=== PATIENT | male | born 1940 | race Caucasian/White ===

== ENCOUNTER → 2017-11-23 10:59 | Outpatient (CLI) | payer MEDICARE, OTHER, SELFPAY ==
--- NOTE | 2017-11-23 | DI.CT.S_ITS ---
PROCEDURE: CT LUMBAR SPINE WO CON INDICATIONS: LOW BACK PAIN TECHNIQUE: Noncontrast 3 mm thick sections acquired from the T12 level to the sacrum. Sagittal and coronal reformats were constructed. For radiation dose reduction, the following was used: automated exposure control. COMPARISON: None. FINDINGS: Image quality: Excellent. Bones: Partially visualized lateral curvature of the spine. Grade 1 anterolisthesis of L4 on L5. No acute vertebral body compression fractures. Diffuse endplate spurring and degenerative sclerosis. No suspicious lytic or blastic bony lesions. T12-L1: Mild broad-based posterior disc bulge, without definite high-grade canal stenosis. Moderate bilateral bony foraminal narrowing. L1-L2: There is dorsal epidural lipomatosis. Mild canal narrowing is present. Mild bilateral foraminal narrowing L2-L3: Dorsal epidural lipomatosis is present. There is mild broad-based posterior disc bulge. There is moderate-severe canal stenosis. Mild bilateral foraminal narrowing. L3-L4: Broad-based posterior disc bulge and dorsal epidural lipomatosis. Bilateral facet arthropathy. There is severe canal stenosis. Severe bilateral foraminal narrowing. L4-L5: Broad-based posterior disc bulge and ligamentum flavum hypertrophy. Bilateral facet disease from. Severe canal stenosis. Moderate bilateral foraminal narrowing L5-S1: Mild broad-based posterior disc bulge. Mild canal narrowing. Mild bilateral foraminal stenoses. Soft tissues: No retroperitoneal masses or hematomas. Visualized aorta is normal in caliber. Fluid-filled reservoir seen within the left pelvis partially visualized. IMPRESSION: Severe canal stenosis at L2-L3, L3-L4 and L4-L5 although due in part to dorsal epidural lipomatosis. Diffuse bilateral foraminal stenoses, most pronounced at L3-L4 (bilateral). Facet arthropathy. Partially visualized lateral curvature of the spine. Grade 1 anterolisthesis of L4 on L5. Dictated by: Jayden Edouard M.D. on 11/23/2017 at 13:10 Approved by: Jayden Edouard M.D. on 11/23/2017 at 13:49
== END ==
PROVIDERS: Family Provider Family Medicine; PCP Family Medicine; Visit Provider Physical Medicine & Rehabilitation
DX: M48.061 Spinal stenosis, lumbar region without neurogenic claudication (principal); M99.73 Connective tissue and disc stenosis of intervertebral foramina of lumbar region; M47.816 Spondylosis without myelopathy or radiculopathy, lumbar region; M43.16 Spondylolisthesis, lumbar region
CPT/HCPCS: 72131

== ENCOUNTER → 2018-04-28 11:54 | Outpatient (CLI) | payer MEDICARE, OTHER, SELFPAY ==
--- NOTE | 2018-04-28 13:21 | DIET.PN ---
DIABETES Nutrition Initial Assessment:? ASSESS:??78? yom?? referred for type 2 diabetes, HTN, and hyperlipidemia. Pt states he has had an elevated a1c in the past, but was just recently diagnosed. Has lost around 25# in the last few months through diet. He does not have a glucometer yet, but will contact insurance to find out which meter to get to begin checking. ? LABS: Per pt report:? a1c: 8.0 Chol: 161 T HDL: 51 LDL: 91 ? MEDS:?? metformin 500mg BID ? DIET: Per 24-hour recall:? B: pro bar w/ OJ L: turkey sandwich w/ yogurt butter D: lean cuisine with salad and 2-3 Tsp [place] ? Weight: 217 Ht:? 71.5 ? Exercise:? walks on treadmill at home 20-60 min low intensity (depending what is on TV) NUTRITION DX ? (1) Altered Nutrition related labs related to impaired glucose metabolism, lack of previous exposure to accurate nutrition information as evidenced by pt report, dx of diabetes, previous diet high in refined carbohydrates.? INTERVENTION(s): ??? (1) Discussed pathophysiology of diabetes and impact of nutrition/diet on blood sugar control.? Discussed fed versus non-fed state.? (2) Discussed the effect of carbohydrates/protein/fat on blood sugar control.? Stressed importance of consistent carbohydrate intake at each meal and provided instructions for recommended servings/portions of carbohydrates/protein per meal. Provided pt with educational material. ? (3) Reviewed carbohydrate counting and measuring carbohydrate content via servings sizes and reading nutrition labels.? Provided handouts.? (4) Discussed the difference between simple versus complex carbohydrates and the effect of fiber on blood sugar control.? Discussed various methods to increase fiber content in diet. ? (5) Stressed importance of meal timing and not going >4-5 hours between meals. Encouraged adding protein to evening snack to support glucose control overnight. Patient agreeable. ? (6) Discussed healthy weight loss goals of 1-2lbs per week through diet and exercise.? Pt agreeable to walking at least 30 minutes daily. (7) Reviewed a1c and its correlation to blood glucose numbers. Discussed recommended blood glucose ranges. (8) Discussed importance of self-monitoring, how often, and when to check. (9) Reviewed hyper/hypoglycemia and treatment. (10) Created SMART goals for pt self-care and success. SMART goals: (1) A1c goal of 7.5 in the next 3 mo (overall goal of 7.0) (2) Goal weight of 200# in the next 3 mo through dietary changes and increased physical activity. MONITOR/EVALUATE: Anticipate good compliance.? Nutrition follow-up scheduled for 1 month to review glucose log, food record, weight and discuss fat/protein intake.
== END ==
PROVIDERS: PCP Family Medicine; Visit Provider Family Medicine
DX: E11.9 Type 2 diabetes mellitus without complications (principal)
CPT/HCPCS: 97802

== ENCOUNTER → 2018-05-26 10:52 | Outpatient (CLI) | payer MEDICARE, OTHER, SELFPAY ==
--- NOTE | 2018-05-26 12:29 | DIET.PN ---
Nutrition Follow Up? ? ASSESS:? Pt has been keeping track of daily intake and steps since last appt x1 mo. Reports less snacking, but is having some difficulty incorporating the appropriate amount of carbohydrates per meal. States he averages around 150 grams per day. Reported other changes to dietary habits including comparing labels, choosing new sources of condiments and beverages, and choosing more natural food sources. Pt presented with several questions regarding increased fatigue following meal times, evening snack options, blood glucose monitoring, and carbohydrate vs sugar label reading. ? PMHX:??hyperlipidemia, HTN ? LABS: A1c: 7.3 (down from 8.0) per pt report Wt: 218 ? MEDS: Reviewed.? DM MEDS:??Metformin 500mg bid ??? Diet: Consuming ~45grams/meal + snacks ? EXERCISE:??walking on treadmill 15-45 min/day. Working to increase. ? NUTRITION Dx? (1) Altered nutrition related labs r/t type 2 DM, inconsistent carbohydrate intake as evidenced by pt report, dietary recall.?? ? INTERVENTION? (1) Discussed importance of monitoring BG in order to maintain good glucose control and adjust needed changes to eating habits. ?Recommended pt check with insurance or purchase glucometer to keep record of BG. ? (2) Reviewed carbohydrate counting and importance of consistent carbohydrate intake. Discussed different food items and how to locate accurate carbohydrate information. ? (3) Reviewed meal intake and importance of balanced meals to support glucose control and overeating.? (4) Assisted patient create a list of evening snack ideas to avoid hypoglycemia throughout the night. ?? ? MONITOR/EVALUATE: Pt receptive to information provided.? Follow-up scheduled for 1 month to discuss protein/fat and review food log.
== END ==
PROVIDERS: PCP Family Medicine; Visit Provider Family Medicine
DX: E11.9 Type 2 diabetes mellitus without complications (principal); Z79.84 Long term (current) use of oral hypoglycemic drugs
CPT/HCPCS: 97803

== ENCOUNTER → 2018-06-30 10:53 | Outpatient (CLI) | payer MEDICARE, OTHER, SELFPAY ==
--- NOTE | 2018-06-30 12:32 | DIET.PN ---
Diabetes: Advanced Nutrition F/U Assess: Met for patients 3rd appointment. Pt concerned he is eating too much as he is trying to maintain 30-45g carb count per meal with snacks in between. Reports weight gain since last appointment. Explained these are just guidelines and he is not required to eat as much if he is not hungry. Goal is consistency in carb amounts and blood glucose. Discussed removing daytime snacks between meals. Pt was able to get a monitor and has been checking BG 2x/day as recommended. I am concerned with a several elevated readings. Hoping these will resolve with modifications to eating patterns and recommendation for mild strength/resistance training. FBG is of biggest concern. FB-[id number] 2hrPP: 113-188 ( >200 x 2) Weight: 222 (up 4 lb from initial visit) Exercise: 20-35 min on treadmill most days Intervention: Discussed ? Fats ? effects on glucose, weight, heart disease, cholesterol ? Sat Vs Unsat ? Protein- animal and plant based options ? Low, med, high fat meats ? Sugar substitutes ? Sodium ? Health claims ? Grocery shopping guidelines ? Eating away from home ? Alcohol ? Sick day guidelines Monitor: F/U scheduled for 1 mo to review food log and bg record.
== END ==
PROVIDERS: PCP Family Medicine; Visit Provider Family Medicine
DX: E11.9 Type 2 diabetes mellitus without complications (principal)
CPT/HCPCS: 97803

== ENCOUNTER → 2018-07-28 12:58 | Outpatient (CLI) | payer MEDICARE, OTHER, SELFPAY ==
--- NOTE | 2018-07-28 15:52 | DIET.PN ---
Diabetes: F/U Assess: Pt presents today with concerns of weight gain. 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 Pt has been eating between 30-60 carbs per meal, but has not been keeping track of caloric, cholesterol or sodium intake. New A1c to be tested tomorrow (07/29/18). FB-190 2hrPP: 111-200 90 day av Weight: 223 (up 5 lb from initial visit) Intervention: 1. Discussed reducing carbs to 3 servings (45 grams) per meal. 2. Reviewed low saturated fat protein options. Provided list of lean proteins. 3. Provided individualized meal plan to include carb, protein, fat, sodium gram goals. Calories: 1800 kcal Carbs: 200 grams Protein: 70 grams Fat: 30 grams Sodium: 1500-2000mg Monitor: No f/u scheduled. Pt will f/u via phone call in 1 week with new weight and a1c.
== END ==
PROVIDERS: PCP Family Medicine; Visit Provider Family Medicine
DX: E11.9 Type 2 diabetes mellitus without complications (principal)
CPT/HCPCS: 97803

== ENCOUNTER → 2019-02-03 08:01 | Outpatient (CLI) | payer MEDICARE, OTHER, SELFPAY ==
--- NOTE | 2019-02-03 | DI.ECHO.S_ITS ---
[facility] +---------+ [facility] +---------+ : : [address] : : : : [id number] : : : : Phone: [phone] +---------+ Echocardiogram Report + + :Name: MARCO SCHMITT Study Date: 02/03/2019 Height: 71 in : :[facility] Weight: 220 lb : : Gender: Male BSA: 2.2 m2 : :: 1940 Age: 79 yrs BP: 108/68 mmHg: :Reason For Study: THORACIC AORTA ECTASIA : :Ordering Physician: Ney : :Shukri Pope Performed By: Elana Schwarz : + + Interpretation Summary The left ventricle is normal in size. The ejection fraction is estimated to be 55-60%. The right ventricle is normal in size and function. There is a pacemaker lead in the right ventricle. There is moderate to severe tricuspid regurgitation. Compared to the prior echo exam, there has been an increase in TR severity. The right ventricular systolic pressure is estimated to be at least 23 mmHg based on an estimated right atrial pressure of 3 mm Hg. The aortic root is mildly dilated. 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 In February 2016 it was 4.1 cm). Procedure: A two-dimensional transthoracic echocardiogram with color flow and Doppler was performed. The study quality was technically adequate. Comparison is made with the echocardiogram of 02/20/16 (complete). The patient has a paced rhythm. Left Ventricle: The left ventricle is normal in size. Left ventricular wall thickness is at the upper limits of normal. Proximal septal thickening is noted. There is no echo evidence for significant left ventricular outflow tract obstruction. There is no ventricular septal defect visualized. The ejection fraction is estimated to be 55-60%. Apical wall motion abnormality may reflect pacemaker activation. Septal motion is consistent with conduction abnormality. Diastolic function could not be accurately assessed due to paced rhythm. Right Ventricle: The right ventricle is normal in size and function. There is a pacemaker lead in the right ventricle. Atria: The left atrium is severely dilated. The left atrium has significantly increased in size since the prior echo exam. The right atrium is moderate to severely dilated. The right atrium has significantly increased in size since the prior echo exam. There is no Doppler evidence for an interatrial shunt. Mitral Valve: There is mild mitral annular calcification. The mitral valve leaflets are slightly calcified. There is mild mitral regurgitation. There has been no significant change since the previous study. Aortic Valve: The aortic valve is trileaflet. There is mild aortic valve sclerosis. There is no aortic valve stenosis. There is trace aortic regurgitation. Tricuspid Valve: The tricuspid annulus is dilated. There is moderate to severe tricuspid regurgitation. The right ventricular systolic pressure is estimated to be at least 23 mmHg based on an estimated right atrial pressure of 3 mm Hg. Compared to the prior echo exam, there has been an increase in TR severity. Pulmonic Valve: The pulmonic valve is not well seen, but is grossly normal. There is trace pulmonic regurgitation. Great Vessels: The aortic root is mildly dilated. The ascending aorta is mild-moderately enlarged. The aortic arch is normal in size. The IVC is of normal diameter and collapses greater than 50% with a sniff. This suggests a low right atrial pressure of 3 mm Hg. Pericardium/ Pleura There is no pericardial effusion. MMode/2D Measurements & Calculations LVIDd: 4.5 cm LVOT diam: 2.3 cm LVIDs: 2.9 cm Ao root diam: 4.4 cm FS: 35.5 % Aortic Jxn: 3.1 cm EPSS: 0.70 cm asc Aorta Diam: 4.0 cm IVSd: 1.0 cm Ao Arch Diam (Prox Trans): 2.0 cm LVPWd: 1.2 cm LV waller. diameter/BSA (cm/m^2): 2.0 LV sys. diameter/BSA (cm/m^2): 1.3 LA A2 area: 28.8 cm2 RA long axis: 5.7 cm LA A4 area: 27.3 cm2 RA area: 23.8 cm2 LA length (vol): 5.7 cm RA vol: 85.1 ml LA vol: 117.9 ml RA : 38.8 ml/m2 LA vol index: 53.7 ml/m2 IVC diam: 1.7 cm RVD1 (basal): 4.1 cm RVD2 (mid): 3.0 cm TAPSE: 2.7 cm Doppler Measurements & Calculations Ao V2 max: 93.6 cm/sec LVOT Max Eduardo: 75.1 cm/sec Ao V2 mean: 66.0 cm/sec LV V1 max P.3 mmHg Ao max P.5 mmHg LV V1 VTI: 15.4 cm Ao mean P.9 mmHg VIKI(I,D): 3.4 cm2 Ao V2 VTI: 18.7 cm VIKI(V,D): 3.3 cm2 sev ratio: 0.82 VIKI indexed to BSA (cm^2/m^2): 1.6 Med Peak E' Eduardo: 7.6 cm/sec TR max eduardo: 225.8 cm/sec Lat Peak E' Eduardo: 8.7 cm/sec TR max P.4 mmHg MVA(VTI): 4.2 cm2 PA V2 max: 64.4 cm/sec PA V2 mean: 40.5 cm/sec PA mean P.76 mmHg PA Accel Time: 0.07 sec MV V2 mean: 51.3 cm/sec SV(LVOT): 63.8 ml MV mean P.4 mmHg MV V2 VTI: 15.1 cm Reading Physician:04:59 PM
[2019-02-03 10:43] LABS: Cholesterol 135 mg/dL (140-199); HDL Cholesterol 43 mg/dL (40-60); LDL Cholesterol Calculated 75 mg/dL (<100); Triglycerides 83 mg/dL (35-150)
== END ==
PROVIDERS: PCP Family Medicine; Visit Provider Internal Medicine Cardiovascular Disease
DX: I08.1 Rheumatic disorders of both mitral and tricuspid valves (principal); I77.810 Thoracic aortic ectasia; E78.5 Hyperlipidemia, unspecified; Z95.0 Presence of cardiac pacemaker
CPT/HCPCS: 36415; 80061; 93306

== ENCOUNTER → 2020-03-01 13:34 | Outpatient (CLI) | payer MEDICARE, OTHER, SELFPAY ==
--- NOTE | 2020-03-01 | DI.ECHO.S_ITS ---
[facility]---------+ [facility] +---------+ : : [address] : : : : [id number] : : : : Phone: [phone]---------+ Echocardiogram Report + + :Name: MARCO SCHMITT Study Date: 03/01/2020 Height: 71 in : :[facility] Weight: 223 lb : : Gender: Male BSA: 2.2 m2 : :: 1940 Age: 80 yrs BP: 120/66 mmHg: :Reason For Study: TR : : Performed By: Hardeep Mason : :Referring: CHRISTINE ARENAS : + + Interpretation Summary The left ventricle is normal in size. The ejection fraction is estimated to be 55-60%. There has been no significant change in LV EF since the previous exam. The right ventricle is normal in size and function. There is a pacemaker lead in the right ventricle. There is moderate to severe tricuspid regurgitation. Compared to the prior echo exam, there has been no change in TR severity. The right ventricular systolic pressure is estimated to be at least 26 mmHg based on an estimated right atrial pressure of 3 mm Hg. Compared to the prior echo exam, there has been no change in the severity of pulmonary hypertension. The ascending aorta is mild-moderately enlarged. This is unchanged compared to the previous study. Procedure: A two-dimensional transthoracic echocardiogram with color flow and Doppler was performed. The study quality was technically good. Comparison is made with the echocardiogram of 02/03/19. The patient has a paced rhythm. Left Ventricle: The left ventricle is normal in size. There is normal left ventricular wall thickness. There is no thrombus. The ejection fraction is estimated to be 55-60%. There has been no significant change since the previous exam. There is a mild dyssynchronous contraction pattern due to the paced rhythm. Apical wall motion abnormality may reflect pacemaker activation. E/E' med: 11.6. Right Ventricle: The right ventricle is normal in size and function. There is a pacemaker lead in the right ventricle. Atria: The left atrium is severely dilated. The left atrium has remained unchanged in size since the prior echo exam. The right atrium is moderately dilated. There is no Doppler evidence for an atrial septal defect. Mitral Valve: There is mild mitral annular calcification. The mitral valve leaflets are slightly calcified. There is mild mitral regurgitation. Aortic Valve: The aortic valve is trileaflet. The aortic valve is mildly calcified. The aortic valve opens well. There is no aortic valve stenosis. There is trace aortic regurgitation. Tricuspid Valve: The tricuspid valve leaflets are thin and pliable. The tricuspid annulus is dilated. There is moderate to severe tricuspid regurgitation. The right ventricular systolic pressure is estimated to be at least 26 mmHg based on an estimated right atrial pressure of 3 mm Hg. Compared to the prior echo exam, there has been no change in TR severity. Compared to the prior echo exam, there has been no change in the severity of pulmonary hypertension. Pulmonic Valve: The pulmonic valve is normal in structure and function. There is trace pulmonic regurgitation. Great Vessels: The aortic root is normal size. The ascending aorta is mild- moderately enlarged. This is unchanged compared to the previous study. The pulmonary artery is normal size. The IVC is of normal diameter and collapses greater than 50% with a sniff. This suggests a low right atrial pressure of 3 mm Hg. Pericardium/ Pleura There is no pericardial effusion. There is no pleural effusion. MMode/2D Measurements & Calculations LVIDd: 4.6 cm LVOT diam: 2.5 cm LVIDs: 3.1 cm Ao root diam: 4.1 cm FS: 32.8 % asc Aorta Diam: 4.0 cm EPSS: 0.50 cm IVSd: 0.94 cm LVPWd: 0.93 cm LV waller. diameter/BSA (cm/m^2): 2.1 LV sys. diameter/BSA (cm/m^2): 1.4 LA dimension: 4.3 cm RA long axis: 6.2 cm LA A2 area: 27.9 cm2 RA area: 19.9 cm2 LA A4 area: 24.2 cm2 RA vol: 54.4 ml LA length (vol): 6.1 cm RA : 24.7 ml/m2 LA vol: 94.4 ml IVC diam: 2.1 cm LA vol index: 42.8 ml/m2 RVD1 (basal): 4.1 cm RVD2 (mid): 3.3 cm TAPSE: 1.9 cm Doppler Measurements & Calculations Ao V2 max: 106.7 cm/sec LVOT Max Eduardo: 87.5 cm/sec Ao V2 mean: 88.0 cm/sec LV V1 max P.1 mmHg Ao max P.6 mmHg LV V1 VTI: 18.0 cm Ao mean P.2 mmHg VIKI(I,D): 3.5 cm2 Ao V2 VTI: 24.8 cm VIKI(V,D): 3.9 cm2 sev ratio: 0.73 VIKI indexed to BSA (cm^2/m^2): 1.6 MV E max eduardo: 90.6 cm/sec TR max eduardo: 241.6 cm/sec MV A max eduardo: 1.6 cm/sec TR max P.4 mmHg MV E/A: 57.6 PA V2 max: 61.2 cm/sec Med Peak E' Eduardo: 7.8 cm/sec PA V2 mean: 41.4 cm/sec E/E' med: 11.6 PA mean P.79 mmHg Lat Peak E' Eduardo: 10.0 cm/sec PA pr(Accel): 61.9 mmHg E/E' lat: 9.1 E/e' average: 10.3 MV dec time: 0.16 sec SV(LVOT): 85.6 ml Reading Physician:09:19 AM
== END ==
PROVIDERS: PCP Family Medicine; Referring Provider Internal Medicine Cardiovascular Disease; Visit Provider Internal Medicine Cardiovascular Disease
DX: I08.1 Rheumatic disorders of both mitral and tricuspid valves (principal); I77.89 Other specified disorders of arteries and arterioles; Z95.0 Presence of cardiac pacemaker
CPT/HCPCS: 93306

== ENCOUNTER → 2020-07-04 09:43 | Outpatient (CLI) | payer MEDICARE, OTHER, SELFPAY ==
--- NOTE | 2020-07-04 09:45 | DI.RAD.S_ITS ---
PROCEDURE: XR LUMBAR SPINE MIN 4V INDICATIONS: lumbar radiculopathy TECHNIQUE: 5 views of the lumbar spine were acquired, including bilateral oblique views. COMPARISON: [facility], , L-SPINE 2-3 VIEWS, 03/20/2016, 12:41. FINDINGS: Bones: 5 nonrib-bearing vertebrae are present. Grade 1 anterolisthesis L4 on five. Trace retrolisthesis L1 on two. Severe facet hypertrophy and sclerosis from L4 through S1.. No vertebral body compression fractures. No suspicious bony lesions. Multilevel endplate osteophytes, particularly prominent at the T12-L1 level. Soft tissues: Overlying bowel gas pattern is normal. No suspicious soft tissue calcifications. Heavy vascular calcification present. Oblique images: No pars defects. IMPRESSION: 1. There is stable anterolisthesis at the L4-5 level compared to the prior study. 2. No visible pars defects on oblique images. 3. Severe facet sclerosis at L4-5 and L5-S1. Dictated by: Tricia Peoples M.D. on 07/04/2020 at 9:01 Approved by: Tricia Peoples M.D. on 07/04/2020 at 9:04
== END ==
PROVIDERS: PCP Family Medicine; Referring Provider Physical Medicine & Rehabilitation; Visit Provider Physical Medicine & Rehabilitation
DX: M54.16 Radiculopathy, lumbar region (principal); M43.16 Spondylolisthesis, lumbar region
CPT/HCPCS: 72110

== ENCOUNTER → 2020-08-13 13:39 | Outpatient (CLI) | payer MEDICARE, OTHER, SELFPAY ==
--- NOTE | 2020-08-13 13:54 | DI.CT.S_ITS ---
PROCEDURE: CT LUMBAR SPINE WO CON INDICATIONS: L4-5 spondylolisthesis TECHNIQUE: Noncontrast 3 mm thick sections acquired from the T12 level to the sacrum. Sagittal and coronal reformats were constructed. For radiation dose reduction, the following was used: automated exposure control. COMPARISON: [facility], CT, CT LUMBAR SPINE WO CON, 11/23/2017, 10:58. [facility], CR, XR LUMBAR SPINE MIN 4V, 07/04/2020, 9:45. FINDINGS: Image quality: Excellent. Bones: No acute vertebral body compression fractures. No suspicious lytic or blastic bony lesions. No pars defects. Mild grade 1 anterolisthesis is seen at the L4-L5 level without associated pars defects. 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 T12-L1: The disc height is well preserved. Bridging endplate osteophytes are seen. Moderate generalized disc bulge is seen. Moderate bilateral neural foraminal narrowing is seen. Mild central canal narrowing is seen. When comparison is made with the prior examination, these findings are similar. L1-L2: The disc height is well preserved. Mild to moderate disc bulge is seen. Bridging endplate osteophytes are seen. Moderate bilateral neural foraminal narrowing is seen. Moderate central canal narrowing is seen. When comparison is made with the prior examination, these findings are similar. L2-L3: The disc height is well preserved. At least moderate disc bulge is seen, which is eccentric to the left. There is a central disc protrusion. Moderate facet joint hypertrophy is seen. There is moderate to severe bilateral neural foraminal narrowing seen, left worse than right. Moderate to severe central canal narrowing is seen at this level. These imaging findings have progressed compared to the prior study. L3-L4: The disc height is well preserved. At least moderate disc bulge is seen, with a central disc protrusion. Moderate facet joint hypertrophy is seen. There is moderate to severe bilateral neural foraminal narrowing seen. Moderate to severe central canal narrowing is seen at this level. When comparison is made with the prior examination, these findings are similar. L4-L5: The disc height is well preserved. At least moderate disc bulge is seen. Prominent facet hypertrophy can be seen at this level. Associated hypertrophy of the ligamentum flavum can be seen. There is moderate to severe bilateral neural foraminal narrowing seen, right worse than left. There is moderate to severe central canal narrowing. When compared to 2018, these degenerative changes are mildly progressed. L5-S1: The disc height is well preserved. Mild to moderate disc bulge is seen. No significant neural foraminal or central canal narrowing can be seen. Soft tissues: No retroperitoneal masses or hematomas. Visualized aorta is normal in caliber. Atherosclerotic calcification is noted. Pacer leads are seen on the promotions intern image. IMPRESSION: Multiple levels of degenerative change are seen, which are overall worst at L3-L4 and L4-L5. The degenerative changes have progressed at L2-L3 and L4-L5 compared to 2018. Grade 1 L4-5 anterolisthesis is again seen. Incidental note is made of: Pacer leads Transitional lumbar anatomy, with sacralization of the L5 level Dictated by: Dylan Joy M.D. on 08/13/2020 at 14:12 Approved by: Dylan Joy M.D. on 08/13/2020 at 14:19
== END ==
PROVIDERS: PCP Family Medicine; Referring Provider Physical Medicine & Rehabilitation; Visit Provider Physical Medicine & Rehabilitation
DX: M43.16 Spondylolisthesis, lumbar region (principal); M47.26 Other spondylosis with radiculopathy, lumbar region; Z95.0 Presence of cardiac pacemaker
CPT/HCPCS: 72131

== ENCOUNTER → 2020-09-18 08:02 | Outpatient (CLI) | payer MEDICARE, OTHER, SELFPAY ==
[2020-09-18 15:09] LABS: COVID19 -Nasal RAPID Negative (Negative)
== END ==
PROVIDERS: PCP Family Medicine; Visit Provider Physical Medicine & Rehabilitation
DX: Z20.822 Contact with and (suspected) exposure to COVID-19 (principal)
CPT/HCPCS: 87635; C9803

== ENCOUNTER 2020-09-20 15:23 | Outpatient (CLI) | payer MEDICARE, OTHER, SELFPAY ==
[2020-09-20] VITALS (8 sets, daily range): BP systolic 100–142; BP diastolic 61–94; PULSE 69–78; RESP 12–20; TEMP 36.5; O2SAT 96–99
--- NOTE | 2020-09-20 15:25 | DI.RAD.S_ITS ---
PROCEDURE: PAIN L/S TRANSFORAMINAL INJECT INDICATIONS: SPONDYLOSIS COMPARISON: None. FINDINGS: Fluoroscopic spot filming was performed to verify placement of spinal needles at the right L4-L5 neural foraminal level(s), as labeled on the films. Appropriate location(s) of the needle tip(s) was confirmed by injection of iodinated contrast. IMPRESSION: Access needle localizes to the right L4-L5 neural foraminal level. Dictated by: Melody Jeffrey MD, PhD on 09/20/2020 at 16:42 Approved by: Melody Jeffrey MD, PhD on 09/20/2020 at 16:42
[2020-09-20] MEDS: MIDAZOLAM 5 MG/5 ML VIAL IV (16:05)
[2020-09-20] MEDS: IOPAMIDOL 15 ML VIAL 3 ML INJ (16:09)
[2020-09-20] MEDS: BETAMETHASONE 30 MG/5 ML MDV 6 MG INJ (16:10)
[2020-09-20] MEDS: BUPIVACAINE 0.25% (PF) VIAL 2 ML INJ (16:10)
[2020-09-20] MEDS: DEXAMETHASONE 10 MG/ML VIAL 20 MG INJ (16:10)
--- NOTE | 2020-09-20 16:20 | P.PCN_ITS ---
Date/Time/Diagnoses Date of procedure: 09/20/20 Time of procedure: 16:20 Pre-procedure diagnosis: 1. FORAMINAL STENOSIS WITH LE SYMPTOMS Post-procedure diagnosis: same Procedure Notes Procedure: 1. FLUOROSCOPICALLY GUIDED CONTRAST CONTROLLED TRANSFORAMINAL EPIDURAL STEROID INJECTION - RIGHT L4/5 TFESI Indications: David is referred by Dr. Palma for treatment of Foraminal Stenosis with Right LE Symptoms Physician: Logan Mcintosh Total Fluoroscopy time (seconds): 6 Total sedation minutes: 8 Complications: none Procedure in detail & Post-procedure care: FINDINGS Foraminal Nerve Root Compression secondary to disc disease and facet hypertrophy DESCRIPTION OF PROCEDURE Following review of allergy and review of potential side effects and complications, including, but not necessarily limited to, infection, allergic reaction, local tissue breakdown, stroke, temporary or permanent nerve injury, paralysis, and possible , the patient indicated that the patient understood and agreed to proceed. An informed consent document was signed by the patient, witnessed by a nurse, and placed in the patient's chart. Additionally, other treatment options including medications, modalities, and physical therapy were reviewed with the patient. After review of previous anaesthesic history and IV conscious sedation the patient was deemed safe to proceed with today?s procedure with IV conscious sedation as ASA class II designation. Safety time-out was performed to confirm patient ID, procedure to be performed and site of procedure. IV sedation was accomplished with a combination of 2mg of Versed was administered by the RN after DO order, titrated to patient comfort during the course of the procedure while the patient remained responsive to all verbal commands In the prone position following sterile prep and drape of the lumbar region, the right L4/5 posterior neuroforamen was identified fluoroscopically. The skin was anesthetized via a 25-gauge 1.5-inch needle with 1% lidocaine solution. At this point, a 25-gauge 3.5-inch spinal needle was atraumatically introduced and advanced under fluoroscopic guidance through the posterior right L4/5 neuroforamen to approximately the anterior aspect of the canal. Depth was confirmed on lateral view. Following negative aspiration, injection of approximately 1.5cc of Isovue 200 under live fluoroscopy in the AP view confi rmed excellent flow along the nerve root, into the epidural space without vascular or intrathecal uptake observed Radiological data, including multiple fluoroscopic views of the lumbosacral spine, reveal a spinal needle at the right L4/5 posterior neuroforamen. Subsequent views show flow of contrast material flowing superiorly and inferiorly along the nerve root confirming epidural flow. Subsequently, a test dose of 1.5 cc of 1% lidocaine solution was administered and patient was observed for two minutes for signs or symptoms of complications, including abdominal pain, shortness of breath, bilateral upper or lower extremity weakness, nausea and vomiting, prior to steroid injection. At this point, a total of 3cc or 20mg of dexamethasone and 6mg of betamethasone was injected without incident. The procedure tolerated the procedure well without signs or symptoms of complications prior to transfer to the recovery area continued monitoring without incident. The patient was then transferred to the recovery area where they were observed for an appropriate time after the injection. The patient reported a VAS score of 7 prior to the procedure and a post- procedure VAS of 0. POST OP INSTRUCTIONS The patient was provided a Pain Log to continue to record their response to the target-specific procedure prior to follow-up visit with their referring phy sician. Additionally, specific post-injection care instructions and a contact number to our office were provided if concerns arise regarding possible complications associated with the procedure are suspected.
== END 2020-09-20 16:38 | disposition home or self-care (01) ==
PROVIDERS: PCP Family Medicine; Referring Provider Physical Medicine & Rehabilitation; Visit Provider Physical Medicine & Rehabilitation
DX: M48.061 Spinal stenosis, lumbar region without neurogenic claudication (principal); M51.16 Intervertebral disc disorders with radiculopathy, lumbar region
CPT/HCPCS: 64483; J0702; J1100; J2250; J3010

== ENCOUNTER → 2020-11-07 09:53 | Outpatient (CLI) | payer MEDICARE, OTHER, SELFPAY ==
[2020-11-07 11:15] LABS: BUN Creatinine Ratio 25.2 (6-22); Blood Urea Nitrogen 26 mg/dL (9-20); Calcium 10.1 mg/dL (8.4-10.2); Carbon Dioxide 27 mmol/L (22-32); Chloride 104 mmol/L (98-107); Estimated Glomerular Filt Rate > 60.0 mL/min (>60); Glucose 141 mg/dL (80-110); HEMOLYSIS < 15 (0-50); Potassium 4.7 mmol/L (3.4-5.1); Sodium 140 mmol/L (137-145)
== END ==
PROVIDERS: PCP Family Medicine; Referring Provider Specialist; Visit Provider Specialist
DX: Z01.812 Encounter for preprocedural laboratory examination (principal)
CPT/HCPCS: 36415; 80048

== ENCOUNTER → 2020-11-08 12:19 | Outpatient (CLI) | payer MEDICARE, OTHER, SELFPAY ==
--- NOTE | 2020-11-08 12:42 | DI.CT.S_ITS ---
PROCEDURE: CT ABDOMEN PELVIS W CON INDICATIONS: Urinary tract issues TECHNIQUE: After the administration of oral and intravenous contrast, axial sections were acquired from the lung bases to the pubic symphysis. Coronal and sagittal reformats were performed. For radiation dose reduction, the following was used: automated exposure control, adjustment of mA and/or kV according to patient size. COMPARISON:[facility], CT, ABDOMEN/PELVIS WITH CONTRAST, 10/31/2013, 11:04. FINDINGS: Image quality: Excellent. Lung bases: Unremarkable. Heart: No significant findings. ABDOMEN: Liver: Unremarkable. Gallbladder: The gallbladder has been resected. Biliary ducts: Unremarkable. Pancreas: Unremarkable. Spleen: Unremarkable. Adrenal Glands: Unremarkable. Kidneys and Ureters: Unremarkable. No hydronephrosis or nephrolithiasis. Stomach and Bowel: Stomach, small bowel loops, and colon are unremarkable. Peritoneum: No abnormal intraperitoneal fluid. No free air. Ventral Wall: No hernia. Abdominal Nodes: No retroperitoneal or mesenteric adenopathy by size criteria. Vessels: Aorta and inferior vena cava are normal in size. PELVIS: Pelvic Organs: Unremarkable. Bladder: Unremarkable. At the left margin of the bladder there is a penile implant reservoir or, tracking through the left groin area inferiorly. No associated inflammation along the course of the device and catheter is seen. Pelvic Nodes: No enlarged lymph nodes. Miscellaneous: No inguinal hernias are seen. Bones: Unremarkable. No acute disease. IMPRESSION: No hydronephrosis or nephrolithiasis is found. Penile implants bilaterally with control catheter and device at the left hemipelvis and groin, respectively. No inflammation along these implanted structures is seen. Dictated by: Guanakito Cavazos M.D. on 11/08/2020 at 15:12 Approved by: Guanakito Cavazos M.D. on 11/08/2020 at 15:14
== END ==
PROVIDERS: PCP Family Medicine; Referring Provider Specialist; Visit Provider Specialist
DX: R39.9 Unspecified symptoms and signs involving the genitourinary system (principal)
CPT/HCPCS: 74177

== ENCOUNTER → 2020-11-19 11:01 | Outpatient (CLI) | payer MEDICARE, OTHER, SELFPAY ==
[2020-11-19 12:53] LABS: COVID19 -Nasal RAPID Negative (Negative)
== END ==
PROVIDERS: PCP Family Medicine; Visit Provider Physician Assistant
DX: Z01.812 Encounter for preprocedural laboratory examination (principal); Z20.822 Contact with and (suspected) exposure to COVID-19
CPT/HCPCS: 87635; C9803

== ENCOUNTER 2020-11-20 13:47 | Outpatient (CLI) | payer MEDICARE, OTHER, SELFPAY ==
[2020-11-20] VITALS (8 sets, daily range): BP systolic 104–129; BP diastolic 57–79; PULSE 69–87; RESP 12–22; TEMP 36.4; O2SAT 94–99
--- NOTE | 2020-11-20 13:50 | DI.RAD.S_ITS ---
PROCEDURE: PAIN L/SI FACET INJ/BLK 1STL INDICATIONS: SPONDYLOSIS COMPARISON: [facility], XA, PAIN L/S TRANSFORAMINAL INJECT, 09/20/2020, 16:10. FINDINGS: Fluoroscopic spot filming was performed to verify placement of spinal needles at the L4-5 and L5-S1 levels, as labeled on the films. Appropriate locations of the needle tips were confirmed by injection of iodinated contrast. IMPRESSION: Access needles localize to the right L4-5 and L5-S1 facet joints. Dictated by: Josh Dupont M.D. on 11/20/2020 at 16:36 Approved by: Josh Dupont M.D. on 11/20/2020 at 16:38
[2020-11-20] MEDS: MIDAZOLAM 5 MG/5 ML VIAL IV (14:24)
[2020-11-20] MEDS: BETAMETHASONE 30 MG/5 ML MDV 12 MG INJ (14:26)
[2020-11-20] MEDS: BUPIVACAINE 0.5% (PF) VIAL 2 ML INJ (14:26)
[2020-11-20] MEDS: IOPAMIDOL 15 ML VIAL 3 ML INJ (14:26)
--- NOTE | 2020-11-20 14:37 | P.PCN_ITS ---
Date/Time/Diagnoses Date of procedure: 11/20/20 Time of procedure: 14:37 Pre-procedure diagnosis: 1. FACET ARTHROPATHY, 2. AXIAL LBP, 3. MULTILEVEL DDD Post-procedure diagnosis: same Procedure Notes Procedure: 1. FLUOROSCOPICALLY GUIDED CONTRAST CONTROLLED FACET JOINT INJECTIONS RIGHT L4/5, L5/S1 Indications: David Gonzalez is referred by Dr. Palma for treatment of Axial LBP Physician: Logan Mcintosh Total Fluoroscopy time (seconds): 7 Total sedation minutes: 9 Complications: none Procedure in detail & Post-procedure care: FINDINGS Multilevel Facet Arthropathy with Clinically significant axial LBP DESCRIPTION OF PROCEDURE Fluoroscopically guided, contrast-controlled right L4/5, L5/S1 facet joint injections. Following review of allergy and review of potential side effects and complications, including, but not necessarily limited to, infection, allergic reaction, local tissue breakdown, stroke, temporary or permanent nerve injury, paralysis, and possible , the patient indicated that the patient understood and agreed to proceed. An informed consent document was signed by the patient, witnessed by a nurse, and placed in the patient's chart. Additionally, other treatment options including medications, modalities, and physical therapy were reviewed with the patient. After review of previous anaesthesic history and IV conscious sedation the patient was deemed safe to proceed with today?s procedure with IV conscious sedation as ASA class II designation. Safety time-out was performed to confirm patient ID, procedure to be performed and site of procedure. IV sedation was accomplished with a combination of 2mg of Versed was administered by the RN after DO order, titrated to patient comfort during the course of the procedure while the patient remained responsive to all verbal commands. In the prone position, following sterile prep and drape of the lumbar region, the posterior aspect of the right L4/5, L5/S1 facet joints were identified fluoroscopically. The skin was anesthetized via a 25-gauge 1.5-inch needle with 1% lidocaine solution into the corresponding facet joints. At this point, a 22- gauge 3.5-inch spinal needle was atraumatically introduced and advanced under fluoroscopic guidance into the corresponding facet joints. Following negative aspiration, injections of approximately 0.2-cc of Isovue 200 confirmed interarticular placement without vascular uptake. Radiological data, including multiple fluoroscopic views of the lumbosacral spine, reveal a spinal needle at the right L4/5, L5/S1 facet joints. Subsequent views show flow of contrast material both superiorly and inferiorly within the joint space without vascular or intrathecal uptake. At this point, a total of 0.5cc including a mixture of 0.25cc Marcaine and 0 .25cc betamethasone was injected without complication into each of the corresponding facet joints. The procedure tolerated the procedure well without signs or symptoms of complications prior to transfer to the recovery area continued monitoring without incident. The patient was then transferred to the recovery area where they were observed for an appropriate period of time after the injection. The patient reported a VAS score of 7 prior to the procedure and a post-procedure VAS of 0. POST OP INSTRUCTIONS The patient was provided a Pain Log to continue to record their response to the target-specific procedure prior to follow-up visit with their referring physician. Additionally, specific post-injection care instructions and a contact number to our office were provided if concerns arise regarding possible complications associated with the procedure are suspected.
== END 2020-11-20 15:05 | disposition home or self-care (01) ==
LOC: RAD 13:50
PROVIDERS: PCP Family Medicine; Referring Provider Physical Medicine & Rehabilitation; Visit Provider Physical Medicine & Rehabilitation
DX: M47.816 Spondylosis without myelopathy or radiculopathy, lumbar region (principal); M47.817 Spondylosis without myelopathy or radiculopathy, lumbosacral region; M51.36 Other intervertebral disc degeneration, lumbar region; M51.37 Other intervertebral disc degeneration, lumbosacral region; M54.5 Low back pain
CPT/HCPCS: 64493; 64494; J0702; J2250; J3010

== ENCOUNTER → 2020-12-25 07:31 | Outpatient (CLI) | payer MEDICARE, OTHER, SELFPAY ==
[2020-12-25 13:19] LABS: COVID19 -Nasal RAPID Negative (Negative)
== END ==
PROVIDERS: PCP Family Medicine; Visit Provider Physical Medicine & Rehabilitation
DX: Z20.822 Contact with and (suspected) exposure to COVID-19 (principal)
CPT/HCPCS: 87635; C9803

== ENCOUNTER 2020-12-27 14:56 | Outpatient (CLI) | payer MEDICARE, OTHER, SELFPAY ==
[2020-12-27] VITALS (8 sets, daily range): BP systolic 78–119; BP diastolic 42–64; PULSE 69–80; RESP 10–20; TEMP 36.7; O2SAT 93–97
--- NOTE | 2020-12-27 15:00 | DI.RAD.S_ITS ---
PROCEDURE: PAIN L INTERLAMINAR/CAUDAL INJ INDICATIONS: L4-5 translaminar KELLEY COMPARISON: None. FINDINGS: Fluoroscopic spot filming was performed to verify placement of spinal needles at the L4-L5 level(s), as labeled on the films. Appropriate location(s) of the needle tip(s) was confirmed by injection of iodinated contrast. Dictated by: Jayden Edouard M.D. on 12/27/2020 at 15:55 Approved by: Jayden Edouard M.D. on 12/27/2020 at 15:56
[2020-12-27] MEDS: BETAMETHASONE 30 MG/5 ML MDV 6 MG INJ (15:33)
[2020-12-27] MEDS: BUPIVACAINE 0.25% (PF) VIAL 2 ML INJ (15:33)
[2020-12-27] MEDS: DEXAMETHASONE 10 MG/ML VIAL 20 MG INJ (15:33)
[2020-12-27] MEDS: IOPAMIDOL 15 ML VIAL 3 ML INJ (15:33)
[2020-12-27] MEDS: MIDAZOLAM 5 MG/5 ML VIAL IV (15:34)
--- NOTE | 2020-12-27 15:44 | P.PCN_ITS ---
Date/Time/Diagnoses Date of procedure: 12/27/20 Time of procedure: 15:44 Pre-procedure diagnosis: 1. HNP WITH RADICULAR FEATURES, 2. MULTILEVEL CENTRAL STENOSIS, Post-procedure diagnosis: same Procedure Notes Procedure: 1. FLUOROSCOPICALLY GUIDED CONTRAST CONTROLLED INTERLAMINAR EPIDURAL STEROID INJECTION -L4/5 Indications: David Gonzalez is referred by Dr. Palma for treatment of Bilateral Foraminal Stenosis R>L LE symptoms. Physician: Logan Mcintosh Total Fluoroscopy time (seconds): 7 Total sedation minutes: 11 Complications: none Procedure in detail & Post-procedure care: FINDINGS Multilevel Central Spinal Stenosis with Nerve Root Compression DESCRIPTION OF PROCEDURE Fluoroscopically guided, contrast-controlled L4/5 translaminar epidural steroid injection. Following review of allergy and review of potential side effects and complications, including, but not necessarily limited to, infection, allergic reaction, local tissue breakdown, temporary as well as permanent nerve injury, paralysis, stroke and possible , the patient indicated that the patient understood and agreed to proceed. An informed consent document was signed by the patient, witnessed by a nurse, and placed in the patient's chart. Additionally, other treatment options including modalities, medications, and physical therapy were reviewed with the patient. After review of previous anaesthesic history and IV conscious sedation the patient was deemed safe to proceed with today?s procedure with IV conscious sedation as ASA class II designation. Safety time-out was performed to confirm patient ID, procedure to be performed and site of procedure. IV sedation was accomplished with a combination of 2mg of Versed was administered by the RN after DO order, titrated to patient comfort during the course of the procedure while the patient remained responsive to all verbal commands In the prone position, following sterile prep and drape of the lumbar region, the L4/5 translaminar space was identified fluoroscopically. The skin was anesthetized via a 25-gauge, 1.5inch needle with 1% lidocaine solution. At this point, a 22-gauge short bevel spinal needle was atraumatically introduced and advanced under fluoroscopic guidance into the region of the L4/5 translaminar space. Depth was confirmed on lateral view. Radiological data, including multiple fluoroscopic views of the lumbar spine, reveal a spinal needle at the L4/5 translaminar space. Lateral views then show placement of the needle in the epidural space. Subsequent views show contrast material flowing superiorly and inferiorly in the epidural space. No vascular or intrathecal uptake is observed. At this point, using loss of resistance technique with saline and air, the epidural space was entered. This was confirmed following negative aspiration with injection of approximately 1.5cc of Isovue 200, showing excellent epidural flow without vascular or intrathecal uptake. At this point, 1cc of 1% lidocaine solution combined with 3cc or 20mg of dexamethasone and 6mg betamethasone was injected without incident. The patient tolerated the procedure well without signs or symptoms of complications prior to transfer to the recovery area continued monitoring without incident. The patient was then transferred to the recovery area where they were observed for an appropriate period of time after the injection. The patient reported a VAS score of 6 prior to the procedure and a post- procedure VAS of 0. POST OP INSTRUCTIONS The patient was provided a Pain Log to continue to record their response to the target-specific procedure prior to follow-up visit with their referring physician. Additionally, specific post-injection care instructions and a contact number to our office were provided if concerns arise regarding possible complications associated with the procedure are suspected.
== END 2020-12-27 16:06 | disposition home or self-care (01) ==
LOC: RAD 14:59
PROVIDERS: PCP Family Medicine; Referring Provider Physical Medicine & Rehabilitation; Visit Provider Physical Medicine & Rehabilitation
DX: M51.16 Intervertebral disc disorders with radiculopathy, lumbar region (principal); M48.061 Spinal stenosis, lumbar region without neurogenic claudication; R39.9 Unspecified symptoms and signs involving the genitourinary system
CPT/HCPCS: 62323; 99152; 99214; J0702; J1100; J2250; J3010

== ENCOUNTER → 2021-02-25 09:59 | Outpatient (CLI) | payer MEDICARE, OTHER, SELFPAY ==
[2021-02-25 13:15] LABS: COVID19 -Nasal RAPID Negative (Negative)
== END ==
PROVIDERS: PCP Family Medicine; Visit Provider Physical Medicine & Rehabilitation
DX: Z20.822 Contact with and (suspected) exposure to COVID-19 (principal)
CPT/HCPCS: 87635; C9803

== ENCOUNTER 2021-02-26 12:49 | Outpatient (CLI) | payer MEDICARE, OTHER, SELFPAY ==
--- NOTE | 2021-02-26 12:51 | DI.RAD.S_ITS ---
PROCEDURE: PAIN L/S TRANSFORAM INJECT GENNA COMPARISON: None. INDICATIONS: SPONDYLOSIS FINDINGS: Fluoroscopic spot filming was performed to verify placement of spinal needles on both sides at the L4-L5 level, as labeled on the films. Appropriate location of the needle tips was confirmed by injection of iodinated contrast. IMPRESSION: Intraprocedural examination within normal limits. Dictated by: Dylan Joy M.D. on 02/26/2021 at 13:59 Approved by: Dylan Joy M.D. on 02/26/2021 at 13:59
[2021-02-26 13:10] VITALS: BP 138/74; PULSE 70; RESP 16; TEMP 36.4; O2SAT 98
[2021-02-26 13:55] VITALS: BP 128/68; PULSE 69; RESP 14; O2SAT 98
[2021-02-26] MEDS: MIDAZOLAM 5 MG/5 ML VIAL IV (13:55)
[2021-02-26 14:00] VITALS: BP 127/68; PULSE 69; RESP 15; O2SAT 97
[2021-02-26] MEDS: BUPIVACAINE 0.25% (PF) VIAL 2 ML INJ (14:00)
[2021-02-26] MEDS: IOPAMIDOL 15 ML VIAL 3 ML INJ (14:00)
[2021-02-26] MEDS: BETAMETHASONE 30 MG/5 ML MDV 12 MG INJ (14:01)
[2021-02-26] MEDS: DEXAMETHASONE 10 MG/ML VIAL 20 MG INJ (14:01)
--- NOTE | 2021-02-26 14:11 | PM.PROC.IR.1 ---
Date/Time/Diagnoses Date of procedure: 02/26/21 Time of procedure: 14:12 Pre-procedure diagnosis: 1. FORAMINAL STENOSIS WITH LE SYMPTOMS Procedure Notes Procedure: 1. FLUOROSCOPICALLY GUIDED CONTRAST CONTROLLED TRANSFORAMINAL EPIDURAL STEROID INJECTION - BILATERAL L4/5 TFESI Indications: David Gonzalez is referred by Dr. Palma for treatment of Foraminal Stenosis with bilateral LE Symptoms Physician: Logan Mcintosh Total Fluoroscopy time (seconds): 14 Total sedation minutes: 9 Complications: none Procedure in detail & Post-procedure care: FINDINGS Foraminal Nerve Root Compression secondary to disc disease and facet hypertrophy DESCRIPTION OF PROCEDURE Following review of allergy and review of potential side effects and complications, including, but not necessarily limited to, infection, allergic reaction, local tissue breakdown, stroke, temporary or permanent nerve injury, paralysis, and possible , the patient indicated that the patient understood and agreed to proceed. An informed consent document was signed by the patient, witnessed by a nurse, and placed in the patient's chart. Additionally, other treatment options including medications, modalities, and physical therapy were reviewed with the patient. After review of previous anaesthesic history and IV conscious sedation the patient was deemed safe to proceed with today?s procedure with IV conscious sedation as ASA class II designation. Safety time-out was performed to confirm patient ID, procedure to be performed and site of procedure. IV sedation was accomplished with a combination of 2mg of Versed was administered by the RN after DO order, titrated to patient comfort during the course of the procedure while the patient remained responsive to all verbal commands In the prone position following sterile prep and drape of the lumbar region, the right L4/5 posterior neuroforamen was identified fluoroscopically. The skin was anesthetized via a 25-gauge 1.5-inch needle with 1% lidocaine solution. At this point, a 25-gauge 3.5-inch spinal needle was atraumatically introduced and advanced under fluoroscopic guidance through the posterior right L4/5 neuroforamen to approximately the anterior aspect of the canal. Depth was confirmed on lateral view. Following negative aspiration, injection of approximately 1.5cc of Isovue 200 under live fluoroscopy in the AP view confirmed excellent flow along the nerve root, into the epidural space without vascular or intrathecal uptake observed Radiological data, including multiple fluoroscopic views of the lumbosacral spine, reveal a spinal needle at the right L4/5 posterior neuroforamen. Subsequent views show flow of contrast material flowing superiorly and inferiorly along the nerve root confirming epidural flow. Subsequently, a test dose of 1.5cc of 1% lidocaine solution was administered and patient was observed for two minutes for signs or symptoms of complications, including abdominal pain, shortness of breath, bilateral upper or lower extremity weakness, nausea and vomiting, prior to steroid injection. At this point, a total of 3cc or 20mg of dexamethasone and 6mg betamethasone was injected without incident. Attention was then refocused to the left L4/5 level where the identical procedure was replicated. The procedure tolerated the procedure well without signs or symptoms of complications prior to transfer to the recovery area continued monitoring without incident. The patient was then transferred to the recovery area where they were observed for an appropriate time after the injection. The patient reported a VAS score of 7 prior to the procedure and a post-procedure VAS of 0. POST OP INSTRUCTIONS The patient was provided a Pain Log to continue to record their response to the target-specific procedure prior to follow-up visit with their referring physician. Additionally, specific post-injection care instructions and a contact number to our office were provided if concerns arise regarding possible complications associated with the procedure are suspected.
[2021-02-26 14:15] VITALS: BP 122/69; PULSE 69; RESP 14; O2SAT 98
[2021-02-26 14:20] VITALS: BP 113/71; PULSE 69; RESP 11; O2SAT 98
[2021-02-26 14:25] VITALS: BP 108/64; PULSE 69; RESP 10; O2SAT 97
== END 2021-02-26 14:38 | disposition home or self-care (01) ==
LOC: RAD 12:50
PROVIDERS: PCP Family Medicine; Referring Provider Physical Medicine & Rehabilitation; Visit Provider Physical Medicine & Rehabilitation
DX: M48.061 Spinal stenosis, lumbar region without neurogenic claudication (principal); M51.16 Intervertebral disc disorders with radiculopathy, lumbar region
CPT/HCPCS: 64483; J0702; J1100; J2250; J3010

== ENCOUNTER → 2021-02-27 08:12 | Outpatient (CLI) | payer MEDICARE, OTHER, SELFPAY ==
[2021-02-27 11:59] LABS: COVID19 -Nasal RAPID Negative (Negative)
== END ==
PROVIDERS: PCP Family Medicine; Visit Provider Nurse Practitioner
DX: Z20.822 Contact with and (suspected) exposure to COVID-19 (principal)
CPT/HCPCS: 87635; C9803

== ENCOUNTER → 2021-03-01 10:09 | Day surgery (SDC) | payer MEDICARE, OTHER, SELFPAY ==
[2021-02-28 12:44] VITALS: BMI 33.0
[2021-03-01] VITALS (9 sets, daily range): BP systolic 108–147; BP diastolic 66–89; PULSE 68–75; RESP 9–18; TEMP 36.3–36.8; O2SAT 93–98; BMI 33.0
--- NOTE | 2021-03-01 10:43 | PM.PREOP ---
Pre-operative Note Interval Note History & Physical reviewed/Exam performed by Physician: Yes Changes to H&P: No
[2021-03-01] MEDS: CEFAZOLIN 1 GM VIAL 2 GM IV (11:13)
--- NOTE | 2021-03-01 11:30 | SUR.OPER ---
Lithotomy on padded OR bed, head on pillow, arms secured on padded arm boards at <90 degrees abduction. Legs secured in padded yellow fins stirrups.
--- NOTE | 2021-03-01 11:44 | PM.OP.1 ---
Operative Date/Time/Diagnoses Date of procedure: 03/01/21 Time of procedure: 11:44 Pre-op diagnosis: 1. Bladder neck contracture. 2. Lower urinary tract symptoms. 3. Incomplete bladder emptying. Post-op diagnosis: same Procedure & Clinicians Procedure: 1. Transurethral laser resection bladder neck contracture. Same procedure as scheduled: Yes Indications: 1. Bladder neck contracture 2. Lower urinary tract symptoms. 3. Incomplete bladder emptying. Surgeon: Charlotte Sheridan Click Yes if Unassisted: Yes Anesthesia Type: General Operative Notes Findings: 1. Urethra-normal caliber without annular stricture or lesion. 2. External sphincter-coapted with normal overlying urothelium. 3. Prostate-3.5-4 cm length status post TUR and nonobstructing. 4. [id number] Croatian bladder neck contracture-fixed. Lower and lateral lips were laser resected. Closure Type: not applicable Specimen(s): none sent Estimated Blood Loss (mL): 0 Blood products transfused: none Tourniquet time (min): 0 Procedure in detail: Patient was positioned supine was administered general anesthesia. He was then repositioned semi lithotomy and the lower abdomen, genitalia, and groin were then prepped and draped in sterile fashion. The 20 Croatian laser endoscope was then passed of lower urinary tract with the findings as described above. Next all operating room personnel and patient were fitted with laser safety eyewear. A 550 micron laser fiber was then selected and passed through the working port of the laser endoscope. Laser resection of the bladder neck contracture was then undertaken from 3:00 to 9:00. Hemostasis was excellent. Bladder was then drained completely and all instrumentation removed. The patient was then repositioned in supine, awakened, and transferred to a rmills for transport to PACU. Complications: none Post-operative Condition: stable Plan for aftercare: Discharge home.
== END | disposition home or self-care (01) ==
PROVIDERS: PCP Family Medicine; Referring Provider Specialist; Visit Provider Specialist
PROC: 0TBC8ZZ Excision of Bladder Neck, Via Natural or Artificial Opening Endoscopic (ICD-10-PCS; CPT 52500; principal; 2021-03-01 11:45)
DX: N32.0 Bladder-neck obstruction (principal); R33.9 Retention of urine, unspecified; J45.909 Unspecified asthma, uncomplicated; I48.91 Unspecified atrial fibrillation; I10 Essential (primary) hypertension; G47.33 Obstructive sleep apnea (adult) (pediatric); E66.9 Obesity, unspecified; Z95.0 Presence of cardiac pacemaker; E11.9 Type 2 diabetes mellitus without complications; Z79.84 Long term (current) use of oral hypoglycemic drugs
CPT/HCPCS: 52500; J0690; J2250; J2405; J2704; J3010

== ENCOUNTER → 2021-03-04 10:52 | Outpatient (CLI) | payer MEDICARE, OTHER, SELFPAY ==
[2021-03-04 13:27] LABS: Appearance Urine UA CLEAR; Bilirubin Urine UA NEGATIVE (NEGATIVE); Color Urine UA YELLOW; Glucose Urine UA NEGATIVE (Negative); Ketones Urine UA NEGATIVE (NEGATIVE); Leukocyte Esterase Urine UA NEGATIVE (NEGATIVE); Nitrite Urine UA NEGATIVE (Negative); Occult Blood Urine UA 2+ (Negative); Protein Urine UA NEGATIVE (Negative); Urobilinogen Urine UA 0.2 E.U./dL (0.2); pH Urine UA 6.5 (4.5-8.0)
[2021-03-04 13:42] LABS: Bacteria Urine None Seen; Culture Indicated Urine Cult Not Indicated; RBC Urine 5-10/HPF (0-5/HPF); WBC Urine None Seen (0-5/HPF)
== END ==
PROVIDERS: PCP Family Medicine; Referring Provider Specialist; Visit Provider Specialist
DX: R30.0 Dysuria (principal); R39.9 Unspecified symptoms and signs involving the genitourinary system
CPT/HCPCS: 51798; 81001

== ENCOUNTER → 2021-03-18 12:34 | Outpatient (CLI) | payer MEDICARE, OTHER, SELFPAY ==
[2021-03-18 13:38] LABS: Appearance Urine UA CLEAR; Bilirubin Urine UA NEGATIVE (NEGATIVE); Color Urine UA YELLOW; Glucose Urine UA NEGATIVE (Negative); Ketones Urine UA NEGATIVE (NEGATIVE); Leukocyte Esterase Urine UA TRACE (NEGATIVE); Nitrite Urine UA NEGATIVE (Negative); Occult Blood Urine UA TRACE-INTACT (Negative); Protein Urine UA NEGATIVE (Negative); Specific Gravity Urine UA <=1.005 (1.000-1.035); Urobilinogen Urine UA 0.2 E.U./dL (0.2); pH Urine UA 6.5 (4.5-8.0)
[2021-03-18 13:48] LABS: Bacteria Urine None Seen; Culture Indicated Urine Cult Not Indicated; RBC Urine None Seen (0-5/HPF); Urine Comments Microscopic Normal; WBC Urine None Seen (0-5/HPF)
== END ==
PROVIDERS: Urology; PCP Family Medicine; Referring Provider Nurse Practitioner Acute Care; Visit Provider Nurse Practitioner Acute Care
DX: R30.0 Dysuria (principal)
CPT/HCPCS: 81001

== ENCOUNTER → 2021-04-25 06:59 | Outpatient (CLI) | payer MEDICARE, OTHER, SELFPAY ==
[2021-04-25 08:43] LABS: Albumin Globulin Ratio 1.6 (1.0-2.8); Alkaline Phosphatase 104 U/L (38-126); Aspartate Aminotransferase 26 IU/L (17-59); BUN Creatinine Ratio 21.7 (6-22); Blood Urea Nitrogen 23 mg/dL (9-20); Calcium 10.4 mg/dL (8.4-10.2); Carbon Dioxide 27 mmol/L (22-32); Chloride 103 mmol/L (98-107); Cholesterol 124 mg/dL (140-199); Estimated Glomerular Filt Rate > 60.0 mL/min (>60); Globulin 2.5 g/dL (1.7-4.1); Glucose 166 mg/dL (80-110); HEMOLYSIS < 15 (0-50); Sodium 139 mmol/L (137-145); Total Protein 6.5 g/dL (6.3-8.2); Triglycerides 152 mg/dL (35-150)
[2021-04-25 08:44] LABS: Alanine Aminotransferase 28 IU/L (<50); HDL Cholesterol 33 mg/dL (40-60); LDL Cholesterol Calculated 61 mg/dL (<100)
== END ==
PROVIDERS: PCP Family Medicine; Referring Provider Nurse Practitioner; Visit Provider Nurse Practitioner
DX: I10 Essential (primary) hypertension (principal); I25.10 Atherosclerotic heart disease of native coronary artery without angina pectoris; I48.20 Chronic atrial fibrillation, unspecified; E78.5 Hyperlipidemia, unspecified
CPT/HCPCS: 36415; 80053; 80061

== ENCOUNTER → 2021-05-22 10:49 | Outpatient (CLI) | payer MEDICARE, OTHER, SELFPAY ==
[2021-05-22 11:39] LABS: Appearance Urine UA CLOUDY; Bilirubin Urine UA NEGATIVE (NEGATIVE); Color Urine UA YELLOW; Glucose Urine UA NEGATIVE (Negative); Ketones Urine UA NEGATIVE (NEGATIVE); Leukocyte Esterase Urine UA 3+ (NEGATIVE); Nitrite Urine UA NEGATIVE (Negative); Occult Blood Urine UA 2+ (Negative); Protein Urine UA 1+ (Negative); Urobilinogen Urine UA 0.2 E.U./dL (0.2)
[2021-05-22 11:53] LABS: Bacteria Urine Moderate (10-30); Culture Indicated Urine Specimen Cultured; RBC Urine 5-10/HPF (0-5/HPF); WBC Urine 30-100/HPF (0-5/HPF)
== END ==
PROVIDERS: PCP Family Medicine; Referring Provider Specialist; Visit Provider Specialist
DX: R30.0 Dysuria (principal)
CPT/HCPCS: 81001; 87077; 87086; 87186

== ENCOUNTER → 2021-06-26 15:40 | Outpatient (CLI) | payer MEDICARE, OTHER, SELFPAY ==
--- NOTE | 2021-06-26 | DI.ECHO.S_ITS ---
[facility] +---------+ : : [address] : [address] : : : : [id number] : : : : Phone: [phone]---------+ Echocardiogram Report + + :Name: MARCO SCHMITT Study Date: 06/26/2021 Height: 71.5 in: :[facility] ReadingLocation: Weight: 210 lb : : Gender: Male BSA: 2.2 m2 : :: 1940 Age: 81 yrs BP: 134/79 mmHg: :Reason For Study: TRICUSPID INSUFFICIENCY : :Ordering Physician: KETURAH, : :RONNI Performed By: Chirsten Castillo : :Referring: RONNI REBOLLAR : + + Interpretation Summary The left ventricle is normal in size. The ejection fraction is estimated to be 55-60%. There has been no significant change in LVEF since the previous exam. The right ventricle is borderline dilated. There is a pacemaker lead in the right ventricle. Right ventricular systolic function is at the lower limits of normal. There is moderate to severe tricuspid regurgitation. Compared to the prior echo exam, there has been no change in TR severity. The right ventricular systolic pressure is estimated to be at least 31 mmHg based on an estimated right atrial pressure of 3 mm Hg. The ascending aorta is mild-moderately enlarged. 4.2 cm in diameter. Previously 4.0 cm. Procedure: A two-dimensional transthoracic echocardiogram with color flow and Doppler was performed. The study quality was technically adequate. Comparison is made with the echocardiogram of 03/01/2020. The patient has a paced rhythm. The heart rate ranged between 58-75 bpm during the study. Left Ventricle: The left ventricle is normal in size. Left ventricular wall thickness is borderline increased. There is no thrombus. The ejection fraction is estimated to be 55-60%. There has been no significant change since the previous exam. Apical wall motion abnormality may reflect pacemaker activation. There is a mild dyssynchronous contraction pattern due to the paced rhythm. Diastolic function could not be accurately assessed due to paced rhythm. E/E' med: 8.7. Right Ventricle: The right ventricle is borderline dilated. There is a pacemaker lead in the right ventricle. Right ventricular systolic function is at the lower limits of normal. Atria: The left atrium is severely dilated. There has been no significant change since the previous study. The right atrium is moderately dilated. There has been no significant change since the previous study. There is no Doppler evidence for an interatrial shunt. Mitral Valve: There is mild mitral annular calcification. The mitral valve leaflets appear mildly thickened, but open well. There is mild mitral regurgitation. Aortic Valve: The aortic valve is trileaflet. The aortic valve is mildly calcified. The aortic valve opens well. There is no aortic valve stenosis. No aortic regurgitation is present. Tricuspid Valve: The tricuspid annulus is dilated. There is moderate to severe tricuspid regurgitation. The right ventricular systolic pressure is estimated to be at least 31 mmHg based on an estimated right atrial pressure of 3 mm Hg. Compared to the prior echo exam, there has been no change in TR severity. Pulmonic Valve: The pulmonic valve is not well seen, but is grossly normal. There is mild pulmonic regurgitation. Great Vessels: The aortic root is mildly dilated. The ascending aorta is mild-moderately enlarged. The IVC is of normal diameter and collapses greater than 50% with a sniff. This suggests a low right atrial pressure of 3 mm Hg. Pericardium/ Pleura There is no pericardial effusion. There is no pleural effusion. MMode/2D Measurements & Calculations LVIDd: 4.6 cm LVOT diam: 2.2 cm LVIDs: 3.2 cm Ao root diam: 4.1 cm FS: 31.6 % asc Aorta Diam: 4.2 cm IVSd: 0.77 cm LVPWd: 1.2 cm LV waller. diameter/BSA (cm/m^2): 2.1 LV sys. diameter/BSA (cm/m^2): 1.5 LA A2 area: 27.0 cm2 RA long axis: 6.4 cm LA A4 area: 25.6 cm2 RA area: 23.3 cm2 LA length (vol): 6.7 cm RA vol: 72.3 ml LA vol: 87.1 ml RA : 33.4 ml/m2 LA vol index: 40.3 ml/m2 IVC diam: 2.0 cm RVD1 (basal): 4.1 cm TAPSE: 1.7 cm Doppler Measurements & Calculations Ao V2 max: 102.9 cm/sec LVOT Max Eduardo: 73.5 cm/sec Ao V2 mean: 79.0 cm/sec LV V1 max P.2 mmHg Ao max P.2 mmHg LV V1 VTI: 14.6 cm Ao mean P.7 mmHg VIKI(I,D): 2.6 cm2 Ao V2 VTI: 22.0 cm VIKI(V,D): 2.8 cm2 sev ratio: 0.66 VIKI indexed to BSA (cm^2/m^2): 1.2 MV E max eduardo: 86.4 cm/sec TR max eduardo: 265.0 cm/sec MV A max eduardo: 1.4 cm/sec TR max P.1 mmHg MV E/A: 59.9 PA V2 max: 84.8 cm/sec Med Peak E' Eduardo: 9.9 cm/sec PA V2 mean: 51.0 cm/sec E/E' med: 8.7 PA mean P.2 mmHg Lat Peak E' Eduardo: 11.2 cm/sec PA pr(Accel): 39.6 mmHg E/E' lat: 7.7 E/e' average: 8.2 MV dec time: 0.20 sec SV(LVOT): 57.2 ml Reading Physician:10:43 AM
== END ==
PROVIDERS: PCP Family Medicine; Referring Provider Nurse Practitioner Acute Care; Visit Provider Nurse Practitioner Acute Care
DX: I08.1 Rheumatic disorders of both mitral and tricuspid valves (principal); I77.810 Thoracic aortic ectasia; I77.89 Other specified disorders of arteries and arterioles; Z95.0 Presence of cardiac pacemaker
CPT/HCPCS: 93306

== ENCOUNTER → 2021-08-27 10:10 | Outpatient (CLI) | payer MEDICARE, OTHER, SELFPAY ==
--- NOTE | 2021-08-27 | DI.RAD.S_ITS ---
PROCEDURE: XR CHEST 2V INDICATIONS: Dyspnea TECHNIQUE: 2 views of the chest were acquired. COMPARISON: [facility], CR, XR CHEST 2VW, 05/28/2016, 6:45. FINDINGS: Surgical changes and devices: There is a cardiac pacemaker with leads in appropriate position. Lungs and pleura: Mild chronic interstitial prominence. Lungs are otherwise clear. No pleural effusions or pneumothorax. Mediastinum: Mediastinal contours are normal. Heart size is normal. Bones and chest wall: No suspicious bony abnormalities. Soft tissues appear unremarkable. IMPRESSION: Mild chronic interstitial prominence. No acute abnormalities. Dictated by: Brian Grey M.D. on 08/27/2021 at 13:39 Approved by: Brian Grey M.D. on 08/27/2021 at 13:41
== END ==
PROVIDERS: PCP Family Medicine; Referring Provider Family Medicine; Visit Provider Family Medicine
DX: R06.09 Other forms of dyspnea (principal); Z95.0 Presence of cardiac pacemaker
CPT/HCPCS: 71046

== ENCOUNTER → 2021-09-02 12:18 | Outpatient (CLI) | payer MEDICARE, OTHER, SELFPAY ==
[2021-09-02 13:11] LABS: Appearance Urine UA CLOUDY; Bilirubin Urine UA NEGATIVE (NEGATIVE); Color Urine UA YELLOW; Glucose Urine UA 2+ g/dL (Negative); Ketones Urine UA NEGATIVE (NEGATIVE); Leukocyte Esterase Urine UA 2+ (NEGATIVE); Nitrite Urine UA NEGATIVE (Negative); Occult Blood Urine UA 1+ (Negative); Protein Urine UA TRACE (Negative); Urobilinogen Urine UA 0.2 E.U./dL (0.2)
[2021-09-02 13:17] LABS: RBC Urine 10-30/HPF (0-5/HPF); WBC Urine >100/HPF (0-5/HPF)
[2021-09-02 13:18] LABS: Bacteria Urine None Seen
[2021-09-05 14:30] LABS: Culture Indicated Urine Specimen Cultured
== END ==
PROVIDERS: PCP Family Medicine; Referring Provider Specialist; Visit Provider Specialist
DX: R30.0 Dysuria (principal)
CPT/HCPCS: 81001

== ENCOUNTER → 2021-09-05 15:10 | Outpatient (CLI) | payer MEDICARE, OTHER, SELFPAY ==
[2021-09-05 19:14] LABS: Appearance Urine UA CLOUDY; Bilirubin Urine UA NEGATIVE (NEGATIVE); Color Urine UA YELLOW; Glucose Urine UA 2+ g/dL (Negative); Ketones Urine UA NEGATIVE (NEGATIVE); Leukocyte Esterase Urine UA 2+ (NEGATIVE); Nitrite Urine UA POSITIVE (Negative); Occult Blood Urine UA 1+ (Negative); Protein Urine UA 1+ (Negative); Urobilinogen Urine UA 0.2 E.U./dL (0.2); pH Urine UA 8.5 (4.5-8.0)
[2021-09-05 19:32] LABS: Bacteria Urine Many (>30); Culture Indicated Urine Specimen Cultured; RBC Urine 1-5/HPF (0-5/HPF); Squamous Epithelial Cell Urine None Seen (0-5/HPF); WBC Urine >100/HPF (0-5/HPF)
== END ==
PROVIDERS: PCP Family Medicine; Referring Provider Specialist; Visit Provider Specialist
DX: R30.0 Dysuria (principal)
CPT/HCPCS: 81001; 87077; 87086; 87186

== ENCOUNTER → 2022-01-09 11:45 | Outpatient (CLI) | payer MEDICARE, OTHER, SELFPAY ==
[2022-01-09 13:18] LABS: Appearance Urine UA SL CLOUDY; Bilirubin Urine UA NEGATIVE (NEGATIVE); Color Urine UA YELLOW; Glucose Urine UA 3+ g/dL (Negative); Ketones Urine UA NEGATIVE (NEGATIVE); Leukocyte Esterase Urine UA 2+ (NEGATIVE); Nitrite Urine UA NEGATIVE (Negative); Occult Blood Urine UA 1+ (Negative); Protein Urine UA NEGATIVE (Negative); Specific Gravity Urine UA <=1.005 (1.000-1.035); Urobilinogen Urine UA 0.2 E.U./dL (0.2); pH Urine UA 5.5 (4.5-8.0)
[2022-01-09 13:32] LABS: Bacteria Urine Many (>30); Culture Indicated Urine Specimen Cultured; RBC Urine 1-5/HPF (0-5/HPF); WBC Urine >100/HPF (0-5/HPF)
== END ==
PROVIDERS: PCP Family Medicine; Referring Provider Specialist; Visit Provider Specialist
DX: N32.0 Bladder-neck obstruction (principal); R33.9 Retention of urine, unspecified; R39.9 Unspecified symptoms and signs involving the genitourinary system
CPT/HCPCS: 81001; 87077; 87086; 87186

== ENCOUNTER → 2022-01-14 09:58 | Outpatient (CLI) | payer MEDICARE, OTHER, SELFPAY ==
[2022-01-14 12:20] LABS: COVID19 -Nasal RAPID Negative (Negative)
== END ==
PROVIDERS: PCP Family Medicine; Visit Provider Physical Medicine & Rehabilitation
DX: Z20.822 Contact with and (suspected) exposure to COVID-19 (principal)
CPT/HCPCS: 87635; C9803

== ENCOUNTER 2022-01-16 08:11 | Outpatient (CLI) | payer MEDICARE, OTHER, SELFPAY ==
--- NOTE | 2022-01-16 08:15 | DI.RAD.S_ITS ---
PROCEDURE: PAIN L/S TRANSFORAM INJECT GENNA COMPARISON: [facility], , PAIN L/S TRANSFORAM INJECT GENNA, 02/26/2021, 13:56. INDICATIONS: SPONDYLOSIS FINDINGS: Fluoroscopic spot filming was performed to verify placement of spinal needles on both sides at the L4-L5 level, as labeled on the films. Appropriate location of the needle tips was confirmed by injection of iodinated contrast. IMPRESSION: Intraprocedural examination demonstrating appropriate positions of the needles. Dictated by: Dylan Joy M.D. on 01/16/2022 at 8:56 Approved by: Dylan Joy M.D. on 01/16/2022 at 8:56
[2022-01-16 08:25] VITALS: BP 113/74; PULSE 70; RESP 16; TEMP 36.4; O2SAT 99
[2022-01-16] MEDS: MIDAZOLAM 2 MG/2 ML VIAL IV (09:05)
[2022-01-16] MEDS: IOPAMIDOL 15 ML VIAL 3 ML INJ (09:07)
[2022-01-16] MEDS: DEXAMETHASONE 10 MG/ML VIAL 20 MG INJ (09:08)
[2022-01-16] MEDS: BETAMETHASONE 30 MG/5 ML MDV 12 MG INJ (09:08)
[2022-01-16] MEDS: BUPIVACAINE 0.25% (PF) VIAL 2 ML INJ (09:08)
[2022-01-16 09:10] VITALS: BP 118/71; PULSE 69; RESP 12; O2SAT 97
[2022-01-16 09:15] VITALS: BP 108/66; PULSE 69; RESP 12; O2SAT 97
--- NOTE | 2022-01-16 09:21 | PM.PROC.IR.1 ---
Date/Time/Diagnoses Date of procedure: 01/16/22 Time of procedure: : Pre-procedure diagnosis: 1. FORAMINAL STENOSIS WITH LE SYMPTOMS Procedure Notes Procedure: 1. FLUOROSCOPICALLY GUIDED CONTRAST CONTROLLED TRANSFORAMINAL EPIDURAL STEROID INJECTION - BILATERAL L4/5 TFESI Indications: David Gonzalez is referred by Dr. Palma for treatment of Foraminal Stenosis with bilateral LE Symptoms Physician: Logan Mcintosh Total Fluoroscopy time (seconds): 18 Total sedation minutes: 12 Complications: none Procedure in detail & Post-procedure care: FINDINGS Foraminal Nerve Root Compression secondary to disc disease and facet hypertrophy DESCRIPTION OF PROCEDURE Following review of allergy and review of potential side effects and complications, including, but not necessarily limited to, infection, allergic reaction, local tissue breakdown, stroke, temporary or permanent nerve injury, paralysis, and possible , the patient indicated that the patient understood and agreed to proceed. An informed consent document was signed by the patient, witnessed by a nurse, and placed in the patient's chart. Additionally, other treatment options including medications, modalities, and physical therapy were reviewed with the patient. After review of previous anaesthesic history and IV conscious sedation the patient was deemed safe to proceed with today?s procedure with IV conscious sedation as ASA class II designation. Safety time-out was performed to confirm patient ID, procedure to be performed and site of procedure. IV sedation was accomplished with a combination of 2mg of Versed was administered by the RN after DO order, titrated to patient comfort during the course of the procedure while the patient remained responsive to all verbal commands In the prone position following sterile prep and drape of the lumbar region, the right L4/5 posterior neuroforamen was identified fluoroscopically. The skin was anesthetized via a 25-gauge 1.5-inch needle with 1% lidocaine solution. At this point, a 25-gauge 3.5-inch spinal needle was atraumatically introduced and advanced under fluoroscopic guidance through the posterior right L4/5 neuroforamen to approximately the anterior aspect of the canal. Depth was confirmed on lateral view. Following negative aspiration, injection of approximately 1.5cc of Isovue 200 under live fluoroscopy in the AP view confirmed excellent flow along the nerve root, into the epidural space without vascular or intrathecal uptake observed Radiological data, including multiple fluoroscopic views of the lumbosacral spine, reveal a spinal needle at the right L4/5 posterior neuroforamen. Subsequent views show flow of contrast material flowing superiorly and inferiorly along the nerve root confirming epidural flow. Subsequently, a test dose of 1.5cc of 1% lidocaine solution was administered and patient was observed for two minutes for signs or symptoms of complications, including abdominal pain, shortness of breath, bilateral upper or lower extremity weakness, nausea and vomiting, prior to steroid injection. At this point, a total of 3cc or 20mg of dexamethasone and 6mg betamethasone was injected without incident. Attention was then refocused to the left L4/5 level where the identical procedure was replicated. The procedure tolerated the procedure well without signs or symptoms of complications prior to transfer to the recovery area continued monitoring without incident. The patient was then transferred to the recovery area where they were observed for an appropriate time after the injection. The patient reported a VAS score of 7 prior to the procedure and a post-procedure VAS of 0. POST OP INSTRUCTIONS The patient was provided a Pain Log to continue to record their response to the target-specific procedure prior to follow-up visit with their referring physician. Additionally, specific post-injection care instructions and a contact number to our office were provided if concerns arise regarding possible complications associated with the procedure are suspected.
[2022-01-16 09:25] VITALS: BP 96/56; PULSE 70; RESP 18; O2SAT 98
[2022-01-16 09:30] VITALS: BP 95/54; PULSE 69; RESP 16; O2SAT 98
[2022-01-16 09:35] VITALS: BP 95/54; PULSE 69; RESP 15; O2SAT 98
== END 2022-01-16 09:39 | disposition hospice, home (50) ==
LOC: RAD 08:13
PROVIDERS: PCP Family Medicine; Referring Provider Physical Medicine & Rehabilitation; Visit Provider Physical Medicine & Rehabilitation
DX: M48.061 Spinal stenosis, lumbar region without neurogenic claudication (principal); M51.16 Intervertebral disc disorders with radiculopathy, lumbar region
CPT/HCPCS: 64483; 99152; J0702; J1100; J2250; J3490

== ENCOUNTER 2022-04-22 13:55 | Outpatient (CLI) | payer MEDICARE, OTHER, SELFPAY ==
[2022-04-22] VITALS (7 sets, daily range): BP systolic 100–122; BP diastolic 57–78; PULSE 69–70; RESP 12–20; TEMP 36.1; O2SAT 93–99
--- NOTE | 2022-04-22 13:56 | DI.RAD.S_ITS ---
PROCEDURE: PAIN L INTERLAMINAR/CAUDAL INJ INDICATIONS: SPONDYLOSIS COMPARISON: [facility], XA, PAIN L INTERLAMINAR/CAUDAL INJ, 12/27/2020, 15:33. FINDINGS: Fluoroscopic spot filming was performed to verify placement of spinal needles at the left L4-L5 interlaminar space level(s), as labeled on the films. Appropriate location(s) of the needle tip(s) was confirmed by injection of iodinated contrast. IMPRESSION: Access needle in the left L4-L5 interlaminar space for translaminar epidural steroid injection. Dictated by: Melody Jeffrey MD, PhD on 04/22/2022 at 15:38 Approved by: Melody Jeffrey MD, PhD on 04/22/2022 at 15:39
[2022-04-22] MEDS: MIDAZOLAM 2 MG/2 ML VIAL IV (15:00)
[2022-04-22] MEDS: DEXAMETHASONE 10 MG/ML VIAL 20 MG INJ (15:00)
[2022-04-22] MEDS: BETAMETHASONE 30 MG/5 ML MDV 6 MG INJ (15:03)
[2022-04-22] MEDS: BUPIVACAINE 0.25% (PF) VIAL 2 ML INJ (15:04)
[2022-04-22] MEDS: IOPAMIDOL 15 ML VIAL 3 ML INJ (15:04)
--- NOTE | 2022-04-22 15:20 | P.PCN_ITS ---
Date/Time/Diagnoses Date of procedure: 04/22/22 Time of procedure: 15:22 Pre-procedure diagnosis: 1. HNP WITH RADICULAR FEATURES, 2. MULTILEVEL CENTRAL STENOSIS, Post-procedure diagnosis: same Procedure Notes Procedure: 1. FLUOROSCOPICALLY GUIDED CONTRAST CONTROLLED INTERLAMINAR EPIDURAL STEROID INJECTION -L4/5 Indications: David Gonzalez is referred by Dr. Palma for treatment of Bilateral Foraminal Stenosis R>L LE symptoms. Physician: Logan Mcintosh Total Fluoroscopy time (seconds): 12 Total sedation minutes: 13 Complications: none Procedure in detail & Post-procedure care: FINDINGS Multilevel Central Spinal Stenosis with Nerve Root Compression DESCRIPTION OF PROCEDURE Fluoroscopically guided, contrast-controlled L4/5 translaminar epidural steroid injection. Following review of allergy and review of potential side effects and complications, including, but not necessarily limited to, infection, allergic reaction, local tissue breakdown, temporary as well as permanent nerve injury, paralysis, stroke and possible , the patient indicated that the patient understood and agreed to proceed. An informed consent document was signed by the patient, witnessed by a nurse, and placed in the patient's chart. Additionally, other treatment options including modalities, medications, and physical therapy were reviewed with the patient. After review of previous anaesthesic history and IV conscious sedation the patient was deemed safe to proceed with today?s procedure with IV conscious sedation as ASA class II designation. Safety time-out was performed to confirm patient ID, procedure to be performed and site of procedure. IV sedation was accomplished with a combination of 2mg of Versed was administered by the RN after DO order, titrated to patient comfort during the course of the procedure while the patient remained responsive to all verbal commands In the prone position, following sterile prep and drape of the lumbar region, the L4/5 translaminar space was identified fluoroscopically. The skin was anesthetized via a 25-gauge, 1.5inch needle with 1% lidocaine solution. At this point, a 22-gauge short bevel spinal needle was atraumatically introduced and advanced under fluoroscopic guidance into the region of the L4/5 translaminar space. Depth was confirmed on lateral view. Radiological data, including multiple fluoroscopic views of the lumbar spine, reveal a spinal needle at the L4/5 translaminar space. Lateral views then show placement of the needle in the epidural space. Subsequent views show contrast material flowing superiorly and inferiorly in the epidural space. No vascular or intrathecal uptake is observed. At this point, using loss of resistance technique with saline and air, the epidural space was entered. This was confirmed following negative aspiration with injection of approximately 1.5cc of Isovue 200, showing excellent epidural flow without vascular or intrathecal uptake. At this point, 1cc of 1% lidocaine solution combined with 3cc or 20mg of dexamethasone and 6mg betamethasone was injected without incident. The patient tolerated the procedure well without signs or symptoms of complications prior to transfer to the recovery area continued monitoring without incident. The patient was then transferred to the recovery area where they were observed for an appropriate period of time after the injection. The patient reported a VAS score of 6 prior to the procedure and a post- procedure VAS of 0. POST OP INSTRUCTIONS The patient was provided a Pain Log to continue to record their response to the target-specific procedure prior to follow-up visit with their referring physician. Additionally, specific post-injection care instructions and a contact number to our office were provided if concerns arise regarding possible complications associated with the procedure are suspected.
== END 2022-04-22 15:39 | disposition home or self-care (01) ==
PROVIDERS: PCP Family Medicine; Referring Provider Physical Medicine & Rehabilitation; Visit Provider Physical Medicine & Rehabilitation
DX: M51.16 Intervertebral disc disorders with radiculopathy, lumbar region (principal); M48.061 Spinal stenosis, lumbar region without neurogenic claudication
CPT/HCPCS: 62323; 99152; J0702; J1100; J2250; J3490

== ENCOUNTER → 2022-05-13 10:48 | Outpatient (CLI) | payer MEDICARE, OTHER, SELFPAY ==
--- NOTE | 2022-05-13 10:49 | DI.RAD.S_ITS ---
PROCEDURE: XR HIP W PEL IF DONE GENNA MIN 4V INDICATIONS: Left Hip pain TECHNIQUE: AP pelvis with lateral view(s) of the bilateral hip(s). COMPARISON: [facility], , [id number] W PEL IF PERFORMED, 07/30/2017, 12:04. FINDINGS: Bones: No acute fracture or dislocation. Mild degenerative changes are present at the bilateral hip joints including osteophytosis and mild joint space narrowing. Findings have slightly increased when compared with the prior study dated July 30, 2017. Soft tissues: The visualized bowel gas pattern is normal. No suspicious soft tissue calcifications. 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 Dictated by: Stephanie Collado M.D. on 05/13/2022 at 11:45 Approved by: Stephanie Collado M.D. on 05/13/2022 at 11:46
== END ==
PROVIDERS: PCP Family Medicine; Referring Provider Physical Medicine & Rehabilitation; Visit Provider Physical Medicine & Rehabilitation
DX: M16.0 Bilateral primary osteoarthritis of hip (principal)
CPT/HCPCS: 73522

== ENCOUNTER → 2022-05-26 10:05 | Outpatient (CLI) | payer MEDICARE, OTHER, SELFPAY ==
[2022-05-26 12:09] LABS: C-Reactive Protein Quant < 0.5 mg/dL (<1.0)
[2022-05-26 12:17] LABS: Iron 100 ug/dL (49-181)
[2022-05-26 12:26] LABS: Total Iron Binding Capacity 440 ug/dL (261-462)
[2022-05-26 12:39] LABS: Ferritin 13 ng/mL (18-464)
== END ==
PROVIDERS: PCP Family Medicine; Referring Provider Internal Medicine Sleep Medicine; Visit Provider Internal Medicine Sleep Medicine
DX: E83.10 Disorder of iron metabolism, unspecified (principal); G47.61 Periodic limb movement disorder; G47.10 Hypersomnia, unspecified
CPT/HCPCS: 36415; 82728; 83540; 83550; 86140

== ENCOUNTER → 2022-06-09 07:28 | Outpatient (CLI) | payer MEDICARE, OTHER, SELFPAY ==
[2022-06-09 08:22] LABS: Add Manual Diff / Slide Review NO; Basophils Absolute Auto 0 /uL (0-100); Basophils Percent Auto 0.5 % (0-2); Eosinophils Absolute Auto 200 /uL (0-450); Eosinophils Percent Auto 3.3 % (2-4); Hematocrit 40.2 % (41-53); Hemoglobin 13.4 g/dL (13.5-17.5); Lymphocytes Absolute Auto 1300 /uL (1100-4500); Lymphocytes Percent Auto 26.1 % (25-40); Mean Corpuscular HGB Conc 33.3 % (30-36); Mean Corpuscular Hemoglobin 32.5 PG (26-34); Mean Corpuscular Volume 97.7 fL (80-100); Monocytes Absolute Auto 500 /uL (0-900); Monocytes Percent Auto 9.9 % (3-14); Neutrophils Absolute Auto 3100 /uL (1500-7000); Neutrophils Percent Auto 60.2 % (50-75); Platelet Count 158 X10^3/uL (150-400); Red Blood Cell Count 4.11 X10^6/uL (4.5-5.9); Red Cell Distribution Width 15.8 % (11.6-14.8); White Blood Cell Count 5.1 X10^3/uL (4.5-11.0)
[2022-06-09 08:50] LABS: Alanine Aminotransferase 32 IU/L (<50); Albumin Globulin Ratio 1.4 (1.0-2.8); Alkaline Phosphatase 114 U/L (38-126); Aspartate Aminotransferase 27 IU/L (17-59); BUN Creatinine Ratio 29.7 (6-22); Bilirubin Total 1.1 mg/dL (0.2-1.3); Blood Urea Nitrogen 27 mg/dL (9-20); Calcium 9.8 mg/dL (8.4-10.2); Carbon Dioxide 29 mmol/L (22-32); Chloride 102 mmol/L (98-107); Estimated Glomerular Filt Rate > 60 mL/min (>60); Globulin 2.8 g/dL (1.7-4.1); Glucose 170 mg/dL (80-110); HEMOLYSIS 18 (0-50); Potassium 4.9 mmol/L (3.4-5.1); Sodium 138 mmol/L (137-145); Total Protein 6.8 g/dL (6.3-8.2)
[2022-06-09 09:12] LABS: Free T4, Direct Thyroxine 0.96 ng/dL (0.78-2.19)
[2022-06-09 09:26] LABS: Thyroid Stimulating Hormone 1.66 uIU/mL (0.47-4.68)
== END ==
PROVIDERS: PCP Family Medicine; Referring Provider Nurse Practitioner; Visit Provider Nurse Practitioner
DX: I48.20 Chronic atrial fibrillation, unspecified (principal)
CPT/HCPCS: 36415; 80053; 84439; 84443; 85025

== ENCOUNTER 2022-06-10 13:48 | Outpatient (CLI) | payer MEDICARE, OTHER, SELFPAY ==
[2022-06-10] VITALS (9 sets, daily range): BP systolic 94–133; BP diastolic 45–83; PULSE 69–70; RESP 12–69; TEMP 35.9; O2SAT 96–99
--- NOTE | 2022-06-10 13:50 | DI.RAD.S_ITS ---
PROCEDURE: PAIN L/S TRANSFORAMINAL INJECT INDICATIONS: SPONDYLOSIS COMPARISON: [facility], XA, PAIN L/S TRANSFORAMINAL INJECT, 09/20/2020, 16:10. [facility], XA, PAIN L/S TRANSFORAM INJECT GENNA, 01/16/2022, 9:07. [facility], XA, PAIN L INTERLAMINAR/CAUDAL INJ, 04/22/2022, 16:04. FINDINGS: Fluoroscopic spot filming was performed to verify placement of a spinal needle at the L4-L5 level, as labeled on the films. Appropriate location of the needle tip was confirmed by injection of iodinated contrast. IMPRESSION: Intraprocedural examination within normal limits. Dictated by: Dylan Joy M.D. on 06/10/2022 at 14:30 Approved by: Dylan Joy M.D. on 06/10/2022 at 14:31
[2022-06-10] MEDS: MIDAZOLAM 2 MG/2 ML VIAL IV (14:28)
[2022-06-10] MEDS: BETAMETHASONE 30 MG/5 ML MDV 6 MG INJ (14:34)
[2022-06-10] MEDS: DEXAMETHASONE 10 MG/ML VIAL 20 MG INJ (14:34)
[2022-06-10] MEDS: IOPAMIDOL 15 ML VIAL 3 ML INJ (14:34)
--- NOTE | 2022-06-10 14:52 | P.PCN_ITS ---
Date/Time/Diagnoses Date of procedure: 06/10/22 Time of procedure: 14:52 Pre-procedure diagnosis: 1. FORAMINAL STENOSIS WITH LE SYMPTOMS Post-procedure diagnosis: same Procedure Notes Procedure: 1. FLUOROSCOPICALLY GUIDED CONTRAST CONTROLLED TRANSFORAMINAL EPIDURAL STEROID INJECTION - LEFT L4/5 Indications: David Gonzalez is referred by Dr. Palma for treatment of Foraminal Stenosis with Left LE Symptoms Physician: Logan Mcintosh Total Fluoroscopy time (seconds): 15 Total sedation minutes: 14 Complications: none Procedure in detail & Post-procedure care: FINDINGS Foraminal Nerve Root Compression secondary to disc disease and facet hypertrophy DESCRIPTION OF PROCEDURE Following review of allergy and review of potential side effects and complications, including, but not necessarily limited to, infection, allergic reaction, local tissue breakdown, stroke, temporary or permanent nerve injury, paralysis, and possible , the patient indicated that the patient understood and agreed to proceed. An informed consent document was signed by the patient, witnessed by a nurse, and placed in the patient's chart. Additionally, other treatment options including medications, modalities, and physical therapy were reviewed with the patient. After review of previous anaesthesic history and IV conscious sedation the patient was deemed safe to proceed with today?s procedure with IV conscious sedation as ASA class II designation. Safety time-out was performed to confirm patient ID, procedure to be performed and site of procedure. IV sedation was accomplished with a combination of 2mg of Versed administered by the RN after DO order, titrated to patient comfort during the course of the procedure while the patient remained responsive to all verbal commands In the prone position following sterile prep and drape of the lumbar region, the left L4/5 posterior neuroforamen was identified fluoroscopically. The skin was anesthetized via a 25-gauge 1.5-inch needle with 1% lidocaine solution. At this point, a 25-gauge 3.5-inch spinal needle was atraumatically introduced and advanced under fluoroscopic guidance through the posterior left L4/5 neuroforamen to approximately the anterior aspect of the canal. Depth was confirmed on lateral view. Following negative aspiration, injection of approximately 1.5 cc of Isovue 200 under live fluoroscopy in the AP view confirmed excellent flow along the nerve root, into the epidural space without vascular or intrathecal uptake observed Radiological data, including multiple fluoroscopic views of the lumbosacral spine, reveal a spinal needle at the left L4/5 posterior neuroforamen. Subsequent views show flow of contrast material flowing superiorly and inferiorly along the nerve root confirming epidural flow. Subsequently, a test dose of 1.5 cc of 1% lidocaine solution was administered and patient was observed for two minutes for signs or symptoms of complications, including abdominal pain, shortness of breath, bilateral upper or lower extremity weakness, nausea and vomiting, prior to steroid injection. At this point, a total of 3cc or 20mg of dexamethasone and 6mg of betamethasone was injected without incident. The procedure tolerated the procedure well without signs or symptoms of complications prior to transfer to the recovery area continued monitoring without incident. The patient was then transferred to the recovery area where they were observed for an appropriate time after the injection. The patient reported a VAS score of 7 prior to the procedure and a post- procedure VAS of 0. POST OP INSTRUCTIONS The patient was provided a Pain Log to continue to record their response to the target-specific procedure prior to follow-up visit with their referring physician. Additionally, specific post-injection care instructions and a contact number to our office were provided if concerns arise regarding possible complications associated with the procedure are suspected.
== END 2022-06-10 15:10 | disposition home or self-care (01) ==
LOC: RAD 13:49
PROVIDERS: PCP Family Medicine; Referring Provider Physical Medicine & Rehabilitation; Visit Provider Physical Medicine & Rehabilitation
DX: M48.061 Spinal stenosis, lumbar region without neurogenic claudication (principal); M51.16 Intervertebral disc disorders with radiculopathy, lumbar region
CPT/HCPCS: 64483; 99152; J0702; J1100; J2250; J3490

== ENCOUNTER → 2022-08-08 10:48 | Outpatient (CLI) | payer MEDICARE, OTHER, SELFPAY ==
--- NOTE | 2022-08-08 10:49 | DI.CT.S_ITS ---
PROCEDURE: CT LUMBAR SPINE WO CON INDICATIONS: Progressive spinal stenosis TECHNIQUE: Noncontrast 3 mm thick sections acquired from the T12 level to the sacrum. Sagittal and coronal reformats were constructed. For radiation dose reduction, the following was used: automated exposure control. COMPARISON: [facility], CT, CT LUMBAR SPINE WO CON, 08/13/2020, 13:42. [facility], CT, CT LUMBAR SPINE WO CON, 11/23/2017, 10:58. FINDINGS: Image quality: Excellent. Bones: Partial sacralization of L5 again noted. There is 1-2 mm grade 1 retrolisthesis at T12-L1, L1-2, and L2-3. Mild 4 mm grade 1 anterolisthesis at L4-5. No acute vertebral body compression fractures. No suspicious lytic or blastic bony lesions. No pars defects. T12-L1: Mild grade 1 retrolisthesis and mild circumferential disc bulging resulting in mild spinal canal narrowing and moderate narrowing of the bilateral neural foramina that does not appear significantly changed when compared to the CT from 08/13/2020. L1-L2: Mild circumferential disc bulging resulting and mild narrowing of the spinal canal and moderate bilateral neural foraminal narrowing that does not appear significantly changed. L2-L3: Circumferential disc bulging as well as mild bilateral facet hypertrophy and buckling of the ligamentum flavum, resulting in moderate to severe narrowing of the central spinal canal as well as severe left and moderate to severe right neural foraminal narrowing, mildly progressed when compared to the prior CT. L3-L4: Vacuum disc phenomenon and mild circumferential disc bulging as well as moderate bilateral facet hypertrophy and buckling of the ligamentum flavum, which result in moderate to severe narrowing of the spinal canal as well as moderate to severe bilateral neural foraminal narrowing that appears similar when compared to the prior CT. L4-L5: Grade 1 anterolisthesis of L4 on L5 with uncovering of the disc space and mild circumferential disc bulging and moderate to severe bilateral facet hypertrophy. There is severe narrowing of the spinal canal as well as moderate to severe bilateral neural foraminal narrowing. Findings have mildly progressed when compared to the exam from 2020. L5-S1: Mild circumferential disc bulging and mild bilateral facet hypertrophy, which do not result in significant spinal canal stenosis or neural foraminal narrowing. Soft tissues: No retroperitoneal masses or hematomas. Atherosclerotic calcifications are seen in the aorta. IMPRESSION: 1. 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 Findings have mildly progressed when compared to the prior CT from 08/13/2020. 2. At L4-5, grade 1 anterolisthesis and superimposed degenerative changes result in severe narrowing of the spinal canal and moderate to severe bilateral neural foraminal narrowing. 3. Moderate to severe spinal canal stenosis as well as moderate to severe bilateral neural foraminal narrowing are seen at the L2-3 and L3-4 levels. Approved by: Josh Dupont M.D. on 08/08/2022 at 14:00
== END ==
PROVIDERS: PCP Family Medicine; Referring Provider Physical Medicine & Rehabilitation; Visit Provider Physical Medicine & Rehabilitation
DX: N31.9 Neuromuscular dysfunction of bladder, unspecified (principal); N31.2 Flaccid neuropathic bladder, not elsewhere classified; M43.16 Spondylolisthesis, lumbar region; I48.20 Chronic atrial fibrillation, unspecified; M51.36 Other intervertebral disc degeneration, lumbar region; M48.061 Spinal stenosis, lumbar region without neurogenic claudication
CPT/HCPCS: 72131

== ENCOUNTER → 2022-08-28 13:36 | Outpatient (CLI) | payer MEDICARE, OTHER, SELFPAY ==
[2022-08-28 14:30] LABS: Appearance Urine UA CLOUDY; Bilirubin Urine UA NEGATIVE (NEGATIVE); Color Urine UA YELLOW; Glucose Urine UA 3+ g/dL (Negative); Ketones Urine UA NEGATIVE (NEGATIVE); Leukocyte Esterase Urine UA 2+ (NEGATIVE); Nitrite Urine UA NEGATIVE (Negative); Occult Blood Urine UA 3+ (Negative); Protein Urine UA 1+ (Negative); Urobilinogen Urine UA 0.2 E.U./dL (0.2)
[2022-08-28 14:33] LABS: Bacteria Urine None Seen; Culture Indicated Urine Specimen Cultured; RBC Urine >100/HPF (0-5/HPF); Squamous Epithelial Cell Urine 1-5 /HPF (0-5/HPF); WBC Urine >100/HPF (0-5/HPF)
== END ==
PROVIDERS: PCP Family Medicine; Referring Provider Specialist; Visit Provider Specialist
DX: N31.9 Neuromuscular dysfunction of bladder, unspecified (principal); R39.9 Unspecified symptoms and signs involving the genitourinary system; R33.9 Retention of urine, unspecified
CPT/HCPCS: 81001; 87077; 87086; 87186

== ENCOUNTER 2022-09-13 16:42 | Emergency (ER) | payer MEDICARE, OTHER, SELFPAY ==
[2022-09-13 16:48] VITALS: BP 134/70; PULSE 70; RESP 18; TEMP 36.6; O2SAT 98; BMI 29.7
--- NOTE | 2022-09-13 16:51 | DI.CT.S_ITS ---
PROCEDURE: CT HEAD/BRAIN WO CON INDICATIONS: fall on thinners TECHNIQUE: Noncontrast 4.5 mm thick angled axial sections acquired from the foramen magnum to the vertex, with coronal and sagittal reformats. For radiation dose reduction, the following was used: automated exposure control, adjustment of mA and/or kV according to patient size. COMPARISON: [facility], CT, HEAD WITHOUT CONTRAST, 09/13/2017, 13:08. FINDINGS: Image quality: Excellent. CSF spaces: Basal cisterns are patent. No extra-axial fluid collections. The ventricles are symmetric in size and shape. Brain: No intracranial bleeds or masses. There is cerebral volume loss for age, with resultant ventricular and sulcal prominence. There are periventricular and deep white matter chronic small vessel ischemic changes. There is intracranial internal carotid artery atherosclerosis. Skull and face: Soft tissue swelling is seen across the bridge of the nose and within the central forehead, with scalp hematoma. Calvarium and visualized facial bones appear intact, without suspicious lesions. Sinuses: Visualized sinuses and mastoids are clear. IMPRESSION: Soft tissue hematoma involving the bridge of the nose and the central forehead, yet without a displaced fracture identified. No acute intracranial hemorrhage is seen. No acute intracranial process is seen. Dictated by: Dylan Joy M.D. on 09/13/2022 at 16:19 Approved by: Dylan Joy M.D. on 09/13/2022 at 16:21
--- NOTE | 2022-09-13 17:15 | ED_ITS ---
HPI - Fall General Chief Complaint: Fall Stated Complaint: GLF trip/ slip Time Seen by Provider: 09/13/22 16:51 Source: patient Mode of arrival: EMS Limitations: no limitations History of Present Illness HPI Narrative: Patient is an 82-year-old male. Is on anticoagulation. His brought in by EMS for evaluation of injuries that he sustained when he states that he was out in his yard. States he tripped and fell forward hitting his head on the ground. He would no loss of consciousness. He is no neck pain. No extremity discomfort. Arrived not on a backboard not in a cervical collar. Does have abrasions to his head. Related Data Home Medications Medication Instructions Recorded Confirmed apixaban 5 mg tablet (Eliquis) 5 mg PO BID 01/10/19 09/05/22 atorvastatin 40 mg tablet 40 mg PO QPM 01/10/19 09/05/22 cholecalciferol (vitamin D3) 25 1,000 unit PO DAILY 01/10/19 09/05/22 mcg (1,000 unit) capsule ipratropium bromide 42 mcg (0.06 2 spray intranasal TID 01/10/19 09/05/22 %) nasal spray loratadine 10 mg tablet 10 mg PO DAILY 01/10/19 09/05/22 metformin 500 mg tablet 500 - 1,000 mg PO BID 01/10/19 09/05/22 metoprolol succinate 25 mg 25 mg PO DAILY 01/10/19 09/05/22 tablet,extended release 24 hr multivitamin (Multiple Vitamins 1 tab PO DAILY 01/10/19 09/05/22 tablet) omeprazole 20 mg capsule,delayed 20 mg PO DAILY 01/10/19 09/05/22 release acetaminophen 500 mg tablet 1,000 mg PO Q6H PRN Pain 08/06/20 09/05/22 (Tylenol Extra Strength) coenzyme Q10 75 mg capsule (Ultra 300 mg PO DAILY 08/06/20 09/05/22 CoQ10) magnesium 200 mg tablet 400 mg PO DAILY 08/06/20 09/05/22 mecobalamin (vitamin B12) 1,000 1,000 mcg sublingual DAILY 08/06/20 09/05/22 mcg disintegrating tablet,sublingual lactobacillus combination no.8 3 3,000 mmu cells PO DAILY 09/03/20 09/05/22 billion cell capsule (Adult Probiotic) lisinopril 2.5 mg tablet 2.5 mg PO DAILY 02/13/21 09/05/22 Respironics DreamStation BiPAP 06/13/21 09/05/22 blood sugar diagnostic (OneTouch #10 ea 12/23/21 09/05/22 Verio test strips) empagliflozin 25 mg tablet 25 mg PO DAILY 09/05/22 09/05/22 (Jardiance) Previous Rx's Medication Instructions Recorded vibegron 75 mg tablet (Gemtesa) 75 mg PO DAILY #90 tabs 12/18/21 tramadol 50 mg tablet 50 mg PO BID PRN pain #42 tabs 04/16/22 gabapentin 600 mg tablet 600 mg PO TID #270 tabs 08/25/22 Allergies Allergy/AdvReac Type Severity Reaction Status Date / Time latex Allergy Intermediate ITCHING Verified 09/05/22 14:30 Review of Systems Constitutional Constitutional: Reports system reviewed and no additional complaints, except as documented ENT Ears, Nose, Mouth, and Throat: Reports system reviewed and no additional complaints, except as documented Cardiovascular Cardiovascular: Reports system reviewed and no additional complaints, except as documented Respiratory Respiratory: Reports system reviewed and no additional complaints, except as documented Gastrointestinal Gastrointestinal: Reports system reviewed and no additional complaints, except as documented Integumentary/Breasts Skin/Breast: Reports system reviewed and no additional complaints, except as documented Neurologic Neurologic: Reports system reviewed and no additional complaints, except as documented Hematologic/Lymphatic On Anticoagulants: No Patient History Medical History Asthma Atrial fibrillation Degenerative joint disease (DJD) of hip Diabetes Excessive daytime sleepiness Facet arthropathy, lumbar Fatigue Hypertension Lumbar radiculopathy Lumbar stenosis with neurogenic claudication Neurogenic bladder Neurogenic bladder, flaccid Obesity (BMI 30-39.9) Obstructive sleep apnea Pacemaker (05/27/16) Spondylolisthesis at L4-L5 level Urinary retention Surgical History History of cholecystectomy History of circumcision History of penile implant (03/21/18) History of transurethral resection of prostate History of vasectomy Hx of cystoscopy (10/31/20) Family History Mother Cancer Father Stroke Social History marital status: occupational status: previously employed Smoking Status: Former smoker Tobacco: How many years used: 35 alcohol intake: former caffeine: Yes Smoking Status: Former smoker Substance Use Type: does not use Exam Initial Vital Signs Initial Vital Signs: Vital Signs Temperature 97.8 F 09/13/22 16:48 Pulse Rate 70 09/13/22 16:48 Respiratory Rate 18 09/13/22 16:48 Blood Pressure 134/70 09/13/22 16:48 Pulse Oximetry 98 09/13/22 16:48 Oxygen Delivery Method Room Air 09/13/22 16:48 Const General: cooperative and comfortable HENMT Head: abrasion, contusion and No laceration Resp Effort & Inspection: normal respiratory effort Cardio Rate: regular rate Back/Spine/Pelvis Cervical Spine: No cervical spinal tenderness Skin Other: Abrasion to forehead and over bridge of nose and forehead. Has a skin tear to the right arm lateral to the elbow Neuro General: patient alert, patient awake and moves all extremities Extrem General: normal to inspection and capillary refill normal Other: Pelvis is stable. Bilateral movement of upper and lower extremities. Scores GCS Nikky coma scale eye opening: Spontaneous Nikky coma scale verbal response: Orientated Nikky coma scale motor response: Obey commands Nikky coma scale total score: 15 Nexus Score for C-Spine Focal Neurologic deficit present: No Midline spinal tenderness present: No Altered level of conciousness present: No Intoxication present: No Distracting Injury Present: No Nexus Criteria for C-spine: 0 Course Orders Ordered: ED Orders 09/13/22 16:51 CT head/brain wo con Stat Vital Signs Vital signs: Vital Signs - 8 hr 09/13/22 16:48 Temperature 97.8 F Pulse Rate 70 Respiratory Rate 18 Blood Pressure 134/70 Pulse Oximetry 98 Oxygen Delivery Method Room Air MDM - Fall Imaging Data CT scan - head: Radiologist's Impression: PROCEDURE:? CT HEAD/BRAIN WO CON ? INDICATIONS:? fall on thinners ? TECHNIQUE:? Noncontrast 4.5 mm thick angled axial sections acquired from the foramen magnum to the vertex, with coronal and sagittal reformats.? For radiation dose reduction, the following was used:? automated exposure control, adjustment of mA and/or kV according to patient size.? ? COMPARISON:? [facility], CT, HEAD WITHOUT CONTRAST, 09/13/2017, 13:08. ? FINDINGS:? Image quality:? Excellent.? ? CSF spaces:? Basal cisterns are patent.? No extra-axial fluid collections.? The ventricles are symmetric in size and shape.? ? Brain:? No intracranial bleeds or masses.? There is cerebral volume loss for age, with resultant ventricular and sulcal prominence.? There are periventricular and deep white matter chronic small vessel ischemic changes.? There is intracranial internal carotid artery atherosclerosis.? ? Skull and face:? Soft tissue swelling is seen across the bridge of the nose and within the central forehead, with scalp hematoma.? Calvarium and visualized facial bones appear intact, without suspicious lesions.? ? Sinuses:? Visualized sinuses and mastoids are clear.? ? ? IMPRESSION:? Soft tissue hematoma involving the bridge of the nose and the central forehead, yet without a displaced fracture identified. ? No acute intracranial hemorrhage is seen.? ? No acute intracranial process is seen.? MDM Narrative Medical decision making narrative: Patient is alert oriented x3. Cervical spine was cleared by nexus criteria. He is no extremity injuries. His pelvis is stable. His head CT is unremarkable. No signs of intracranial hemorrhage. He does have abrasions over his forehead and bridge of his nose and over his right forearm which knee no specific intervention here in the emergency department other than cleaning. I did discuss all this with him. We will hold on further workup. This does appear to be a mechanical fall. He was given return precautions. He expressed understanding and agreement with plan. Discharge Plan Departure Patient Disposition: Home Clinical Impression: Abrasion of forehead, Abrasion of arm, right Instructions: DI for Abrasion Activity Restrictions/Additional Instructions: You have no restrictions on your activities. Continue to take all of your medications as directed. You can put topical antibiotic ointment over the abrasions. You can shower like normal. Return to the emergency department for new or worsening symptoms. Prescriptions: No Action acetaminophen [Tylenol Extra Strength] 500 mg tablet 1,000 mg PO Q6H PRN (Reason: Pain) mecobalamin (vitamin B12) 1,000 mcg tablet,disintegrating 1,000 mcg sublingual DAILY Rx Instructions: place tablet under tongue and allow to dissolve for at least30 secs before swallowing Ultra CoQ10 75 mg capsule 300 mg PO DAILY magnesium 200 mg tablet 400 mg PO DAILY Gemtesa 75 mg tablet 75 mg PO DAILY Qty: 90 3RF tramadol 50 mg tablet 50 mg PO BID PRN (Reason: pain) Qty: 42 1RF gabapentin 600 mg tablet 600 mg PO TID Qty: 270 1RF Rx Instructions: TAKE 1 TAB TID IT CAN BE SEDATING USE WITH CAUTION Adult Probiotic 3 billion cell capsule 3,000 mmu cells PO DAILY Rx Instructions: administer with a meal (DME) OneTouch Verio test strips Strip See Rx Instructions .ROUTE .MEDSUPPLY Qty: 10 Patient Comments: FOR CHECKING BLOOD GLUCOSE LEVELS three times a day for diabetes Rx Instructions: As directed Jardiance 25 mg tablet 25 mg PO DAILY Patient Comments: TAKE 1 TABLET BY MOUTH ONCE A DAY multivitamin [Multiple Vitamins] tablet 1 tab PO DAILY atorvastatin 40 mg tablet 40 mg PO QPM metformin 500 mg tablet 500 - 1,000 mg PO BID Patient Comments: Two tabs in AM and One Tab PM omeprazole 20 mg capsule,delayed release(DR/EC) 20 mg PO DAILY metoprolol succinate 25 mg tablet extended release 24 hr 25 mg PO DAILY ipratropium bromide 42 mcg (0.06 %) spray,non-aerosol 2 spray NASAL TID loratadine 10 mg tablet 10 mg PO DAILY cholecalciferol (vitamin D3) 1,000 unit capsule 1,000 unit PO DAILY Eliquis 5 mg tablet 5 mg PO BID (DME) Respironics DreamStation BiPAP See Rx Instructions .Route .MEDSUPPLY Rx Instructions: IPAP: 16 EPAP: 5 MaxPS: 5 MinPS: 5 DME: [employer] lisinopril 2.5 mg tablet 2.5 mg PO DAILY Referrals: Logan Palma MD [Primary Care Provider] - Stand Alone Forms: Patient Portal/API
[2022-09-13 17:48] VITALS: BP 111/66; PULSE 70; RESP 20; O2SAT 95
== END 2022-09-13 17:50 | disposition home or self-care (01) ==
PROVIDERS: Emergency Provider Emergency Medicine; PCP Family Medicine
DX: S00.01XA Abrasion of scalp, initial encounter (principal); S40.811A Abrasion of right upper arm, initial encounter; W01.0XXA Fall on same level from slipping, tripping and stumbling without subsequent striking against object, initial encounter
CPT/HCPCS: 70450; 99284

== ENCOUNTER 2022-09-25 14:55 | Outpatient (CLI) | payer MEDICARE, OTHER, SELFPAY ==
[2022-09-25] VITALS (8 sets, daily range): BP systolic 93–154; BP diastolic 52–101; PULSE 69–70; RESP 11–22; TEMP 36.4; O2SAT 90–97
--- NOTE | 2022-09-25 14:57 | DI.RAD.S_ITS ---
PROCEDURE: PAIN L INTERLAMINAR/CAUDAL INJ INDICATIONS: SPONDYLOSIS COMPARISON: [facility], CT, CT LUMBAR SPINE WO CON, 08/08/2022, 11:31. [facility], XA, PAIN L/S TRANSFORAMINAL INJECT, 06/10/2022, 15:30. [facility], XA, PAIN L INTERLAMINAR/CAUDAL INJ, 04/22/2022, 16:04. FINDINGS: Fluoroscopic spot filming was performed to verify placement of a spinal needle at the L3-L4 level, as labeled on the films. Appropriate location of the needle tip was confirmed by injection of iodinated contrast. IMPRESSION: Intraprocedural examination within normal limits. Dictated by: Dylan Joy M.D. on 09/25/2022 at 15:44 Approved by: Dylan Joy M.D. on 09/25/2022 at 15:45
[2022-09-25] MEDS: MIDAZOLAM 2 MG/2 ML VIAL IV (15:48)
[2022-09-25] MEDS: BUPIVACAINE 0.25% (PF) VIAL 2 ML INJ (15:51)
[2022-09-25] MEDS: IOPAMIDOL 15 ML VIAL 3 ML INJ (15:51)
[2022-09-25] MEDS: BETAMETHASONE 30 MG/5 ML MDV 6 MG INJ (15:51)
[2022-09-25] MEDS: DEXAMETHASONE 10 MG/ML VIAL 20 MG INJ (15:51)
--- NOTE | 2022-09-25 15:56 | P.PCN_ITS ---
Date/Time/Diagnoses Date of procedure: 09/25/22 Time of procedure: 15:56 Pre-procedure diagnosis: 1. HNP WITH RADICULAR FEATURES, 2. MULTILEVEL CENTRAL STENOSIS, Post-procedure diagnosis: same Procedure Notes Procedure: 1. FLUOROSCOPICALLY GUIDED CONTRAST CONTROLLED INTERLAMINAR EPIDURAL STEROID INJECTION - L3/4 Indications: Carlos is referred by Dr. Palma for treatment of Bilateral Foraminal Stenosis L>R LE symptoms. Physician: Logan Mcintosh Total Fluoroscopy time (seconds): 7 Total sedation minutes: 5 Complications: none Procedure in detail & Post-procedure care: FINDINGS Multilevel Central Spinal Stenosis with Nerve Root Compression DESCRIPTION OF PROCEDURE Fluoroscopically guided, contrast-controlled L3/4 translaminar epidural steroid injection. Following review of allergy and review of potential side effects and complications, including, but not necessarily limited to, infection, allergic reaction, local tissue breakdown, temporary as well as permanent nerve injury, paralysis, stroke and possible , the patient indicated that the patient understood and agreed to proceed. An informed consent document was signed by the patient, witnessed by a nurse, and placed in the patient's chart. Additionally, other treatment options including modalities, medications, and physical therapy were reviewed with the patient. After review of previous anaesthesic history and IV conscious sedation the patient was deemed safe to proceed with today?s procedure with IV conscious sedation as ASA class II designation. Safety time-out was performed to confirm patient ID, procedure to be performed and site of procedure. IV sedation was accomplished with a combination of 2mg of Versed was administered by the RN after DO order, titrated to patient comfort during the course of the procedure while the patient remained responsive to all verbal commands. In the prone position, following sterile prep and drape of the lumbar region, the L3/4 translaminar space was identified fluoroscopically. The skin was anesthetized via a 25-gauge, 1.5-inch needle with 1% lidocaine solution. At this point, a 22-gauge short bevel spinal needle was atraumatically introduced and advanced under fluoroscopic guidance into the region of the L3/4 translaminar space. Depth was confirmed on lateral view. Radiological data, including multiple fluoroscopic views of the lumbar spine, reveal a spinal needle at the L3/4 translaminar space. Lateral views then show placement of the needle in the epidural space. Subsequent views show contrast material flowing superiorly and inferiorly in the epidural space. No vascular or intrathecal uptake is observed. At this point, using loss of resistance technique with saline and air, the epidural space was entered. This was confirmed following negative aspiration with injection of approximately 1.5 cc of Isovue 200, showing excellent epidural flow without vascular or intrathecal uptake. At this point, 1cc of 1% lidocaine solution combined with 3cc or 20mg of dexamethasone and 6mg of betamethasone was injected without incident. The patient tolerated the procedure well without signs or symptoms of complications prior to transfer to the recovery area continued monitoring without incident. The patient was then transferred to the recovery area where they were observed for an appropriate period of time after the injection. The patient reported a VAS score of 6 prior to the procedure and a post- procedure VAS of 0. POST OP INSTRUCTIONS The patient was provided a Pain Log to continue to record their response to the target-specific procedure prior to follow-up visit with their referring physician. Additionally, specific post-injection care instructions and a contact number to our office were provided if concerns arise regarding possible complications associated with the procedure are suspected.
== END 2022-09-25 16:23 | disposition home or self-care (01) ==
PROVIDERS: PCP Family Medicine; Referring Provider Physical Medicine & Rehabilitation; Visit Provider Physical Medicine & Rehabilitation
DX: M51.16 Intervertebral disc disorders with radiculopathy, lumbar region (principal); M48.061 Spinal stenosis, lumbar region without neurogenic claudication
CPT/HCPCS: 62323; J0702; J1100; J2250; J3490

== ENCOUNTER → 2023-01-12 14:47 | Outpatient (CLI) | payer MEDICARE, OTHER, SELFPAY ==
--- NOTE | 2023-01-12 14:49 | DI.ECHO.S_ITS ---
[facility]---------+ [facility] +---------+ : : [address] : : : : [id number] : : : : Phone: [phone]+ Echocardiogram Report + + :Name: MARCO SCHMITT Study Date: 01/12/2023 Height: 68 in : :[facility] ReadingLocation: Weight: 211 lb : : Gender: Male BSA: 2.1 m2 : :: 1940 Age: 82 yrs BP: 142/77 mmHg: :Reason For Study: Thoracic Aortic Ectasia : :Ordering Physician: DAGOBERTO, : :CHRISTINE Performed By: Kathe Pearson : :Referring: CHRISTINE ARENAS : + + Interpretation Summary 1) Normal left ventricular thickness and size with low normal systolic function (EF 50-55%). 2) Moderately enlarged right ventricle with normal function. There is a pacemaker lead in the right ventricle. 3) There is moderate tricuspid regurgitation. 4) The ascending aorta is mildly enlarged at 4.2cm. 5) Compared to the Echo done 06/26/2021, no significant change. Procedure: A two-dimensional transthoracic echocardiogram with color flow and Doppler was performed. The study quality was technically adequate. Comparison is made with the echocardiogram of 06/26/2021. The patient has a paced rhythm. Left Ventricle: The left ventricle is normal in size. There is normal left ventricular wall thickness. Proximal septal thickening is noted. The ejection fraction is estimated to be 50-55%. Diastolic function could not be accurately assessed due to paced rhythm. Right Ventricle: The right ventricle is moderately dilated. There is a pacemaker lead in the right ventricle. The right ventricular systolic function is normal. Atria: The left atrium is mildly dilated. The right atrium is severely dilated. There is no Doppler evidence for an interatrial shunt. Mitral Valve: The mitral valve is normal. There is mild mitral annular calcification. There is no mitral valve stenosis. There is mild mitral regurgitation. Aortic Valve: The aortic valve is trileaflet. The aortic valve is mildly calcified. There is no aortic valve stenosis. There is trace aortic regurgitation. Tricuspid Valve: The tricuspid valve is normal. There is no tricuspid stenosis. There is moderate tricuspid regurgitation. The right ventricular systolic pressure is estimated to be at least 30 mmHg based on an estimated right atrial pressure of 8 mm Hg. Pulmonic Valve: The pulmonic valve leaflets are thin and pliable; valve motion is normal. There is no pulmonic valvular stenosis. There is trace pulmonic regurgitation. Great Vessels: The aortic root is mildly dilated. The ascending aorta is mildly enlarged. The pulmonary artery is normal size. The IVC is dilated (diameter is greater than 2.1 cm) yet it collapses greater than 50% with a sniff. This suggests a right atrial pressure of 8 mm Hg. Pericardium/ Pleura There is no pericardial effusion. There is no pleural effusion. MMode/2D Measurements & Calculations LVIDd: 3.1 cm LVOT diam: 2.0 cm LVIDs: 2.0 cm Ao root diam: 4.3 cm FS: 35.5 % asc Aorta Diam: 4.2 cm EPSS: 0.70 cm IVSd: 1.6 cm LVPWd: 1.2 cm LV waller. diameter/BSA (cm/m^2): 1.5 LV sys. diameter/BSA (cm/m^2): 0.96 LA A2 area: 22.1 cm2 RA long axis: 6.6 cm LA A4 area: 19.8 cm2 RA area: 29.1 cm2 LA length (vol): 6.2 cm RA vol: 109.6 ml LA vol: 60.4 ml RA : 52.4 ml/m2 LA vol index: 28.9 ml/m2 RVD1 (basal): 5.2 cm LVLs ap4: 6.2 cm LVLd ap2: 7.0 cm LA Width_phl: 4.6 cm LVLs ap2: 6.3 cm TAPSE_phl: 2.3 cm Doppler Measurements & Calculations Ao V2 max: 127.6 cm/sec LVOT Max Eduardo: 95.2 cm/sec Ao V2 mean: 90.9 cm/sec LV V1 max P.6 mmHg Ao max P.0 mmHg LV V1 VTI: 18.9 cm Ao mean P.0 mmHg VIKI(I,D): 2.2 cm2 Ao V2 VTI: 27.1 cm VIKI(V,D): 2.3 cm2 sev ratio: 0.70 VIKI indexed to BSA (cm^2/m^2): 1.0 Med Peak E' Eduardo: 9.9 cm/sec TR max eduardo: 232.0 cm/sec Lat Peak E' Eduardo: 13.4 cm/sec TR max P.6 mmHg PA V2 max: 116.0 cm/sec PA V2 mean: 74.8 cm/sec PA mean P.0 mmHg PA pr(Accel): 49.3 mmHg SV(LVOT): 59.5 ml AV VR_phl: 0.74 VIKI(VTI)/BSA_phl: 1.1 Reading Physician:10:21 AM
== END ==
PROVIDERS: PCP Family Medicine; Referring Provider Internal Medicine Cardiovascular Disease; Visit Provider Internal Medicine Cardiovascular Disease
DX: I77.810 Thoracic aortic ectasia; I08.1 Rheumatic disorders of both mitral and tricuspid valves; I77.89 Other specified disorders of arteries and arterioles
CPT/HCPCS: 93306

== ENCOUNTER 2023-02-06 11:48 | Outpatient (CLI) | payer MEDICARE, OTHER, SELFPAY ==
--- NOTE | 2023-02-06 | DI.RAD.S_ITS ---
PROCEDURE: FL INJECT SPINE FOR CT MYELO INDICATIONS: LUMBAR PAIN WITH CLAUDICATION COMPARISON: [facility], CT, CT LUMBAR SPINE WO CON, 08/08/2022, 11:31. [facility], CR, XR LUMBAR SPINE WITH FLEXION EXTENSION 5 VIEWS, 01/01/2023, 13:27. TECHNIQUE: The indications, alternatives, benefits, risks and complications of the procedure were explained to the patient. Written informed consent was obtained and placed in the chart. The patient was placed in a prone position on the fluoroscopy table, and a level was chosen for percutaneous access under fluoroscopic guidance. The skin was prepped and draped in a sterile fashion. After local anaesthetic, a spinal needle was then used to enter the intrathecal space, with return of clear cerebrospinal fluid. 15 mL of Isovue M-200 were administered intrathecally under fluoroscopic visualization. The needle was then withdrawn, and a bandage applied to the puncture site. Fluoroscopic spot films were then acquired in various positions. FINDINGS: Standing frontal, lateral, and oblique views demonstrate no significant central canal stenoses. Access level: Left L2-L3 Medications: 1% lidocaine for local anaesthesia. Complications: None. Patient was transferred to CT for subsequent CT myelogram. IMPRESSION: Successful fluoroscopically guided administration of iodinated contrast into the lumbar spine central canal for CT myelogram. Dictated by: Brian Grey M.D. on 02/06/2023 at 14:13 Approved by: Brian Grey M.D. on 02/06/2023 at 14:15
--- NOTE | 2023-02-06 | DI.CT.S_ITS ---
PROCEDURE: CT LUMBAR MYELOGRAM INDICATIONS: LUMBAR STRAIN/LUMBAR STENOSIS/SPONDYLOLSTHESIS TECHNIQUE: After the intrathecal administration of 15 mL intrathecal contrast, 3 mm thick sections acquired from T12 to the sacrum. Sagittal and coronal reformats were then constructed. For radiation dose reduction, the following was used: automated exposure control. COMPARISON: None. FINDINGS: Image quality: Excellent. Bones: Spinal alignment is normal. No spondylolysis or spondylolisthesis. No suspicious bony lesions. No acute fractures. Grade 1 anterior spondylolisthesis degenerative at L4-5 sacroiliac joint. Soft tissues: Ectatic atherosclerotic abdominal aorta. Retroperitoneal penile pump, partially imaged T12-L1: Normal appearance. L1-L2: Normal appearance. L2-L3: Disc space narrowing with circumferential disc bulge and hypertrophic facet joints results in severe central stenosis. Severe left and moderate right foraminal stenosis. L3-L4: Disc space narrowing with circumferential disc bulge and hypertrophic facet joints results in moderate to severe central stenosis. Moderate bilateral foraminal stenosis L4-L5: Disc height is preserved. Vacuum disc phenomena noted. Circumferential disc bulge, hypertrophic facet joints and ligamentum flavum laxity all contribute to severe central stenosis. Moderate bilateral foraminal stenosis. L5-S1: Disc space narrowing with circumferential disc bulge. No central stenosis. Mild bilateral foraminal stenosis. Miscellaneous: Nerve roots appear unremarkable throughout. No nerve root clumping to suggest arachnoiditis. IMPRESSION: Multilevel degenerative disc disease and arthropathy results in varying degrees of central and foraminal stenosis including severe central stenosis L2-3 and L4-5 with moderate to severe central stenosis L3-4 Approved by: Jn Merida M.D. on 02/06/2023 at 17:24
[2023-02-06 12:34] LABS: Platelet Count 131 X10^3/uL (150-400)
[2023-02-06 12:42] LABS: INR 1.1 (0.9-1.3); Prothrombin Time 12.8 SECONDS (10.1-12.7)
[2023-02-06 12:44] VITALS: BP 117/76; PULSE 16; RESP 70; TEMP 36.4; O2SAT 97; BMI 32.2
[2023-02-06 12:45] LABS: Estimated Glomerular Filt Rate > 60 mL/min (>60); PTT Partial Thromboplastin Tim 34 SECONDS (26-36)
--- NOTE | 2023-02-06 14:44 | SUR.PHASEII ---
Patient returned from DI with no complications. VSS. GCS 15; patient c/o low back pain and pain radiating to his left lower extremity, but states that pain is not worse than in pre-op. Following all commands. Able to move all extremities. Post injection site with dressing clean, dry and intact. Eating crackers and drinking juice without difficulty.
[2023-02-06 15:12] VITALS: BP 110/72; PULSE 69; RESP 16; O2SAT 97
== END 2023-02-06 15:14 | disposition home or self-care (01) ==
PROVIDERS: Specialist; PCP Family Medicine; Referring Provider Physician Assistant; Visit Provider Physician Assistant
DX: M48.062 Spinal stenosis, lumbar region with neurogenic claudication (principal); S39.012A Strain of muscle, fascia and tendon of lower back, initial encounter; M43.16 Spondylolisthesis, lumbar region; Z95.0 Presence of cardiac pacemaker
CPT/HCPCS: 36415; 62284; 72133; 77003; 82565; 82962; 85049; 85610; 85730

== ENCOUNTER → 2023-03-05 11:38 | Outpatient (CLI) | payer MEDICARE, OTHER, SELFPAY ==
--- NOTE | 2023-03-05 | DI.CT.S_ITS ---
PROCEDURE: CT CHEST W CON INDICATIONS: CHRONIC COUGH / CHRONIC NIGHT SWEATS TECHNIQUE: After the administration of intravenous contrast, 5 mm thick sections acquired from the pulmonary apices to the posterior costophrenic angles. 1 mm axial lung, 5 mm thick coronal and sagittal reformats and 7 mm axial MIP were acquired. For radiation dose reduction, the following was used: automated exposure control, adjustment of mA and/or kV according to patient size. COMPARISON: None. FINDINGS: Image quality: Good. Lungs and pleura: Mild upper lobe predominant centrilobular emphysema and moderate paraseptal emphysema. Scattered sub 6 mm pulmonary nodules, for example, 3 mm nodule in the left upper lobe (3/101, MIP image 62), 2 mm nodule in the left lower lobe (3/198, MIP image 109), and 2 mm right upper lobe nodule (3/156, MIP image 77). No pleural effusions or pneumothorax. Central and peripheral airways are patent and normal in caliber. Mediastinum: Heart size is normal. No pericardial effusion. Coronary artery calcifications. No mediastinal or hilar adenopathy by size criteria. Thoracic aorta and central pulmonary arteries are normal in size. Esophagus is normal in caliber. No hiatal hernia. Bones and chest wall: No suspicious bony lesions. No vertebral body compression fractures. No axillary or supraclavicular adenopathy by size criteria. Thyroid gland is unremarkable. Right chest wall AICD device. Abdomen: Visualized upper abdominal solid organs appear normal. Upper abdominal bowel loops are normal in caliber. IMPRESSION: Mild centrilobular and moderate paraseptal emphysema. Scattered sub 6 mm solid pulmonary nodules. Imaging follow-up guidelines as below. Fleischner Society criteria for SOLID lung nodule followup. Nodule size (mm)Low-risk patientHigh-risk patient<6 (single or multiple)No routine followup.Optional CT at 12 months. 6-8 (single or multiple)CT at 6-12 months, then optional CT at 18-24 mo.CT at 6-12 months, then CT at 18-24 months. >8 (single)CT at 3 months, PET-CT, or biopsy. Same as for low-risk pts. >8 (multiple)CT at 3-6 months, then optional CT at 18-24 mo.CT at 3-6 months, then CT at 18-24 months. Fleischner Society criteria for SUB-SOLID lung nodule followup. Solitary pure ground-glass nodules<6 mm (ground glass or part solid)No followup needed. 6 mm or larger (ground glass)CT at 6-12 months to confirm persistence, then CT every 2 years until 5 years.6 mm or larger (part solid)CT at 3-6 months to confirm persistence, then annual CT until 5 years if unchanged and solid component remains <6 mm. Multiple sub-solid nodules<6 mmCT at 3-6 months, then CT consider at 2 & 4 years for high risk patients. [address] at 3-6 months. Subsequent management based on most suspicious lesions. Recommendations do not apply to lung cancer screening, patients with immunosuppression, or patients with known primary cancer. Approved by: Alison Robles M.D. on 03/05/2023 at 23:03
== END ==
PROVIDERS: PCP Family Medicine; Referring Provider Family Medicine; Visit Provider Family Medicine
DX: R05.3 Chronic cough (principal); R61 Generalized hyperhidrosis; J43.2 Centrilobular emphysema
CPT/HCPCS: 71260; Q9967

== ENCOUNTER 2023-05-11 22:32 | Emergency (ER) | payer MEDICARE, OTHER, SELFPAY ==
[2023-05-11 22:32] VITALS: BP 159/87; PULSE 70; RESP 16; TEMP 36.5; O2SAT 97; BMI 30.7
--- NOTE | 2023-05-11 22:43 | ED.HEATRA ---
HPI - Head Injury General Chief complaint: Head Injury Stated complaint: lac on head- rolled off bed Time Seen by Provider: 05/11/23 22:38 Source: patient and EMS Mode of arrival: EMS History of Present Illness HPI Narrative: Patient is an 83-year-old male. He is on anticoagulation. He states he was lying in bed. He was reaching for something on the side of the bed. He states that he was reaching little to for and could not reach it. He states the type of mattress that he has does not have a whole lot edge support and he just started to roll further and can stop himself. He did fall out of bed. He sustained a abrasion to his right shoulder and left elbow. He did hit his head. No loss of consciousness. He was bleeding from his head. Denies neck pain. No other extremity injuries or discomfort. Related Data Home Medications Medication Instructions Recorded Confirmed apixaban 5 mg tablet (Eliquis) 5 mg PO BID 01/10/19 04/17/23 atorvastatin 40 mg tablet 40 mg PO QPM 01/10/19 04/17/23 cholecalciferol (vitamin D3) 25 1,000 unit PO DAILY 01/10/19 04/17/23 mcg (1,000 unit) capsule ipratropium bromide 42 mcg (0.06 2 spray intranasal TID 01/10/19 04/17/23 %) nasal spray loratadine 10 mg tablet 10 mg PO DAILY 01/10/19 04/17/23 metoprolol succinate 25 mg 25 mg PO DAILY 01/10/19 04/17/23 tablet,extended release 24 hr multivitamin (Multiple Vitamins 1 tab PO DAILY 01/10/19 04/17/23 tablet) omeprazole 20 mg capsule,delayed 20 mg PO DAILY 01/10/19 04/17/23 release acetaminophen 500 mg tablet 1,000 mg PO Q6H PRN Pain 08/06/20 04/17/23 (Tylenol Extra Strength) coenzyme Q10 75 mg capsule (Ultra 300 mg PO DAILY 08/06/20 04/17/23 CoQ10) magnesium 200 mg tablet 400 mg PO DAILY 08/06/20 04/17/23 mecobalamin (vitamin B12) 1,000 1,000 mcg sublingual DAILY 08/06/20 04/17/23 mcg disintegrating tablet,sublingual lactobacillus combination no.8 3 3,000 mmu cells PO DAILY 09/03/20 04/17/23 billion cell capsule (Adult Probiotic) Respironics DreamStation BiPAP 06/13/21 04/17/23 blood sugar diagnostic ([facility] 12/23/21 04/17/23 Verio test strips) empagliflozin 25 mg tablet 25 mg PO DAILY 09/05/22 04/17/23 (Jardiance) methocarbamol 500 mg tablet 500 mg PO BID 03/10/23 04/17/23 duloxetine 20 mg capsule,delayed 20 mg PO BID 04/17/23 04/17/23 release lancets 33 gauge (OneTouch Delica #100 ea 04/17/23 04/17/23 Plus Lancet) lisinopril 2.5 mg tablet 2.5 mg PO DAILY 04/17/23 04/17/23 sitagliptin phosphate 50 1 tab PO BID 04/17/23 04/17/23 mg-metformin 1,000 mg tablet (Janumet) tiotropium bromide 18 mcg capsule 1 cap inhalation DAILY 04/17/23 04/17/23 with inhalation device Previous Rx's Medication Instructions Recorded vibegron 75 mg tablet (Gemtesa) 75 mg PO DAILY #90 tabs 12/10/22 gabapentin 600 mg tablet 600 mg PO 3XD #270 tabs 05/01/23 Allergies Allergy/AdvReac Type Severity Reaction Status Date / Time latex Allergy Intermediate ITCHING Verified 05/11/23 22:42 Review of Systems Constitutional Constitutional: Reports system reviewed and no additional complaints, except as documented Cardiovascular Cardiovascular: Reports system reviewed and no additional complaints, except as documented Musculoskeletal Musculoskeletal: Reports system reviewed and no additional complaints, except as documented Integumentary/Breasts Skin/Breast: Reports system reviewed and no additional complaints, except as documented Neurologic Neurologic: Reports system reviewed and no additional complaints, except as documented Hematologic/Lymphatic On Anticoagulants: Yes Patient History Medical History Lumbar stenosis with neurogenic 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, flaccid Neurogenic bladder Urinary retention Facet arthropathy, lumbar Atrial fibrillation Spondylolisthesis at L4-L5 level Pacemaker (05/27/16) Hypertension Diabetes Asthma Lumbar radiculopathy Obesity (BMI 30-39.9) Fatigue Excessive daytime sleepiness Obstructive sleep apnea Surgical History Hx of cystoscopy (10/31/20) History of vasectomy History of transurethral resection of prostate History of penile implant (03/21/18) History of circumcision History of cholecystectomy Family History Mother Cancer Father Stroke Social History marital status: household members: spouse occupational status: previously employed Smoking Status: Former smoker Tobacco: How many years used: 35 alcohol intake: former caffeine: Yes Smoking Status: Former smoker Substance Use Type: does not use Exam Initial Vital Signs Initial Vital Signs: Vital Signs Temperature 97.7 F 05/11/23 22:32 Pulse Rate 70 05/11/23 22:32 Respiratory Rate 16 05/11/23 22:32 Blood Pressure 159/87 H 05/11/23 22:32 Pulse Oximetry 97 05/11/23 22:32 Oxygen Delivery Method Room Air 05/11/23 22:32 HENMT Head: laceration Resp Effort & Inspection: normal respiratory effort Cardio Rate: regular rate Back/Spine/Pelvis Cervical Spine: No cervical spinal tenderness Skin Other: Superficial skin tear to the right shoulder. Superficial skin tear to the left elbow. Patient with a irregular? you? she laceration to the right forehead. Total of 5 cm Neuro General: patient alert, patient awake and patient oriented x3 Extrem Other: Moves all 4 extremities Procedures Laceration Repair Laceration 1: Site: scalp Side (If applicable): right Size (cm): 5 Description: flap and irregular Depth: simple, single layer Local Anesthetic: lidocaine 1% and with epi Amount of anesthesia used (mL): 10 Pre-repair: irrigated extensively and deep structures intact Skin layer closed with: nylon Skin layer suture size: 4-0 Number of sutures: 13 Technique: simple, interrupted Scores GCS Hendricks coma scale eye opening: Spontaneous Hendricks coma scale verbal response: Orientated Hendricks coma scale motor response: Obey commands Nikky coma scale total score: 15 Nexus Score for C-Spine Focal Neurologic deficit present: No Midline spinal tenderness present: No Altered level of conciousness present: No Intoxication present: No Distracting Injury Present: No Nexus Criteria for C-spine: 0 Course Orders Ordered: ED Orders 05/11/23 22:43 CT head/brain wo con Stat Discontinued Medications Bacitracin (Bacitracin Oint 0.9 Gm Pckt) 1 applic TOP NOW ONE Stop: 05/11/23 22:44 Last Admin: 05/11/23 23:15 Dose: 1 applic Documented By: DUNCAN Lidocaine/Epinephrine (Lidocaine 2% W/Epi Inj) 20 ml INJ INTRA-OP ONE Stop: 05/11/23 23:35 Last Admin: 05/11/23 23:43 Dose: 20 ml Documented By: DUNCAN Vital Signs Vital signs: Vital Signs - 8 hr 05/11/23 22:32 05/12/23 00:30 Temperature 97.7 F 97.5 F L Pulse Rate 70 70 Respiratory Rate 16 18 Blood Pressure 159/87 H 122/70 Pulse Oximetry 97 96 Oxygen Delivery Method Room Air Room Air MDM - Head Injury Imaging Data CT scan - head: Radiologist's Impression: PROCEDURE: CT HEAD/BRAIN WO CON INDICATIONS: fall with R frontal injury on Eliquis TECHNIQUE: Noncontrast 4.5 mm thick angled axial sections acquired from the foramen magnum to the vertex, with coronal and sagittal reformats. For radiation dose reduction, the following was used: automated exposure control, adjustment of mA and/or kV according to patient size. COMPARISON: [facility], CT, CT HEAD/BRAIN WO CON, 09/13/2022, 16:56. FINDINGS: Image quality: Diagnostic. CSF spaces: Basal cisterns are patent. No extra-axial fluid collections. The ventricles are symmetric in size and shape. Brain: No intracranial bleeds or masses. There is cerebral volume loss for age, with resultant ventricular and sulcal prominence. There are periventricular and deep white matter chronic small vessel ischemic changes. There is intracranial internal carotid artery atherosclerosis. Skull and face: Calvarium and visualized facial bones appear intact, without suspicious lesions. Right frontal scalp hematoma with skin laceration. Sinuses: Visualized sinuses and mastoids are clear. IMPRESSION: No acute intracranial pathology. Right frontal scalp hematoma with skin laceration. No associated craniofacial fracture. [facility] Narrative Medical decision making narrative: This was a mechanical issue is he just rolled out of bed. Head CT is unremarkable. Scalp lack was closed as described above. Cervical spine cleared by nexus criteria. No other injuries from the event. Will discharge patient home. Instructions to return precautions. He expressed understanding and agreement. Discharge Plan Departure Patient Disposition: Home Clinical Impression: Laceration of scalp, Skin tear Instructions: DI for Laceration Repair of the Scalp Activity Restrictions/Additional Instructions: The stitches do need to be removed in 7-10 days. You can go to the walk-in clinic for this. I do recommend that you try to bandage the areas as much as possible however he still could get some drainage from the area. You can shower like normal. Return to the emergency department for new or worsening symptoms. Prescriptions: No Action acetaminophen [Tylenol Extra Strength] 500 mg tablet 1,000 mg PO Q6H PRN (Reason: Pain) mecobalamin (vitamin B12) 1,000 mcg tablet,disintegrating 1,000 mcg sublingual DAILY Rx Instructions: place tablet under tongue and allow to dissolve for at least30 secs before swallowing Ultra CoQ10 75 mg capsule 300 mg PO DAILY magnesium 200 mg tablet 400 mg PO DAILY Gemtesa 75 mg tablet 75 mg PO DAILY Qty: 90 3RF gabapentin 600 mg tablet 600 mg PO 3XD Qty: 270 1RF Adult Probiotic 3 billion cell capsule 3,000 mmu cells PO DAILY Rx Instructions: administer with a meal tiotropium bromide 18 mcg capsule, w/inhalation device 1 cap inhalation DAILY duloxetine 20 mg capsule,delayed release(DR/EC) 20 mg PO BID Janumet 50-1,000 mg tablet 1 tab PO BID (DME) lancets [OneTouch Delica Plus Lancet] 33 gauge misc See Rx Instructions .ROUTE 3XD Qty: 100 Rx Instructions: As directed lisinopril 2.5 mg tablet 2.5 mg PO DAILY (DME) OneTouch Verio test strips Strip See Rx Instructions .ROUTE .MEDSUPPLY Qty: 10 Patient Comments: FOR CHECKING BLOOD GLUCOSE LEVELS three times a day for diabetes Rx Instructions: As directed Jardiance 25 mg tablet 25 mg PO DAILY Patient Comments: TAKE 1 TABLET BY MOUTH ONCE A DAY multivitamin [Multiple Vitamins] tablet 1 tab PO DAILY atorvastatin 40 mg tablet 40 mg PO QPM omeprazole 20 mg capsule,delayed release(DR/EC) 20 mg PO DAILY metoprolol succinate 25 mg tablet extended release 24 hr 25 mg PO DAILY ipratropium bromide 42 mcg (0.06 %) spray,non-aerosol 2 spray NASAL TID loratadine 10 mg tablet 10 mg PO DAILY cholecalciferol (vitamin D3) 1,000 unit capsule 1,000 unit PO DAILY Eliquis 5 mg tablet 5 mg PO BID (DME) Respironics DreamStation BiPAP See Rx Instructions .Route .MEDSUPPLY Rx Instructions: IPAP: 16 EPAP: 5 MaxPS: 5 MinPS: 5 DME: [employer] methocarbamol 500 mg tablet 500 mg PO BID Referrals: Logan Palma MD [Primary Care Provider] - Stand Alone Forms: Patient Portal/API
[2023-05-11] MEDS: BACITRACIN OINT 0.9 GM PCKT 1 APPLIC TOP (23:15)
[2023-05-11] MEDS: LIDOCAINE 2% W/EPI INJ 20 ML INJ (23:43)
[2023-05-12 00:30] VITALS: BP 122/70; PULSE 70; RESP 18; TEMP 36.4; O2SAT 96
== END 2023-05-12 00:30 | disposition home or self-care (01) ==
PROVIDERS: Emergency Provider Emergency Medicine; PCP Family Medicine
DX: S01.01XA Laceration without foreign body of scalp, initial encounter (principal); W06.XXXA Fall from bed, initial encounter; Z79.01 Long term (current) use of anticoagulants; Z79.899 Other long term (current) drug therapy
CPT/HCPCS: 12002; 36415; 70450; 99284

== ENCOUNTER → 2023-06-16 10:29 | Outpatient (CLI) | payer MEDICARE, SELFPAY ==
[2023-06-16 17:43] LABS: Creatinine Urine Random 50.7 mg/dL
[2023-06-16 17:47] LABS: Microalbumi Creatinin Ratio Ur 96.6 ug/mg CR (<30); Microalbumin Urine Random 4.9 mg/dL (0-1.6)
== END ==
PROVIDERS: PCP Family Medicine; Visit Provider Family Medicine
DX: R39.9 Unspecified symptoms and signs involving the genitourinary system (principal)
CPT/HCPCS: 82043; 82570; 87077; 87086; 87186

== ENCOUNTER → 2023-06-30 07:10 | Outpatient (CLI) | payer MEDICARE, SELFPAY ==
[2023-06-30 07:58] LABS: Add Manual Diff / Slide Review NO; Basophils Absolute Auto 0 /uL (0-100); Basophils Percent Auto 0.7 % (0-2); Eosinophils Absolute Auto 300 /uL (0-450); Eosinophils Percent Auto 4.2 % (2-4); Hematocrit 37.3 % (41-53); Hemoglobin 12.4 g/dL (13.5-17.5); Lymphocytes Absolute Auto 1300 /uL (1100-4500); Lymphocytes Percent Auto 21.6 % (25-40); Mean Corpuscular HGB Conc 33.2 % (30-36); Mean Corpuscular Hemoglobin 33.7 PG (26-34); Mean Corpuscular Volume 101.4 fL (80-100); Monocytes Absolute Auto 500 /uL (0-900); Monocytes Percent Auto 8.2 % (3-14); Neutrophils Absolute Auto 4100 /uL (1500-7000); Neutrophils Percent Auto 65.3 % (50-75); Platelet Count 274 X10^3/uL (150-400); Red Blood Cell Count 3.68 X10^6/uL (4.5-5.9); Red Cell Distribution Width 14.5 % (11.6-14.8); White Blood Cell Count 6.2 X10^3/uL (4.5-11.0)
[2023-06-30 08:17] LABS: Alanine Aminotransferase 23 IU/L (<50); Albumin 4.1 g/dL (3.5-5.0); Albumin Globulin Ratio 1.4 (1.0-2.8); Alkaline Phosphatase 101 U/L (38-126); Aspartate Aminotransferase 28 IU/L (17-59); BUN Creatinine Ratio 32.5 (6-22); Bilirubin Total 0.8 mg/dL (0.2-1.3); Blood Urea Nitrogen 25 mg/dL (9-20); Calcium 9.8 mg/dL (8.4-10.2); Carbon Dioxide 26 mmol/L (22-32); Chloride 105 mmol/L (98-107); Cholesterol 121 mg/dL (140-199); Estimated Glomerular Filt Rate > 60 mL/min (>60); Globulin 2.9 g/dL (1.7-4.1); Glucose 123 mg/dL (80-110); HDL Cholesterol 37 mg/dL (40-60); HEMOLYSIS < 15 (0-50); LDL Cholesterol Calculated 60 mg/dL (<100); Sodium 140 mmol/L (137-145); Triglycerides 122 mg/dL (35-150)
[2023-07-01 12:09] LABS: x Labcorp Estim. Avg Glu (eAG) 148 mg/dL (.); x Labcorp Hemoglobin A1c 6.8 % (4.8-5.6)
== END ==
PROVIDERS: PCP Family Medicine; Referring Provider Family Medicine; Visit Provider Family Medicine
DX: E11.9 Type 2 diabetes mellitus without complications (principal); I48.91 Unspecified atrial fibrillation; G47.33 Obstructive sleep apnea (adult) (pediatric); G47.19 Other hypersomnia; R53.83 Other fatigue
CPT/HCPCS: 36415; 80053; 80061; 83036; 85025

== ENCOUNTER → 2023-07-17 18:35 | Outpatient (CLI) | payer MEDICARE, SELFPAY | PROVIDERS: PCP Family Medicine; Visit Provider Nurse Practitioner Family | DX: N39.0 Urinary tract infection, site not specified (principal) | CPT/HCPCS: 87077; 87086; 87186 ==

== ENCOUNTER → 2023-08-10 09:32 | Outpatient (CLI) | payer MEDICARE, SELFPAY ==
[2023-08-10 10:18] LABS: Add Manual Diff / Slide Review NO; Basophils Absolute Auto 0 /uL (0-100); Basophils Percent Auto 0.5 % (0-2); Eosinophils Absolute Auto 200 /uL (0-450); Eosinophils Percent Auto 2.1 % (2-4); Hemoglobin 13.6 g/dL (13.5-17.5); Lymphocytes Absolute Auto 1200 /uL (1100-4500); Lymphocytes Percent Auto 15.5 % (25-40); Mean Corpuscular HGB Conc 33.1 % (30-36); Mean Corpuscular Hemoglobin 33.5 PG (26-34); Mean Corpuscular Volume 101.5 fL (80-100); Monocytes Absolute Auto 600 /uL (0-900); Monocytes Percent Auto 8.3 % (3-14); Neutrophils Absolute Auto 5600 /uL (1500-7000); Neutrophils Percent Auto 73.6 % (50-75); Platelet Count 175 X10^3/uL (150-400); Red Blood Cell Count 4.04 X10^6/uL (4.5-5.9); Red Cell Distribution Width 14.8 % (11.6-14.8); White Blood Cell Count 7.6 X10^3/uL (4.5-11.0)
== END ==
PROVIDERS: PCP Family Medicine; Referring Provider Family Medicine; Visit Provider Family Medicine
DX: I48.20 Chronic atrial fibrillation, unspecified (principal); E11.42 Type 2 diabetes mellitus with diabetic polyneuropathy; D53.9 Nutritional anemia, unspecified; R53.83 Other fatigue; R61 Generalized hyperhidrosis
CPT/HCPCS: 36415; 85025

== ENCOUNTER → 2023-08-31 09:41 | Outpatient (CLI) | payer OTHER, SELFPAY ==
[2023-08-31 11:24] LABS: Appearance Urine UA CLEAR; Bilirubin Urine UA NEGATIVE (NEGATIVE); Color Urine UA YELLOW; Glucose Urine UA NEGATIVE (Negative); Ketones Urine UA NEGATIVE (NEGATIVE); Leukocyte Esterase Urine UA 1+ (NEGATIVE); Nitrite Urine UA NEGATIVE (Negative); Occult Blood Urine UA NEGATIVE (Negative); Protein Urine UA TRACE (Negative); Urobilinogen Urine UA 0.2 E.U./dL (0.2); pH Urine UA 5.5 (4.5-8.0)
[2023-08-31 11:28] LABS: Add Manual Diff / Slide Review NO; Basophils Absolute Auto 0 /uL (0-100); Basophils Percent Auto 0.5 % (0-2); Eosinophils Absolute Auto 400 /uL (0-450); Eosinophils Percent Auto 5.9 % (2-4); Hematocrit 39.5 % (41-53); Hemoglobin 13.2 g/dL (13.5-17.5); Lymphocytes Absolute Auto 900 /uL (1100-4500); Lymphocytes Percent Auto 15.8 % (25-40); Mean Corpuscular HGB Conc 33.4 % (30-36); Mean Corpuscular Hemoglobin 33.3 PG (26-34); Mean Corpuscular Volume 99.7 fL (80-100); Monocytes Absolute Auto 500 /uL (0-900); Monocytes Percent Auto 8.7 % (3-14); Neutrophils Absolute Auto 4200 /uL (1500-7000); Neutrophils Percent Auto 69.1 % (50-75); Platelet Count 163 X10^3/uL (150-400); Red Blood Cell Count 3.96 X10^6/uL (4.5-5.9); Red Cell Distribution Width 14.8 % (11.6-14.8)
[2023-08-31 11:35] LABS: Urine Volume 10mL (spun)
[2023-08-31 11:36] LABS: Bacteria Urine Few (2-10); RBC Urine None Seen (0-5/HPF); WBC Urine 5-10/HPF (0-5/HPF)
[2023-08-31 11:37] LABS: Culture Indicated Urine Specimen Cultured; Squamous Epithelial Cell Urine 1-5 /HPF (0-5/HPF)
[2023-08-31 11:42] LABS: Vitamin D 25 Hydroxy (D3) 69.4 ng/mL (30.0-100.0)
[2023-08-31 11:58] LABS: Creatinine Urine Random 72.8 mg/dL
[2023-08-31 12:02] LABS: Microalbumi Creatinin Ratio Ur 100.2 ug/mg CR (<30); Microalbumin Urine Random 7.3 mg/dL (0-1.6)
[2023-08-31 12:31] LABS: Folate > 20.0 ng/mL (2.76-20.0); Vitamin B12 > 1000 pg/mL (239-931)
== END ==
PROVIDERS: Specialist; PCP Family Medicine; Referring Provider Family Medicine; Visit Provider Family Medicine
DX: R80.9 Proteinuria, unspecified (principal); E11.9 Type 2 diabetes mellitus without complications; D53.9 Nutritional anemia, unspecified; R53.83 Other fatigue; R33.9 Retention of urine, unspecified; R39.9 Unspecified symptoms and signs involving the genitourinary system
CPT/HCPCS: 36415; 81001; 82043; 82306; 82570; 82607; 82746; 85025; 87077; 87086; 87186

== ENCOUNTER → 2023-09-25 17:18 | Outpatient (CLI) | payer MEDICARE, OTHER, SELFPAY ==
[2023-09-25 18:19] LABS: HEMOLYSIS < 15 (0-50); Iron 100 ug/dL (49-181)
[2023-09-25 18:23] LABS: Alanine Aminotransferase 32 IU/L (<50); Albumin 4.4 g/dL (3.5-5.0); Albumin Globulin Ratio 1.6 (1.0-2.8); Alkaline Phosphatase 89 U/L (38-126); Aspartate Aminotransferase 30 IU/L (17-59); BUN Creatinine Ratio 33.8 (6-22); Bilirubin Total 0.8 mg/dL (0.2-1.3); Blood Urea Nitrogen 22 mg/dL (9-20); C-Reactive Protein Quant < 0.5 mg/dL (<1.0); Calcium 10.2 mg/dL (8.4-10.2); Carbon Dioxide 27 mmol/L (22-32); Chloride 105 mmol/L (98-107); Estimated Glomerular Filt Rate > 60 mL/min (>60); Globulin 2.8 g/dL (1.7-4.1); Glucose 117 mg/dL (80-110); HEMOLYSIS < 15 (0-50); Potassium 4.5 mmol/L (3.4-5.1); Sodium 138 mmol/L (137-145); Total Protein 7.2 g/dL (6.3-8.2)
[2023-09-25 18:31] LABS: Percent Iron Saturation 28 % (20-50); Total Iron Binding Capacity 356 ug/dL (261-462); Transferrin 251 mg/dL (206-381)
[2023-09-25 18:51] LABS: TSH w/ Reflex to FT4 1.48 uIU/mL (0.47-4.68)
[2023-09-25 20:37] LABS: HIV 1 & 2 Ab/Ag 4th Gen Combo NEGATIVE (NEGATIVE)
== END ==
PROVIDERS: PCP Family Medicine; Referring Provider Family Medicine; Visit Provider Family Medicine
DX: E11.9 Type 2 diabetes mellitus without complications (principal); D53.9 Nutritional anemia, unspecified; R80.9 Proteinuria, unspecified; N39.0 Urinary tract infection, site not specified; R61 Generalized hyperhidrosis
CPT/HCPCS: 36415; 80053; 83540; 83550; 84443; 86140; 87040; 87389

== ENCOUNTER → 2023-09-26 08:04 | Outpatient (CLI) | payer MEDICARE, OTHER, SELFPAY ==
[2023-09-26 08:45] LABS: Appearance Urine UA CLEAR; Bilirubin Urine UA NEGATIVE (NEGATIVE); Color Urine UA YELLOW; Glucose Urine UA NEGATIVE (Negative); Ketones Urine UA NEGATIVE (NEGATIVE); Leukocyte Esterase Urine UA NEGATIVE (NEGATIVE); Nitrite Urine UA NEGATIVE (Negative); Occult Blood Urine UA NEGATIVE (Negative); Protein Urine UA TRACE (Negative); Specific Gravity Urine UA <=1.005 (1.000-1.035); Urobilinogen Urine UA 0.2 E.U./dL (0.2); pH Urine UA 6.5 (4.5-8.0)
[2023-09-26 09:57] LABS: Creatinine Urine Random 35.6 mg/dL
[2023-09-26 10:02] LABS: Microalbumin Urine Random 14.1 mg/dL (0-1.6)
== END ==
PROVIDERS: PCP Family Medicine; Referring Provider Family Medicine; Visit Provider Family Medicine
DX: R30.0 Dysuria (principal); E11.9 Type 2 diabetes mellitus without complications; D53.9 Nutritional anemia, unspecified; R80.9 Proteinuria, unspecified; R61 Generalized hyperhidrosis; N39.0 Urinary tract infection, site not specified
CPT/HCPCS: 81003; 82043; 82570; 87040

== ENCOUNTER → 2023-10-20 16:41 | Outpatient (CLI) | payer MEDICARE, OTHER, SELFPAY ==
[2023-10-20 17:28] LABS: Appearance Urine UA CLOUDY; Bilirubin Urine UA NEGATIVE (NEGATIVE); Color Urine UA YELLOW; Glucose Urine UA NEGATIVE (Negative); Ketones Urine UA NEGATIVE (NEGATIVE); Leukocyte Esterase Urine UA 3+ (NEGATIVE); Nitrite Urine UA NEGATIVE (Negative); Occult Blood Urine UA 1+ (Negative); Protein Urine UA NEGATIVE (Negative); Specific Gravity Urine UA <=1.005 (1.000-1.035); Urobilinogen Urine UA 0.2 E.U./dL (0.2)
[2023-10-20 18:41] LABS: RBC Urine 0-1/HPF (0-5/HPF); Urine Volume 10mL (spun)
[2023-10-20 18:42] LABS: Bacteria Urine Many (>30); Culture Indicated Urine Specimen Cultured; Squamous Epithelial Cell Urine 0-1 /HPF (0-5/HPF); WBC Urine >100/HPF (0-5/HPF); White Blood Cell Casts Urine 1-5/LPF
== END ==
PROVIDERS: PCP Family Medicine; Referring Provider Specialist; Visit Provider Specialist
DX: R39.9 Unspecified symptoms and signs involving the genitourinary system (principal); N39.0 Urinary tract infection, site not specified
CPT/HCPCS: 81001; 87077; 87086; 87186

== ENCOUNTER → 2023-10-29 08:19 | Outpatient (CLI) | payer MEDICARE, OTHER, SELFPAY ==
[2023-10-29 10:10] LABS: Hemoglobin A1C% w Est Avg Glu 6.9 % (4.0-6.0)
[2023-11-03 01:11] LABS: Percent Free Testosterone 2.29 % (1.50-4.20); Testosterone Free 0.77 ng/dL (5.00-21.00); Testosterone Total 33.5 ng/dL (264.0-916.0)
[2023-11-03 15:09] LABS: QuantiFERON Mitogen Value >10.00 IU/mL (.); QuantiFERON Nil Value 0.02 IU/mL (.); QuantiFERON TB Gold Plus Negative (Negative); QuantiFERON TB1 Ag Value 0.03 IU/mL (.); QuantiFERON TB2 Ag Value 0.03 IU/mL (.)
== END ==
PROVIDERS: PCP Family Medicine; Referring Provider Family Medicine; Visit Provider Family Medicine
DX: E11.42 Type 2 diabetes mellitus with diabetic polyneuropathy (principal); E66.9 Obesity, unspecified; R23.2 Flushing; R61 Generalized hyperhidrosis
CPT/HCPCS: 36415; 83036; 84402; 84403; 86480

== ENCOUNTER → 2023-11-26 11:28 | Outpatient (CLI) | payer MEDICARE, OTHER, SELFPAY | PROVIDERS: PCP Family Medicine; Referring Provider Family Medicine; Visit Provider Family Medicine | DX: R79.89 Other specified abnormal findings of blood chemistry (principal) | CPT/HCPCS: 36415; 84402; 84403 ==

== ENCOUNTER → 2023-12-09 07:10 | Outpatient (CLI) | payer MEDICARE, OTHER, SELFPAY ==
[2023-12-09 08:37] LABS: HEMOLYSIS < 15 (0-50); Iron 126 ug/dL (49-181)
[2023-12-09 08:48] LABS: Percent Iron Saturation 36 % (20-50); Total Iron Binding Capacity 353 ug/dL (261-462); Transferrin 263 mg/dL (206-381)
[2023-12-09 09:13] LABS: Ferritin 48 ng/mL (18-464)
== END ==
PROVIDERS: PCP Family Medicine; Referring Provider Nurse Practitioner; Visit Provider Nurse Practitioner
DX: E83.10 Disorder of iron metabolism, unspecified (principal); G25.81 Restless legs syndrome
CPT/HCPCS: 36415; 82728; 83540; 83550

== ENCOUNTER → 2023-12-09 09:53 | Outpatient (CLI) | payer MEDICARE, OTHER, SELFPAY | PROVIDERS: PCP Family Medicine; Referring Provider Physical Medicine & Rehabilitation; Visit Provider Surgery | DX: E11.621 Type 2 diabetes mellitus with foot ulcer (principal); L97.521 Non-pressure chronic ulcer of other part of left foot limited to breakdown of skin; L97.821 Non-pressure chronic ulcer of other part of left lower leg limited to breakdown of skin; I87.2 Venous insufficiency (chronic) (peripheral); R60.0 Localized edema; L84 Corns and callosities; E11.42 Type 2 diabetes mellitus with diabetic polyneuropathy; I73.9 Peripheral vascular disease, unspecified; Z79.01 Long term (current) use of anticoagulants | CPT/HCPCS: 97597; 99203; 99213 ==

== ENCOUNTER → 2023-12-10 08:23 | Outpatient (CLI) | payer MEDICARE, OTHER, SELFPAY ==
--- NOTE | 2023-12-10 08:25 | DI.RAD.S_ITS ---
PROCEDURE: XR FOOT LT MIN 3V INDICATIONS: eval for osteo TECHNIQUE: 3 views of the foot were acquired. COMPARISON: None. FINDINGS: Bones: No fractures or dislocations. Hammertoe deformities of the 2nd 3rd and 4th toes. Small enthesophyte along the inferior calcaneus at the insertion of the plantar aponeurosis. No suspicious bony lesions. Soft tissues: No tibiotalar joint effusion. Achilles tendon appears normal. IMPRESSION: Hammertoe deformities of the toes. Small calcaneal spur. No acute bone abnormality demonstrated. Dictated by: Chandler Hensley M.D. on 12/10/2023 at 14:25 Approved by: Chandler Hensley M.D. on 12/10/2023 at 14:28
== END ==
PROVIDERS: PCP Family Medicine; Referring Provider Surgery; Visit Provider Surgery
DX: E11.621 Type 2 diabetes mellitus with foot ulcer (principal); M20.42 Other hammer toe(s) (acquired), left foot; M77.32 Calcaneal spur, left foot
CPT/HCPCS: 73630

== ENCOUNTER → 2023-12-11 09:59 | Outpatient (CLI) | payer MEDICARE, OTHER, SELFPAY | LOC: WC 10:04 | PROVIDERS: PCP Family Medicine; Referring Provider Podiatrist; Visit Provider Surgery | DX: E11.621 Type 2 diabetes mellitus with foot ulcer (principal); L97.521 Non-pressure chronic ulcer of other part of left foot limited to breakdown of skin; L97.822 Non-pressure chronic ulcer of other part of left lower leg with fat layer exposed; L84 Corns and callosities; I87.2 Venous insufficiency (chronic) (peripheral); R60.0 Localized edema | CPT/HCPCS: 99213 ==

== ENCOUNTER → 2023-12-14 08:43 | Outpatient (CLI) | payer MEDICARE, OTHER, SELFPAY | LOC: WC 08:44 | PROVIDERS: PCP Family Medicine; Referring Provider Podiatrist; Visit Provider Physician Assistant | DX: L97.822 Non-pressure chronic ulcer of other part of left lower leg with fat layer exposed (principal); I87.2 Venous insufficiency (chronic) (peripheral); E11.621 Type 2 diabetes mellitus with foot ulcer; L97.521 Non-pressure chronic ulcer of other part of left foot limited to breakdown of skin; R60.0 Localized edema; L84 Corns and callosities | CPT/HCPCS: 99214 ==

== ENCOUNTER → 2023-12-16 13:56 | Outpatient (CLI) | payer MEDICARE, OTHER, SELFPAY | PROVIDERS: PCP Family Medicine; Referring Provider Podiatrist; Visit Provider Nurse Practitioner Family | DX: L97.822 Non-pressure chronic ulcer of other part of left lower leg with fat layer exposed (principal); I87.2 Venous insufficiency (chronic) (peripheral); R60.0 Localized edema; E11.622 Type 2 diabetes mellitus with other skin ulcer; I73.9 Peripheral vascular disease, unspecified; Z79.01 Long term (current) use of anticoagulants | CPT/HCPCS: 11042; 99214 ==

== ENCOUNTER → 2023-12-17 08:18 | Outpatient (CLI) | payer MEDICARE, OTHER, SELFPAY ==
[2023-12-17 10:16] LABS: Alanine Aminotransferase 34 IU/L (<50); Albumin 4.2 g/dL (3.5-5.0); Albumin Globulin Ratio 1.8 (1.0-2.8); Alkaline Phosphatase 116 U/L (38-126); Aspartate Aminotransferase 30 IU/L (17-59); BUN Creatinine Ratio 43.2 (6-22); Blood Urea Nitrogen 32 mg/dL (9-20); Calcium 10.1 mg/dL (8.4-10.2); Carbon Dioxide 27 mmol/L (22-32); Chloride 103 mmol/L (98-107); Cholesterol 129 mg/dL (140-199); Estimated Glomerular Filt Rate > 60 mL/min (>60); Globulin 2.3 g/dL (1.7-4.1); Glucose 197 mg/dL (80-110); HDL Cholesterol 44 mg/dL (40-60); HEMOLYSIS < 15 (0-50); LDL Cholesterol Calculated 70 mg/dL (<100); Potassium 4.3 mmol/L (3.4-5.1); Sodium 139 mmol/L (137-145); Total Protein 6.5 g/dL (6.3-8.2); Triglycerides 75 mg/dL (35-150)
[2023-12-17 10:24] LABS: NT-proBNP (BNP-Adult 18+) 3930 pg/mL (<450)
== END ==
PROVIDERS: PCP Family Medicine; Referring Provider Internal Medicine Cardiovascular Disease; Visit Provider Internal Medicine Cardiovascular Disease
DX: I50.810 Right heart failure, unspecified (principal); I48.20 Chronic atrial fibrillation, unspecified; I11.0 Hypertensive heart disease with heart failure
CPT/HCPCS: 36415; 80053; 80061; 83880

== ENCOUNTER → 2023-12-18 13:28 | Outpatient (CLI) | payer MEDICARE, OTHER, SELFPAY ==
--- NOTE | 2023-12-18 13:29 | DI.US.S_ITS ---
PROCEDURE: US ARTERIAL DUPLEX LE LT INDICATIONS: NON-PRESSURE CHRONIC ULCER LEFT LEG TECHNIQUE: Color and pulse Doppler interrogation was performed of the left lower extremity arterial system, with image documentation. COMPARISON: None. FINDINGS: Common femoral artery: 78 cm/sec, with triphasic flow. Deep femoral artery: 71 cm/sec, with biphasic flow. Proximal superficial femoral artery: 85 cm/sec, with triphasic flow. Mid superficial femoral artery: 82 cm/sec, with triphasic flow. Distal superficial femoral artery: 72 cm/sec, with triphasic flow. Popliteal artery: 60 cm/sec, with triphasic flow. Posterior tibial artery: 90 cm/sec, with triphasic flow. Anterior tibial artery/dorsalis pedis: 45 cm/sec, with triphasic flow. Fowler-scale imaging description: Scattered atherosclerotic plaque. IMPRESSION: Multiphasic waveforms of the left lower extremity arterial vasculature with no velocity shift to suggest hemodynamically significant stenosis. Dictated by: Matti Ferreira M.D. on 12/18/2023 at 19:32 Approved by: Matti Ferreira M.D. on 12/18/2023 at 19:33
== END ==
PROVIDERS: PCP Family Medicine; Referring Provider Nurse Practitioner Family; Visit Provider Nurse Practitioner Family
DX: L97.821 Non-pressure chronic ulcer of other part of left lower leg limited to breakdown of skin (principal)
CPT/HCPCS: 93926

== ENCOUNTER → 2023-12-18 13:51 | Outpatient (CLI) | payer MEDICARE, OTHER, SELFPAY | PROVIDERS: PCP Family Medicine; Referring Provider Podiatrist; Visit Provider Physician Assistant | DX: L97.822 Non-pressure chronic ulcer of other part of left lower leg with fat layer exposed (principal); I87.2 Venous insufficiency (chronic) (peripheral); R60.0 Localized edema | CPT/HCPCS: 93926; 99213 ==

== ENCOUNTER → 2023-12-21 14:34 | Outpatient (CLI) | payer MEDICARE, OTHER, SELFPAY | LOC: WC 14:36 | PROVIDERS: PCP Family Medicine; Referring Provider Podiatrist; Visit Provider Surgery | DX: L97.822 Non-pressure chronic ulcer of other part of left lower leg with fat layer exposed (principal); I87.2 Venous insufficiency (chronic) (peripheral); R60.0 Localized edema | CPT/HCPCS: 99212 ==

== ENCOUNTER → 2023-12-23 11:33 | Outpatient (CLI) | payer MEDICARE, OTHER, SELFPAY | LOC: WC 11:33 | PROVIDERS: PCP Family Medicine; Referring Provider Podiatrist; Visit Provider Surgery | DX: L97.822 Non-pressure chronic ulcer of other part of left lower leg with fat layer exposed (principal); I87.2 Venous insufficiency (chronic) (peripheral); E11.622 Type 2 diabetes mellitus with other skin ulcer; R60.0 Localized edema; I73.9 Peripheral vascular disease, unspecified; Z79.01 Long term (current) use of anticoagulants | CPT/HCPCS: 11042 ==

== ENCOUNTER → 2023-12-25 14:57 | Outpatient (CLI) | payer MEDICARE, OTHER, SELFPAY | LOC: WC 15:00 | PROVIDERS: PCP Family Medicine; Referring Provider Podiatrist; Visit Provider Physician Assistant | DX: L97.822 Non-pressure chronic ulcer of other part of left lower leg with fat layer exposed (principal); I87.2 Venous insufficiency (chronic) (peripheral); R60.0 Localized edema | CPT/HCPCS: 29581 ==

== ENCOUNTER → 2023-12-30 13:31 | Outpatient (CLI) | payer MEDICARE, OTHER, SELFPAY | LOC: WC 13:32 | PROVIDERS: PCP Family Medicine; Referring Provider Podiatrist; Visit Provider Surgery | DX: E11.621 Type 2 diabetes mellitus with foot ulcer (principal); L97.822 Non-pressure chronic ulcer of other part of left lower leg with fat layer exposed; L98.8 Other specified disorders of the skin and subcutaneous tissue; R60.0 Localized edema | CPT/HCPCS: 11042 ==

== ENCOUNTER → 2024-01-07 10:16 | Outpatient (CLI) | payer MEDICARE, OTHER, SELFPAY | PROVIDERS: PCP Family Medicine; Referring Provider Podiatrist; Visit Provider Surgery | DX: E11.628 Type 2 diabetes mellitus with other skin complications (principal); I73.9 Peripheral vascular disease, unspecified; R60.0 Localized edema; Z79.01 Long term (current) use of anticoagulants | CPT/HCPCS: 99212; 99213 ==

== ENCOUNTER → 2024-01-21 09:08 | Outpatient (CLI) | payer MEDICARE, OTHER, SELFPAY ==
[2024-01-21 11:07] LABS: BUN Creatinine Ratio 40.3 (6-22); Blood Urea Nitrogen 31 mg/dL (9-20); Calcium 10.2 mg/dL (8.4-10.2); Carbon Dioxide 28 mmol/L (22-32); Chloride 102 mmol/L (98-107); Cholesterol 123 mg/dL (140-199); Estimated Glomerular Filt Rate > 60 mL/min (>60); Glucose 164 mg/dL (80-110); HDL Cholesterol 38 mg/dL (40-60); HEMOLYSIS < 15 (0-50); LDL Cholesterol Calculated 69 mg/dL (<100); Potassium 4.4 mmol/L (3.4-5.1); Sodium 138 mmol/L (137-145); Triglycerides 82 mg/dL (35-150)
[2024-01-21 11:31] LABS: Follicle Stimulating Hormone 38.3 mIU/mL; Luteinizing Hormone 23.4 mIU/mL
== END ==
PROVIDERS: PCP Family Medicine; Referring Provider Nurse Practitioner Acute Care; Visit Provider Internal Medicine Cardiovascular Disease
DX: I10 Essential (primary) hypertension (principal); I25.10 Atherosclerotic heart disease of native coronary artery without angina pectoris; I48.20 Chronic atrial fibrillation, unspecified; R79.89 Other specified abnormal findings of blood chemistry; E78.5 Hyperlipidemia, unspecified
CPT/HCPCS: 36415; 80048; 80061; 83001; 83002; 84402; 84403

== ENCOUNTER → 2024-02-25 15:02 | Outpatient (CLI) | payer MEDICARE, OTHER, SELFPAY ==
--- NOTE | 2024-02-25 15:03 | DI.RAD.S_ITS ---
PROCEDURE: XR HAND LT MIN 3V INDICATIONS: Fall, hand pain/swelling TECHNIQUE: 3 views of the hand(s) acquired. COMPARISON: None. FINDINGS: Bones: Lateral view is not well profiled. There is a small avulsion fracture off the distal carpal row-the dorsal triquetrum Joints: Severe STT and 1st CMC degenerative change appreciated. There is moderate degenerative change in the 1st MCP and and 2nd through 5th interphalangeal joints. Soft tissues: Mild chondrocalcinosis present the TFCC IMPRESSION: Multilevel degeneration Chondrocalcinosis of the TFCC Probable avulsion fracture of the dorsal triquetrum. This is not well profiled on the lateral view. Please correlate with point tenderness in this area Dictated by: David Robles M.D. on 02/26/2024 at 9:11 Approved by: David Robles M.D. on 02/26/2024 at 9:17
--- NOTE | 2024-02-25 15:03 | DI.RAD.S_ITS ---
PROCEDURE: XR ELBOW LT MIN 3V INDICATIONS: Fall, elbow pain TECHNIQUE: 3 views of the elbow were acquired. COMPARISON: None. FINDINGS: Bones: There are no osseous abnormalities. Elbow joint: Normal in width and alignment without arthritic change. There are no effusions. Soft tissues: No soft tissue swelling, calcification or mass. IMPRESSION: Normal elbow Dictated by: David Robles M.D. on 02/26/2024 at 9:08 Approved by: David Robles M.D. on 02/26/2024 at 9:09
--- NOTE | 2024-02-25 15:03 | DI.RAD.S_ITS ---
PROCEDURE: XR WRIST LT MIN 3V INDICATIONS: Fall, wrist pain TECHNIQUE: Four views of the wrist were acquired. COMPARISON: None. FINDINGS: Bones: Lateral view shows dorsal pericarpal calcifications which likely represent ununited fractures of the dorsal lunate and triquetrum. A volar calcification also seen overlying the lunate. Joints: Moderate STT and severe 1st CMC degeneration noted. Soft tissues: Chondrocalcinosis in the TFCC. IMPRESSION: Degeneration. Probable avulsion fractures of the dorsal lunate and triquetrum. Age indeterminate Chondrocalcinosis TFCC and periarticular calcification. Please correlate with uric acid levels to exclude atypical gout Dictated by: David Robles M.D. on 02/26/2024 at 9:02 Approved by: David Robles M.D. on 02/26/2024 at 9:05
== END ==
PROVIDERS: PCP Family Medicine; Referring Provider Family Medicine; Visit Provider Family Medicine
DX: M19.032 Primary osteoarthritis, left wrist (principal); M18.12 Unilateral primary osteoarthritis of first carpometacarpal joint, left hand; M11.232 Other chondrocalcinosis, left wrist; M25.522 Pain in left elbow; M79.642 Pain in left hand; M25.532 Pain in left wrist
CPT/HCPCS: 73080; 73110; 73130

== ENCOUNTER 2024-03-15 14:40 | Outpatient (CLI) | payer MEDICARE, OTHER, SELFPAY ==
[2024-03-15] VITALS (7 sets, daily range): BP systolic 125–151; BP diastolic 61–85; PULSE 69–70; RESP 12–16; TEMP 36.2; O2SAT 96–100
--- NOTE | 2024-03-15 15:30 | DI.RAD.S_ITS ---
PROCEDURE: PAIN L INTERLAMINAR/CAUDAL INJ INDICATIONS: L4-5 translaminar KELLEY COMPARISON: , , PAIN L INTERLAMINAR/CAUDAL INJ, 09/25/2022, 15:48. FINDINGS: Fluoroscopic spot filming was performed to verify placement of spinal needles at the L4-L5 level(s), as labeled on the films. Appropriate location(s) of the needle tip(s) was confirmed by injection of iodinated contrast. L4-L5 anterolisthesis also seen. IMPRESSION: L4-L5 injection. Please see operative note for full details. Dictated by: Krishna Castillo M.D. on 03/15/2024 at 20:50 Approved by: Krishna Castillo M.D. on 03/15/2024 at 20:51
[2024-03-15] MEDS: MIDAZOLAM 2 MG/2 ML VIAL 1 MG IV (15:58)
[2024-03-15] MEDS: DEXAMETHASONE 10 MG/ML VIAL INJ (16:02)
[2024-03-15] MEDS: BETAMETHASONE 30 MG/5 ML MDV 6 MG INJ (16:02)
[2024-03-15] MEDS: iopamidoL 15 ML VIAL 3 ML INJ (16:03)
[2024-03-15] MEDS: BUPIVACAINE 0.25% (PF) VIAL 2 ML INJ (16:03)
--- NOTE | 2024-03-15 16:14 | P.PCN_ITS ---
Date/Time/Diagnoses Date of procedure: 03/15/24 Time of procedure: 16:14 Pre-procedure diagnosis: 1. HNP WITH RADICULAR FEATURES, 2. MULTILEVEL CENTRAL STENOSIS, Post-procedure diagnosis: same Procedure Notes Procedure: 1. FLUOROSCOPICALLY GUIDED CONTRAST CONTROLLED INTERLAMINAR EPIDURAL STEROID INJECTION -L4/5 Indications: Tracie is referred by Dr. Morfin for treatment of Bilateral Foraminal Stenosis R>L LE symptoms. Physician: Logan Mcintosh Total Fluoroscopy time (seconds): 7 Total sedation minutes: 10 Complications: none Procedure in detail & Post-procedure care: FINDINGS Multilevel Central Spinal Stenosis with Nerve Root Compression DESCRIPTION OF PROCEDURE Fluoroscopically guided, contrast-controlled L4/5 translaminar epidural steroid injection. Following review of allergy and review of potential side effects and complications, including, but not necessarily limited to, infection, allergic reaction, local tissue breakdown, temporary as well as permanent nerve injury, paralysis, stroke and possible , the patient indicated that the patient understood and agreed to proceed. An informed consent document was signed by the patient, witnessed by a nurse, and placed in the patient's chart. Additionally, other treatment options including modalities, medications, and physical therapy were reviewed with the patient. After review of previous anaesthesic history and IV conscious sedation the patient was deemed safe to proceed with today?s procedure with IV conscious sedation as ASA class II designation. Safety time-out was performed to confirm patient ID, procedure to be performed and site of procedure. IV sedation was accomplished with a combination of 1mg of Versed was administered by the RN after DO order, titrated to patient comfort during the course of the procedure while the patient remained responsive to all verbal commands In the prone position, following sterile prep and drape of the lumbar region, the L4/5 translaminar space was identified fluoroscopically. The skin was anesthetized via a 25-gauge, 1.5inch needle with 1% lidocaine solution. At this point, a 22-gauge short bevel spinal needle was atraumatically introduced and advanced under fluoroscopic guidance into the region of the L4/5 translaminar space. Depth was confirmed on lateral view. Radiological data, including multiple fluoroscopic views of the lumbar spine, reveal a spinal needle at the L4/5 translaminar space. Lateral views then show placement of the needle in the epidural space. Subsequent views show contrast material flowing superiorly and inferiorly in the epidural space. No vascular or intrathecal uptake is observed. At this point, using loss of resistance technique with saline and air, the epidural space was entered. This was confirmed following negative aspiration with injection of approximately 1.5cc of Isovue 200, showing excellent epidural flow without vascular or intrathecal uptake. At this point, 1cc of 1% lidocaine solution combined with 2cc or 10mg of dexamethasone and 6mg betamethasone was injected without incident. The patient tolerated the procedure well without signs or symptoms of complications prior to transfer to the recovery area continued monitoring without incident. The patient was then transferred to the recovery area where they were observed for an appropriate period of time after the injection. The patient reported a VAS score of 6 prior to the procedure and a post- procedure VAS of 0. POST OP INSTRUCTIONS The patient was provided a Pain Log to continue to record their response to the target-specific procedure prior to follow-up visit with their referring physician. Additionally, specific post-injection care instructions and a contact number to our office were provided if concerns arise regarding possible complications associated with the procedure are suspected.
== END 2024-03-15 16:33 | disposition home or self-care (01) ==
LOC: RAD 14:41
PROVIDERS: PCP Family Medicine; Referring Provider Physical Medicine & Rehabilitation; Visit Provider Physical Medicine & Rehabilitation
DX: M51.16 Intervertebral disc disorders with radiculopathy, lumbar region (principal); M48.061 Spinal stenosis, lumbar region without neurogenic claudication
CPT/HCPCS: 62323; 99152; J0702; J1100; J2250; J3490

== ENCOUNTER → 2024-04-29 09:46 | Outpatient (CLI) | payer MEDICARE, OTHER, SELFPAY ==
[2024-04-29 11:02] LABS: Prolactin 13.5 ng/mL (3.7-17.9)
== END ==
PROVIDERS: PCP Family Medicine; Referring Provider Urology; Visit Provider Urology
DX: R53.83 Other fatigue (principal)
CPT/HCPCS: 36415; 84146

== ENCOUNTER → 2024-07-05 11:36 | Outpatient (CLI) | payer MEDICARE, OTHER, SELFPAY ==
[2024-07-05 13:34] LABS: Add Manual Diff / Slide Review NO; Basophils Absolute Auto 100 /uL (0-100); Basophils Percent Auto 1.8 % (0-2); Eosinophils Absolute Auto 200 /uL (0-450); Eosinophils Percent Auto 2.7 % (2-4); Hematocrit 37.5 % (41-53); Hemoglobin 12.4 g/dL (13.5-17.5); Lymphocytes Absolute Auto 800 /uL (1100-4500); Lymphocytes Percent Auto 9.7 % (25-40); Mean Corpuscular Hemoglobin 34.3 PG (26-34); Mean Corpuscular Volume 103.9 fL (80-100); Monocytes Absolute Auto 900 /uL (0-900); Monocytes Percent Auto 11.3 % (3-14); Neutrophils Absolute Auto 6000 /uL (1500-7000); Neutrophils Percent Auto 74.5 % (50-75); Platelet Count 210 X10^3/uL (150-400); Red Blood Cell Count 3.61 X10^6/uL (4.5-5.9); Red Cell Distribution Width 14.8 % (11.6-14.8); White Blood Cell Count 8.1 X10^3/uL (4.5-11.0)
[2024-07-05 14:09] LABS: Alanine Aminotransferase 35 IU/L (<50); Albumin 3.9 g/dL (3.5-5.0); Albumin Globulin Ratio 1.9 (1.0-2.8); Alkaline Phosphatase 103 U/L (38-126); Aspartate Aminotransferase 29 IU/L (17-59); BUN Creatinine Ratio 40.5 (6-22); Bilirubin Total 1.2 mg/dL (0.2-1.3); Blood Urea Nitrogen 32 mg/dL (9-20); Calcium 9.7 mg/dL (8.4-10.2); Carbon Dioxide 26 mmol/L (22-32); Chloride 99 mmol/L (98-107); Estimated Glomerular Filt Rate > 60 mL/min (>60); Globulin 2.1 g/dL (1.7-4.1); Glucose 332 mg/dL (80-110); HEMOLYSIS < 15 (0-50); Potassium 5.2 mmol/L (3.4-5.1); Sodium 135 mmol/L (137-145)
== END ==
PROVIDERS: PCP Family Medicine; Referring Provider Physician Assistant; Visit Provider Physician Assistant
DX: L85.3 Xerosis cutis (principal)
CPT/HCPCS: 36415; 80053; 85025

== ENCOUNTER → 2024-07-11 11:53 | Outpatient (CLI) | payer MEDICARE, OTHER, SELFPAY ==
--- NOTE | 2024-07-11 11:54 | DI.RAD.S_ITS ---
PROCEDURE: XR SHOULDER RT MIN 2V INDICATIONS: Rt shoulder Pain TECHNIQUE: 3 views of the shoulder were acquired. COMPARISON: None. FINDINGS AND IMPRESSION: Mild acromioclavicular and glenohumeral degenerative changes. No displaced fracture or dislocation. No suspicious soft tissue calcifications. Partially seen right chest wall pulse generator. If there is high concern for further derangement, consider MRI evaluation or CT arthrogram. Dictated by: Krishna Castillo M.D. on 07/11/2024 at 15:12 Approved by: Krishna Castillo M.D. on 07/11/2024 at 15:42
== END ==
PROVIDERS: PCP Family Medicine; Referring Provider Family Medicine; Visit Provider Family Medicine
DX: M25.511 Pain in right shoulder (principal)
CPT/HCPCS: 73030

== ENCOUNTER 2024-07-21 12:35 | Emergency (ER) | payer MEDICARE, OTHER, SELFPAY ==
[2024-07-21 13:12] VITALS: BP 143/72; PULSE 70; RESP 17; TEMP 36.6; O2SAT 97; BMI 35.2
--- NOTE | 2024-07-21 13:35 | ED.EXTPRO ---
HPI - Extremity Problem <GRISELDA Frias - Last Filed: 07/21/24 14:26> General Chief complaint: Extremity Problem,Nontraumatic Stated complaint: Upper Right leg pain Time Seen by Provider: 07/21/24 13:14 Source: family Mode of arrival: Ambulatory History of Present Illness HPI Narrative: 84-year-old male, on Eliquis for AFib, presents to the emergency department with complaints of right hip pain x2 weeks. Patient denies any trauma to that area and does not recall what he was doing when the pain started. Patient denies any unusual loss of control of bowel or bladder or specific numbness and tingling of his right leg. Patient does endorse neuropathy with occasional tingling of bilateral legs. Patient does go to physical therapy but has not been for the last couple of weeks due to this discomfort. Patient does have an appointment with physical therapy next week. Due to his taking of Eliquis, has only been taking Tylenol for his discomfort. Patient does state that it does help a little. Related Data Home Medications Medication Instructions Recorded Confirmed apixaban 5 mg tablet (Eliquis) 5 mg PO BID 01/10/19 07/07/24 atorvastatin 40 mg tablet 40 mg PO QPM 01/10/19 07/07/24 cholecalciferol (vitamin D3) 25 1,000 unit PO DAILY 01/10/19 07/07/24 mcg (1,000 unit) capsule ipratropium bromide 42 mcg (0.06 2 spray intranasal TID 01/10/19 07/07/24 %) nasal spray metoprolol succinate 25 mg 25 mg PO DAILY 01/10/19 07/07/24 tablet,extended release 24 hr multivitamin (Multiple Vitamins 1 tab PO DAILY 01/10/19 07/07/24 tablet) acetaminophen 500 mg tablet 1,000 mg PO Q6H PRN Pain 08/06/20 07/07/24 (Tylenol Extra Strength) coenzyme Q10 75 mg capsule (Ultra 300 mg PO DAILY 08/06/20 07/07/24 CoQ10) magnesium 200 mg tablet 400 mg PO DAILY 08/06/20 07/07/24 mecobalamin (vitamin B12) 1,000 1,000 mcg sublingual DAILY 08/06/20 07/07/24 mcg disintegrating tablet,sublingual lactobacillus combination no.8 3 3,000 mmu cells PO DAILY 09/03/20 07/07/24 billion cell capsule (Adult Probiotic) [employer] DreamStation BiPAP 06/13/21 07/07/24 methenamine hippurate 1 gram tablet 1 g PO BID 02/15/24 07/07/24 ascorbate calcium (vitamin C) 500 1 g PO Q6H 04/27/24 07/07/24 mg tablet d-mannose 500 mg capsule mg PO 04/27/24 07/07/24 ferrous sulfate 325 mg (65 mg 325 mg PO DAILY 04/27/24 07/07/24 iron) tablet (Jeremías-Time) doxycycline monohydrate 100 mg mg PO 07/07/24 07/07/24 capsule Previous Rx's Medication Instructions Recorded omeprazole 20 mg capsule,delayed 20 mg PO DAILY #90 caps 06/03/23 release Disabled Parking Permit #1 ea 11/02/23 sitagliptin phosphate 50 1 tab PO BID #180 tabs 02/09/24 mg-metformin 1,000 mg tablet (Janumet) gabapentin 600 mg tablet 600 mg PO BID Neropothy pain and 03/16/24 nerves #180 tabs blood sugar diagnostic (OneTouch #100 ea 04/28/24 Verio test strips) lancets 33 gauge (OneTouch Delica #100 ea 04/29/24 Plus Lancet) triamcinolone acetonide 0.5 % 1 applic topical TID #15 grams 05/03/24 topical cream testosterone 2 pump topical DAILY #75 grams 05/09/24 duloxetine 20 mg capsule,delayed 20 mg PO .qhs #30 caps 06/20/24 release hydroxyzine HCl 25 mg tablet See Rx Instructions PO BEDTIME PRN 07/07/24 itching #60 tabs lisinopril 5 mg tablet 5 mg PO DAILY #30 tabs 07/07/24 Allergies Allergy/AdvReac Type Severity Reaction Status Date / Time latex Allergy Intermediate ITCHING Verified 07/21/24 13:15 Review of Systems <GRISELDA Frias - Last Filed: 07/21/24 14:26> Review of Systems Narrative: Narrative: See HPI. GENERAL: Denies chills, fatigue, fever, sweats. HEENT: Denies sinus pain, ear pain, sore throat, difficulty swallowing, dizziness. RESPIRATORY: Denies dyspnea, cough, wheezing, sputum. CARDIOVASCULAR: Denies chest pain, palpitations, edema. GASTROINTESTINAL: Denies nausea, vomiting, abdominal pain, diarrhea, constipation. : Denies dysuria, frequency, incontinence, hematuria, urinary retention, flank pain, loss of control of bowel or bladder. MSK: Denies weakness. Endorses right hip pain. SKIN: Denies rash, skin lesions, or pruritis. NEUROLOGIC: Denies weakness, dizziness, headache, numbness, confusion. PSYCHIATRIC: No concerning psychosocial issues. 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, flaccid Neurogenic bladder Urinary retention Facet arthropathy, lumbar Atrial fibrillation Spondylolisthesis at L4-L5 level Hypertension Diabetes Asthma Lumbar radiculopathy Obesity (BMI 30-39.9) Fatigue Excessive daytime sleepiness Obstructive sleep apnea Surgical History Anesthesia Pacemaker (05/27/16) Hx of cystoscopy (10/31/20) History of vasectomy History of transurethral resection of prostate History of penile implant (03/21/18) History of circumcision History of cholecystectomy (~2014) Family History Mother Cancer Mental health problem Father Stroke Family/Other Drug overdose Social History marital status: details: Has girlfriend who sometimes stays over household members: spouse occupational status: previously employed Smoking Status: Former smoker Tobacco: How many years used: 35 alcohol intake: former caffeine: Yes Smoking Status: Former smoker Exam <GRISELDA Frias - Last Filed: 07/21/24 14:26> Narrative Exam Narrative: Exam Narrative: GENERAL: This is a well-nourished, well-developed patient, in no acute distress HEAD: Atraumatic. Normocephalic. ENT: Nose without bleeding, purulent drainage. Airway patent. RESPIRATORY: Respiratory rate and effort are normal. MSK: Moves all extremities. Normal range of motion, no clubbing or edema. Neurovascularly intact. NEURO: A&O x 3. SKIN: Warm, dry, no rashes or lesions noted. Hip: There is no obvious deformity. There is no redness, swelling or wound. Unable to bear weight on each leg independently. Tenderness over the right greater trochanter, but no tenderness over the left greater trochanter, ischial spine or SI joint. Active flexion and extension as well as lateral excursion are limited due to pain. There is pain along the ilio-tibial band from hip to knee. Internal and external rotation is limited due to pain and age. Initial Vital Signs Initial Vital Signs: Vital Signs Temperature 98 F 07/21/24 13:12 Pulse Rate 70 07/21/24 13:12 Respiratory Rate 17 07/21/24 13:12 Blood Pressure 143/72 H 07/21/24 13:12 Pulse Oximetry 97 07/21/24 13:12 Oxygen Delivery Method Room Air 07/21/24 13:12 Reviewed <Tali Ralph MD - Last Filed: 07/22/24 08:13> Initial Vital Signs Initial Vital Signs: Vital Signs Temperature 98 F 07/21/24 13:12 Pulse Rate 70 07/21/24 13:12 Respiratory Rate 17 07/21/24 13:12 Blood Pressure 143/72 H 07/21/24 13:12 Pulse Oximetry 97 07/21/24 13:12 Oxygen Delivery Method Room Air 07/21/24 13:12 Course <GRISELDA Frias - Last Filed: 07/21/24 14:26> Orders Ordered: ED Orders 07/21/24 13:34 XR hip w pel if done RT 2V Stat Vital Signs Vital signs: Vital Signs - 8 hr 07/21/24 13:12 Temperature 98 F Pulse Rate 70 Respiratory Rate 17 Blood Pressure 143/72 H Pulse Oximetry 97 Oxygen Delivery Method Room Air <Tali Ralph MD - Last Filed: 07/22/24 08:13> Orders Ordered: ED Orders 07/21/24 13:34 XR hip w pel if done RT 2V Stat Vital Signs Vital signs: Vital Signs - 8 hr 07/21/24 13:12 Temperature 98 F Pulse Rate 70 Respiratory Rate 17 Blood Pressure 143/72 H Pulse Oximetry 97 Oxygen Delivery Method Room Air MDM - Extremity (Nontraumatic) <GRISELDA Frias - Last Filed: 07/21/24 14:26> Differential Diagnosis Differential diagnosis: Likely other (Right hip pain) Imaging Data Extremity x-ray #1: Radiologist's Impression: [address] [address] XRay Report Signed Patient: David Logan MR#: [id number] : 1940 Acct:[id number] Age/Sex: 84 / M Date of Service: 07/21/24 Loc: ED Accession Number: [id number] Procedure: XR hip w pel if done RT 2V Ordering Provider: Josue Trujillo PROCEDURE: XR HIP W PEL IF DONE RT 2V INDICATIONS: Right hip pain TECHNIQUE: AP pelvis with lateral view(s) of the right hip(s). COMPARISON: [facility], CR, XR HIP W PEL IF DONE GENNA 3TO4V, 05/13/2022, 10:54. [facility], CR, [id number] W PEL IF PERFORMED, 07/30/2017, 12:04. FINDINGS: Bones: No fractures or dislocations. Pelvic ring appears intact. Mild bilateral hip joint degeneration. No suspicious bony lesions. Degenerative changes of the visualized lower lumbar spine and pubic symphysis. Soft tissues: The visualized bowel gas pattern is normal. No suspicious soft tissue calcifications. Atherosclerotic vascular calcifications. IMPRESSION: No acute osseous abnormalities. Mild bilateral hip joint degeneration. Dictated by: Serg Guy M.D. on 07/21/2024 at 14:10 Approved by: Serg Guy M.D. on 07/21/2024 at 14:11 [facility] Narrative Medical decision making narrative: 84-year-old male with right hip pain. Assessment and HPI indicated the need for an x-ray. X-ray revealed mild bilateral hip joint degeneration but no acute osseous abnormalities. Discussed options with patient and he is agreeable with continuing with Tylenol as needed for his discomfort. Recommended patient follow up with his physical therapist next week as previously scheduled in case range of motion and or stretching exercises may alleviate his symptoms. Discussed worsening symptoms that would necessitate a return visit to the emergency department. Otherwise, patient will follow up with family doctor as needed. Patient was agreeable with course of action. Discharge Plan Departure Patient Disposition: Home Clinical Impression: Acute pain of right hip Instructions: DI for Hip Pain Activity Restrictions/Additional Instructions: *You have been diagnosed with right hip pain. Your x-ray was normal and no fractures were noted. You do have some degenerative changes, which is expected. We have discussed mild stretching may help with your pain. Recommendation is to follow up with your physical therapist next week in case [id number] or stretching exercises can help with your discomfort. Please continue to take Tylenol as needed for your discomfort, but please do not take more than 4000 mg in any 24 hour. For any worsening symptoms, please return to the emergency department. Otherwise, follow up with your family doctor or physical therapist as needed. *What to do: *Please continue to take your regular medications as directed. [ ] New medication prescriptions sent to your pharmacy: [ ] [ ] New medication written as a paper prescription [x ] No new medications given *Please follow up with your primary care provider in 2-3 days, call for an appointment. Let them know you were seen in the Emergency Department and that we ask that you be seen in follow up. We will electronically transmit a record of today's note if your PCP is in our system *If you do not have a primary care provider please contact the [facility] Resource line at [phone]. They will ask some questions about your medical history and help get you set up with a doctor in the community. ? Return to ER if you should have any new, worsening or concerning symptoms, such as worsening pain, severe headache, confusion, chest pain, difficulty breathing, fever greater than 101 F, shaking chills, persistent vomiting to the point that you cannot drink fluids, or other new or worsening symptoms. Prescriptions: No Action triamcinolone acetonide 0.5 % cream 1 applic topical TID Qty: 15 1RF doxycycline monohydrate 100 mg capsule PO lisinopril 5 mg tablet 5 mg PO DAILY Qty: 30 2RF hydroxyzine HCl 25 mg tablet See Rx Instructions PO BEDTIME PRN (Reason: itching) Qty: 60 1RF Rx Instructions: Take 1-2 tabs orally bedtime PRN; acetaminophen [Tylenol Extra Strength] 500 mg tablet 1,000 mg PO Q6H PRN (Reason: Pain) mecobalamin (vitamin B12) 1,000 mcg tablet,disintegrating 1,000 mcg sublingual DAILY Rx Instructions: place tablet under tongue and allow to dissolve for at least30 secs before swallowing Ultra CoQ10 75 mg capsule 300 mg PO DAILY magnesium 200 mg tablet 400 mg PO DAILY omeprazole 20 mg capsule,delayed release(DR/EC) 20 mg PO DAILY Qty: 90 3RF Janumet 50-1,000 mg tablet 1 tab PO BID Qty: 180 3RF gabapentin 600 mg tablet 600 mg PO BID Qty: 180 1RF Hold Instructions: Home Medication placed on hold at Doctor's office (DME) OneTouch Verio test strips Strip See Rx Instructions .ROUTE .MEDSUPPLY Qty: 100 3RF Rx Instructions: Test glucose 3-5times daily (DME) lancets [OneTouch Delica Plus Lancet] 33 gauge misc See Rx Instructions .ROUTE 3XD Qty: 100 3RF Rx Instructions: Test glucose 3-5times daily testosterone 20.25 mg/1.25 gram (1.62 %) gel in metered-dose pump 2 pump topical DAILY Qty: 75 2RF Rx Instructions: apply 1 pump amount over max area of EACH upper arm and shoulder duloxetine 20 mg capsule,delayed release(DR/EC) 20 mg PO .qhs Qty: 30 2RF Adult Probiotic 3 billion cell capsule 3,000 mmu cells PO DAILY Rx Instructions: administer with a meal methenamine hippurate 1 gram tablet 1 g PO BID (DME) Disabled Parking Permit See Rx Instructions .ROUTE .MEDSUPPLY Qty: 1 0RF Rx Instructions: Patient qualifies for disabled parking as per the attached form. multivitamin [Multiple Vitamins] tablet 1 tab PO DAILY atorvastatin 40 mg tablet 40 mg PO QPM metoprolol succinate 25 mg tablet extended release 24 hr 25 mg PO DAILY ipratropium bromide 42 mcg (0.06 %) spray,non-aerosol 2 spray NASAL TID cholecalciferol (vitamin D3) 1,000 unit capsule 1,000 unit PO DAILY Eliquis 5 mg tablet 5 mg PO BID (DME) Respironics DreamStation BiPAP See Rx Instructions .Route .MEDSUPPLY Rx Instructions: IPAP: 16 EPAP: 5 MaxPS: 5 MinPS: 5 DME: [employer] d-mannose 500 mg capsule PO ascorbate calcium (vitamin C) 500 mg tablet 1 g PO Q6H ferrous sulfate [Jeremías-Time] 325 mg (65 mg iron) tablet 325 mg PO DAILY Referrals: Lazaro Morfin MD [Primary Care Provider] - Stand Alone Forms: Patient Portal/API/Survey ED Sign-out <Tali Ralph MD - Last Filed: 07/22/24 08:13> Cosign ED Attending Cosignature Attestation: I was immediately available in the department for consultation throughout this patient's visit. Tali Ralph MD
[2024-07-21 14:42] VITALS: BP 145/75; PULSE 70; RESP 14; O2SAT 98
== END 2024-07-21 14:44 | disposition home or self-care (01) ==
PROVIDERS: Emergency Provider Registered Nurse; PCP Family Medicine
DX: M25.551 Pain in right hip (principal); Z79.01 Long term (current) use of anticoagulants
CPT/HCPCS: 73502; 99281; 99283

== ENCOUNTER → 2024-07-26 09:02 | Outpatient (CLI) | payer MEDICARE, OTHER, SELFPAY ==
[2024-07-26 09:42] LABS: Hematocrit 37.7 % (41-53)
[2024-07-26 10:15] LABS: Alanine Aminotransferase 48 IU/L (<50); Albumin Globulin Ratio 1.7 (1.0-2.8); Alkaline Phosphatase 109 U/L (38-126); Aspartate Aminotransferase 42 IU/L (17-59); BUN Creatinine Ratio 28.2 (6-22); Bilirubin Total 0.8 mg/dL (0.2-1.3); Blood Urea Nitrogen 22 mg/dL (9-20); Calcium 9.6 mg/dL (8.4-10.2); Carbon Dioxide 24 mmol/L (22-32); Chloride 101 mmol/L (98-107); Estimated Glomerular Filt Rate > 60 mL/min (>60); Globulin 2.4 g/dL (1.7-4.1); Glucose 225 mg/dL (80-110); HEMOLYSIS 16 (0-50); Potassium 4.6 mmol/L (3.4-5.1); Sodium 134 mmol/L (137-145); Total Protein 6.4 g/dL (6.3-8.2)
[2024-07-26 10:46] LABS: Prostate Specific Antigen < 0.064 ng/mL (0.10-4.00)
== END ==
PROVIDERS: PCP Family Medicine; Referring Provider Urology; Visit Provider Urology
DX: R35.89 Other polyuria (principal); R33.9 Retention of urine, unspecified; N31.2 Flaccid neuropathic bladder, not elsewhere classified; R39.9 Unspecified symptoms and signs involving the genitourinary system; D53.9 Nutritional anemia, unspecified; N31.9 Neuromuscular dysfunction of bladder, unspecified; N39.0 Urinary tract infection, site not specified; N32.0 Bladder-neck obstruction; R79.89 Other specified abnormal findings of blood chemistry
CPT/HCPCS: 36415; 80053; 84153; 84402; 84403; 85014

== ENCOUNTER 2024-08-07 09:10 | Inpatient (IN) | payer MEDICARE, OTHER, SELFPAY ==
[2024-08-07] VITALS (23 sets, daily range): BP systolic 135–178; BP diastolic 67–86; PULSE 69–71; RESP 13–22; TEMP 36.3–37.1; O2SAT 91–99; BMI 33.5; BMI 34.3
--- NOTE | 2024-08-07 09:20 | DI.CT.S_ITS ---
PROCEDURE: CT CERVICAL SPINE WO CON INDICATIONS: trauma/fall hit head on thinners TECHNIQUE: Noncontrast 3 mm thick sections acquired from the skull base to the T4 level. Sagittal and coronal reformats were then constructed. For radiation dose reduction, the following was used: automated exposure control, adjustment of mA and/or kV according to patient size. COMPARISON: None. FINDINGS: Image quality: Excellent. Bones: Diffuse osseous demineralization. No acute fracture or subluxation. Multilevel flowing anterior osteophyte formation of the cervical spine. Straightening of the cervical lordosis. Multilevel intervertebral disc height loss. Multilevel facet and uncinate arthropathy, severe at the right C2-C3 and left C7-T1 levels. Soft tissues: Prevertebral soft tissues are normal in thickness. No paravertebral hematomas. No apical pneumothoraces. Right pacemaker leads partially in the field of view. Mosaic attenuation of the lung apices, which can be seen with transient fluid overload. Likely inspissated secretions along the right posterolateral wall of the trachea () IMPRESSION: No acute CT abnormality of the cervical spine. Dictated by: Jake Zuniga M.D. on 08/07/2024 at 9:36 Approved by: Jake Zuniga M.D. on 08/07/2024 at 9:39
--- NOTE | 2024-08-07 09:20 | DI.CT.S_ITS ---
PROCEDURE: CT HEAD/BRAIN WO CON INDICATIONS: trauma/fall hit head on thinners TECHNIQUE: Noncontrast 4.5 mm thick angled axial sections acquired from the foramen magnum to the vertex, with coronal and sagittal reformats. For radiation dose reduction, the following was used: automated exposure control, adjustment of mA and/or kV according to patient size. COMPARISON: [facility], CT, CT HEAD/BRAIN WO CON, 05/11/2023, 22:52. [facility], CT, CT HEAD/BRAIN WO CON, 09/13/2022, 16:56. FINDINGS: Image quality: Diagnostic. CSF spaces: Basal cisterns are patent. No extra-axial fluid collections. The ventricles are symmetric in size and shape. 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 No intracranial bleeds or masses. There is cerebral volume loss for age, with resultant ventricular and sulcal prominence. There are periventricular and deep white matter chronic small vessel ischemic changes. There is intracranial internal carotid artery atherosclerosis. Skull and face: Calvarium and visualized facial bones appear intact, without suspicious lesions. Sinuses: Visualized sinuses and mastoids are clear. IMPRESSION: No acute intracranial pathology. Dictated by: Jake Zuniga M.D. on 08/07/2024 at 9:34 Approved by: Jake Zuniga M.D. on 08/07/2024 at 9:36
--- NOTE | 2024-08-07 09:22 | DI.RAD.S_ITS ---
PROCEDURE: XR CHEST 1V INDICATIONS: chest pain TECHNIQUE: One view of the chest was acquired. COMPARISON: [facility], CR, XR CHEST 2V, 08/27/2021, 10:05. FINDINGS: Surgical changes and devices: Right pacemaker with leads terminating in the projection of the right atrium and right ventricle Lungs and pleura: New, mild right upper lobe posterior segmental opacification. No pleural effusions or pneumothorax. Mediastinum: Mediastinal contours appear normal. Heart size is normal. Bones and chest wall: No suspicious bony lesions. Overlying soft tissues appear unremarkable. IMPRESSION: New right upper lobe posterior segmental opacification, which may represent pneumonia. Dictated by: Jake Zuniga M.D. on 08/07/2024 at 8:57 Approved by: Jake Zuniga M.D. on 08/07/2024 at 9:00
[2024-08-07 09:35] LABS: Add Manual Diff / Slide Review NO; Basophils Absolute Auto 100 /uL (0-100); Basophils Percent Auto 0.8 % (0-2); Eosinophils Absolute Auto 200 /uL (0-450); Eosinophils Percent Auto 2.5 % (2-4); Hematocrit 41.5 % (41-53); Lymphocytes Absolute Auto 1000 /uL (1100-4500); Lymphocytes Percent Auto 10.3 % (25-40); Mean Corpuscular HGB Conc 33.7 % (30-36); Mean Corpuscular Hemoglobin 33.9 PG (26-34); Mean Corpuscular Volume 100.5 fL (80-100); Monocytes Absolute Auto 1100 /uL (0-900); Monocytes Percent Auto 11.6 % (3-14); Neutrophils Absolute Auto 7100 /uL (1500-7000); Neutrophils Percent Auto 74.8 % (50-75); Platelet Count 166 X10^3/uL (150-400); Red Blood Cell Count 4.13 X10^6/uL (4.5-5.9); Red Cell Distribution Width 14.4 % (11.6-14.8); White Blood Cell Count 9.5 X10^3/uL (4.5-11.0)
[2024-08-07 09:40] LABS: INR 1.5 (0.9-1.3); Prothrombin Time 16.7 SECONDS (9.4-12.5)
[2024-08-07 09:43] LABS: PTT Partial Thromboplastin Tim 39 SECONDS (25.1-36.5)
--- NOTE | 2024-08-07 09:44 | EKG_ITS ---
[facility] [address] [address] Test Date: 2024-08-07 Pat Name: David Logan Department: [facility] Room: Gender: Male Chief Operator Hydroformer: EJ : 1940 Requested By: Order Number: [id number] Reading MD: David Reyes MD Measurements Intervals Warner Rate: 70 P: DC: QRS: -36 QRSD: 162 T: 90 QT: 474 QTc: 511 Interpretive Statements Ventricular-paced rhythm Electronically Signed On 08-07-2024 15:03:42 PDT by David Reyes MD
[2024-08-07 09:47] LABS: Alanine Aminotransferase 41 IU/L (<50); Albumin 4.6 g/dL (3.5-5.0); Albumin Globulin Ratio 1.4 (1.0-2.8); Alkaline Phosphatase 130 U/L (38-126); Aspartate Aminotransferase 44 IU/L (17-59); BUN Creatinine Ratio 41.3 (6-22); Bilirubin Total 1.9 mg/dL (0.2-1.3); Blood Urea Nitrogen 31 mg/dL (9-20); Calcium 10.1 mg/dL (8.4-10.2); Carbon Dioxide 24 mmol/L (22-32); Chloride 101 mmol/L (98-107); Creatine Kinase 242 U/L (55-170); Estimated Glomerular Filt Rate > 60 mL/min (>60); Globulin 3.2 g/dL (1.7-4.1); Glucose 212 mg/dL (80-110); HEMOLYSIS 36 (0-50); Lipase 91 U/L (23-300); Potassium 4.4 mmol/L (3.4-5.1); Sodium 135 mmol/L (137-145); Total Protein 7.8 g/dL (6.3-8.2)
[2024-08-07 09:58] LABS: NT-proBNP (BNP-Adult 18+) 1740 pg/mL (<450); Troponin I 0.048 ng/mL (0.01-0.034)
[2024-08-07 11:56] LABS: Troponin I 0.047 ng/mL (0.01-0.034)
--- NOTE | 2024-08-07 12:26 | ED.GENADULT ---
HPI - General Adult General Chief complaint: Trauma Stated complaint: GLF x3 Time Seen by Provider: 08/07/24 09:55 History of Present Illness HPI narrative: 84-year-old male with history of neuropathy, hypertension, chronic lower extremity lymphedema, chronic anticoagulation with Eliquis, uses walker baseline ambulation at home in [place] with his . He reports history of prior falls when he has been standing too long, history of neuropathy. He was standing at the bathroom area this morning when he had a ground level fall, struck his head. No loss of consciousness. No nausea or vomiting. No focal weakness to face arm or leg. No focal numbness to face arm or leg. Also has some right elbow and right mid upper arm pain without gross deformity. Denies abdominal pain. Denies pain to his upper mid lower back. Denies new pain or injury to lower extremities. Has chronic lower extremity swelling that is about the same and equal on both legs. Denies any injuries to his left arm. Denies neck pain. Related Data Home Medications Medication Instructions Recorded Confirmed apixaban 5 mg tablet (Eliquis) 5 mg PO BID 01/10/19 07/27/24 cholecalciferol (vitamin D3) 25 1,000 unit PO DAILY 01/10/19 08/07/24 mcg (1,000 unit) capsule ipratropium bromide 42 mcg (0.06 2 spray intranasal TID 01/10/19 08/07/24 %) nasal spray multivitamin (Multiple Vitamins 1 tab PO DAILY 01/10/19 08/07/24 tablet) acetaminophen 500 mg tablet 1,000 mg PO Q6H PRN Pain 08/06/20 08/07/24 (Tylenol Extra Strength) coenzyme Q10 75 mg capsule (Ultra 300 mg PO DAILY 08/06/20 08/07/24 CoQ10) magnesium 200 mg tablet 400 mg PO DAILY 08/06/20 08/07/24 lactobacillus combination no.8 3 3,000 mmu cells PO DAILY 09/03/20 08/07/24 billion cell capsule (Adult Probiotic) Respironics DreamStation BiPAP 06/13/21 07/27/24 ascorbate calcium (vitamin C) 500 1 g PO DAILY 04/27/24 08/07/24 mg tablet d-mannose 500 mg capsule 500 mg PO DAILY 04/27/24 08/07/24 ferrous sulfate 325 mg (65 mg 325 mg PO DAILY 04/27/24 08/07/24 iron) tablet (Jeremías-Time) atorvastatin 40 mg tablet 40 mg PO DAILY 08/07/24 08/07/24 duloxetine 20 mg capsule,delayed 20 mg PO ONCE PM 08/07/24 08/07/24 release furosemide 40 mg tablet 40 mg PO DAILY 08/07/24 08/07/24 hydroxyzine HCl 25 mg tablet 25 - 50 mg PO ONCE PM PRN itch 08/07/24 08/07/24 lisinopril 5 mg tablet 5 mg PO DAILY 08/07/24 08/07/24 methenamine hippurate 1 gram tablet 1 g PO BID 08/07/24 08/07/24 metoprolol succinate 25 mg 25 mg PO DAILY 08/07/24 08/07/24 tablet,extended release 24 hr potassium chloride 10 mEq 10 meq PO DAILY 08/07/24 08/07/24 tablet,extended release testosterone 1 pump topical DAILY 08/07/24 08/07/24 triamcinolone acetonide 0.1 % 1 applic topical DAILY PRN Rash 08/07/24 08/07/24 topical cream Previous Rx's Medication Instructions Recorded omeprazole 20 mg capsule,delayed 20 mg PO DAILY #90 caps 06/03/23 release Disabled Parking Permit #1 ea 11/02/23 sitagliptin phosphate 50 1 tab PO BID #180 tabs 02/09/24 mg-metformin 1,000 mg tablet (Janumet) gabapentin 600 mg tablet 600 mg PO BID Neropothy pain and 03/16/24 nerves #180 tabs blood sugar diagnostic (OneTouch #100 ea 04/28/24 Verio test strips) lancets 33 gauge (OneTouch [facility] #100 ea 04/29/24 Plus Lancet) amoxicillin 875 mg tablet 875 mg PO BID dental infection 10 08/07/24 days #20 tabs cefdinir 300 mg capsule 300 mg PO BID 10 days #20 caps 08/07/24 doxycycline hyclate 100 mg capsule 100 mg PO BID 10 days #20 caps 08/07/24 Allergies Allergy/AdvReac Type Severity Reaction Status Date / Time latex Allergy Intermediate ITCHING Verified 07/27/24 09:37 Patient History Medical History Polyuria Gait instability Sensory peripheral neuropathy Allergies Carpal tunnel syndrome Mumps Measles Chicken pox Hearing loss Cataracts, bilateral Hemorrhoid 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 Lumbar stenosis with neurogenic 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, flaccid Neurogenic bladder Urinary retention Facet arthropathy, lumbar Atrial fibrillation Spondylolisthesis at L4-L5 level Hypertension Diabetes Asthma Lumbar radiculopathy Obesity (BMI 30-39.9) Fatigue Excessive daytime sleepiness Obstructive sleep apnea Surgical History Anesthesia Pacemaker (05/27/16) Hx of cystoscopy (10/31/20) History of vasectomy History of transurethral resection of prostate History of penile implant (03/21/18) History of circumcision History of cholecystectomy (~2014) Family History Mother Cancer Mental health problem Father Stroke Family/Other Drug overdose Social History marital status: details: Has girlfriend who sometimes stays over household members: none occupational status: previously employed Smoking Status: Former smoker Tobacco: How many years used: 35 alcohol intake: former caffeine: Yes Smoking Status: Former smoker Exam Narrative Exam Narrative: GENERAL: Well-developed patient, in mild distress. HEAD: Atraumatic. Normocephalic. EYES: Pupils equal round and reactive. Extraocular motions intact. No scleral icterus. No injection or drainage. ENT: Nose without bleeding, purulent drainage. Throat without erythema, tonsillar hypertrophy or exudate. Airway patent. NECK: Trachea midline. Non tender CARDIOVASCULAR: Regular rate and rhythm without murmurs, gallops, or rubs. RESPIRATORY: Clear to auscultation. Breath sounds equal bilaterally. No wheezes, rales, or rhonchi. GASTROINTESTINAL: Abdomen soft, non-tender, nondistended. EXTREMITIES: No edema or joint tenderness. Chronic venous stasis changes both legs, symmetrical, with flaky skin no ulcerations or weeping. No cellulitis obvious. Mild tenderness to right elbow without gross deformity. Some tenderness more proximally up distal 3rd to distal half of the right humerus. No tenderness around the area of the right shoulder AC joint, anterior deltoid, superior trapezius, along the clavicle. BACK: Nontender without deformity or crepitance. No flank tenderness. NEURO: AOx3. Motor functions grossly nonfocal SKIN: No rash or erythema of visible areas Initial Vital Signs Initial Vital Signs: Vital Signs Pulse Rate 70 08/07/24 09:15 Blood Pressure 158/81 H 08/07/24 09:15 Pulse Oximetry 97 08/07/24 09:15 Course Orders Ordered: ED Orders 08/07/24 12:35 Urinalysis and Microscopic Stat Urine Culture Stat 08/07/24 13:12 XR elbow RT min 3V Stat XR forearm RT 2V Stat Acetaminophen (Acetaminophen 325 Mg Tablet) 650 mg PO Q6H PRN PRN Reason: Fever/Mild Pain (1-3) Hydrocodone Bitart/Acetaminophen (Hydrocodone/Acet 5/325 Tablet) 1 tab PO Q4H PRN PRN Reason: Pain, Moderate (4-6) Al Hydrox/Mg Hydrox/Simethicone (Mag Hydrox/Alum/Simeth 30 Ml Udc) 30 ml PO Q6HR PRN PRN Reason: Dyspepsia Apixaban (Apixaban 5 Mg Tablet) 5 mg PO BID [facility] Atorvastatin Calcium (Atorvastatin 20 Mg Tablet) 40 mg PO DAILY [facility] Doxycycline Hyclate (Doxycycline Hyclate 100 Mg Tablet) 100 mg PO BID [facility] Duloxetine HCl (Duloxetine 20 Mg Capsule) 20 mg PO QPM [facility] Last Admin: 08/07/24 18:56 Dose: 20 mg Documented By: UMANG Gabapentin (Gabapentin 600 Mg Tablet) 600 mg PO BID [facility] Hydroxyzine HCl (Hydroxyzine Hcl 25 Mg Tablet) 25 mg PO QPM PRN PRN Reason: Itching Ceftriaxone Sodium 2,000 mg/ (Sodium Chloride) 100 mls @ 200 mls/hr IV Q24H [facility] Last Infusion: 08/07/24 19:23 Dose: Infused Documented By: Admin: 08/07/24 17:55 Dose: 200 mls/hr Documented By: UMANG Ipratropium [place] (Ipratropium 0.06% Nasal 15 Ml) 2 spray NASAL TID [facility] Lisinopril (Lisinopril 5 Mg Tablet) 5 mg PO DAILY [facility] Magnesium Hydroxide (Magnesium Hydroxide 30 Ml Udc) 30 ml PO DAILY PRN PRN Reason: Constipation Magnesium Oxide (Magnesium Oxide 400 Mg Tablet) 400 mg PO DAILY [facility] Metformin HCl (Metformin Hcl 500 Mg Tablet) 1,000 mg PO 0800,1700 [facility] Metoprolol Succinate (Metoprolol Er 25 Mg Tablet) 25 mg PO DAILY [facility] Multivitamins (Multivitamin 1 Tablet) 1 tab PO DAILY [facility] Naloxone HCl (Naloxone 0.4 Mg/Ml Vial) 0.2 mg IV Q2MIN PRN PRN Reason: Opiate Reversal Non-Form: D-Mannose (500 Mg Capsule) 500 mg PO DAILY [facility] Non-Form: Methenamine Hippurate 1 Gram Tablet 1 gram PO BID [facility] Ondansetron HCl (Ondansetron 4 Mg/2 Ml Inj) 4 mg IV Q8HR PRN PRN Reason: Nausea And Vomiting Pantoprazole Sodium (Pantoprazole Dr 20 Mg Tablet) 20 mg PO DAILY [facility] Sitagliptin Phosphate (Sitagliptin 50 Mg Tablet) 50 mg PO BID [facility] Vitamin D (Cholecalciferol (Vitamin D3) 1,000 Unit Tablet) 1,000 unit PO DAILY ADRIEL Discontinued Medications Doxycycline Hyclate (Doxycycline Hyclate 100 Mg Tablet) 100 mg PO NOW ONE Stop: 08/07/24 13:17 Last Admin: 08/07/24 14:00 Dose: 100 mg Documented By: CLARK Ceftriaxone Sodium 1,000 mg/ (Sodium Chloride) 100 mls @ 200 mls/hr IV NOW ONE Stop: 08/07/24 13:17 Last Infusion: 08/07/24 14:40 Dose: Infused Documented By: Admin: 08/07/24 13:45 Dose: 200 mls/hr Documented By: CLARK Vital Signs Vital signs: Vital Signs - 8 hr 08/07/24 12:30 08/07/24 12:31 08/07/24 12:31 Pulse Rate 69 69 Respiratory Rate 18 19 Blood Pressure 145/67 H Pulse Oximetry 97 97 Oxygen Delivery Method 08/07/24 13:00 08/07/24 13:00 08/07/24 13:30 Pulse Rate 69 Respiratory Rate 16 Blood Pressure 152/73 H 166/75 H Pulse Oximetry 96 Oxygen Delivery Method 08/07/24 13:30 08/07/24 14:00 08/07/24 14:01 Pulse Rate 69 69 Respiratory Rate 16 18 Blood Pressure 135/72 Pulse Oximetry 97 98 Oxygen Delivery Method Room Air 08/07/24 14:30 08/07/24 14:31 08/07/24 14:31 Pulse Rate 69 69 Respiratory Rate 22 17 Blood Pressure 167/77 H Pulse Oximetry 91 98 Oxygen Delivery Method Medical Decision Making Lab Data Lab results reviewed: Yes I reviewed the patient's lab results. Lab results narrative: White blood cell count 9500, hemoglobin 14.0, platelets adequate. Glucose 212. BUN 31 creatinine 0.75, sodium 135 with potassium 4.4, serum CO2 24. Alkaline phosphatase slight elevation, T bili 1.9, transaminases normal. Lipase 91. Troponin 0.048 indeterminate, repeat lab 0.047 similar, not rising. 08/07/24 09:12 08/07/24 09:12 Labs: Lab Results 08/07/24 08/07/24 08/07/24 Range/Units 09:12 11:13 12:35 WBC 9.5 (4.5-11.0) X10^3/uL RBC 4.13 L (4.5-5.9) X10^6/uL Hgb 14.0 (13.5-17.5) g/dL Hct 41.5 (41-53) % MCV 100.5 H (80-100) fL MCH 33.9 (26-34) PG MCHC 33.7 (30-36) % RDW 14.4 (11.6-14.8) % Plt Count 166 (150-400) X10^3/uL Neut % (Auto) 74.8 (50-75) % Lymph % (Auto) 10.3 L (25-40) % Owen % (Auto) 11.6 (3-14) % Eos % (Auto) 2.5 (2-4) % Baso % (Auto) 0.8 (0-2) % Neut # (Auto) 7100 H (2196-7887) /uL Lymph # (Auto) 1000 L (5707-2010) /uL Owen # (Auto) 1100 H (0-900) /uL Eos # (Auto) 200 (0-450) /uL Baso # (Auto) 100 (0-100) /uL PT 16.7 H (9.4-12.5) SECONDS INR 1.5 H (0.9-1.3) APTT 39 H (25.1-36.5) SECONDS Sodium 135 L (137-145) mmol/L Potassium 4.4 (3.4-5.1) mmol/L Chloride 101 (98-107) mmol/L Carbon Dioxide 24 (22-32) mmol/L BUN 31 H (9-20) mg/dL Creatinine 0.75 (0.66-1.25) mg/dL Estimated GFR > 60 (>60) mL/min BUN/Creatinine Ratio 41.3 H (6-22) Glucose 212 H (80-110) mg/dL Calcium 10.1 (8.4-10.2) mg/dL Magnesium 2.0 (1.6-2.3) mg/dL Total Bilirubin 1.9 H (0.2-1.3) mg/dL AST 44 (17-59) IU/L ALT 41 (<50) IU/L Alkaline Phosphatase 130 H (38-126) U/L Total Creatine Kinase 242 H (55-170) U/L Troponin I 0.048 H 0.047 H (0.01-0.034) ng/mL NT-Pro-B Natriuret Pep 1740 H (<450) pg/mL Total Protein 7.8 (6.3-8.2) g/dL Albumin 4.6 (3.5-5.0) g/dL Globulin 3.2 (1.7-4.1) g/dL Albumin/Globulin Ratio 1.4 (1.0-2.8) Lipase 91 (23-300) U/L Urine Color Yellow Urine Appearance Cloudy Urine pH 6.0 (4.5-8.0) Ur Specific [place] 1.025 (1.000-1.035) Urine Protein 1+ H (Negative) Urine Glucose (UA) Trace H (Negative) g/dL Urine Ketones 1+ H (NEGATIVE) Urine Occult Blood Trace-intact (Negative) Urine Nitrate Positive H (Negative) Urine Bilirubin Negative (NEGATIVE) Urine Urobilinogen 0.2 (0.2) E.U./dL Ur Leukocyte Esterase 2+ H (NEGATIVE) Urine RBC 0-1/hpf (0-5/HPF) Urine WBC 30-100/hpf H (0-5/HPF) Ur Squamous Epith Cells None seen (0-5/HPF) Urine Bacteria Many (>30) H (None) Ur Culture Indicated? Specimen cultured Vol Urine Centrifuged 10ml (spun) Urine Dip Bedside Urine Glucose 100 mg/dl Bedside Urine Bilirubin - Negative Bedside Urine Ketone ++ 40 Urine Specific [place] 1.020 Bedside Urine Occult Blood + Bedside Urine pH 6.0 Bedside Urine Protein + 30 Bedside Urine Urobilinogen - Negative Bedside Urine Nitrite + Positive Bedside Urine Leukocytes +++ 500 Esterase Point of care testing: Urine Dip Bedside Urine Glucose 100 mg/dl Bedside Urine Bilirubin - Negative Bedside Urine Ketone ++ 40 Urine Specific [place] 1.020 Bedside Urine Occult Blood + Bedside Urine pH 6.0 Bedside Urine Protein + 30 Bedside Urine Urobilinogen - Negative Bedside Urine Nitrite + Positive Bedside Urine Leukocytes +++ 500 Esterase Imaging Data Chest x-ray: Radiologist's Impression: [address] [address] XRay Report Signed Patient: David Logan MR#: [id number] : 1940 Acct:[id number] Age/Sex: 84 / M Date of Service: 08/07/24 Loc: ED Accession Number: [id number] Procedure: XR chest 1V Ordering Provider: Dwight Garcia MD PROCEDURE: XR CHEST 1V INDICATIONS: chest pain TECHNIQUE: One view of the chest was acquired. COMPARISON: [facility], , XR CHEST 2V, 08/27/2021, 10:05. FINDINGS: Surgical changes and devices: Right pacemaker with leads terminating in the projection of the right atrium and right ventricle Lungs and pleura: New, mild right upper lobe posterior segmental opacification. No pleural effusions or pneumothorax. Mediastinum: Mediastinal contours appear normal. Heart size is normal. Bones and chest wall: No suspicious bony lesions. Overlying soft tissues appear unremarkable. IMPRESSION: New right upper lobe posterior segmental opacification, which may represent pneumonia. Dictated by: Jake Zuniga M.D. on 08/07/2024 at 8:57 Approved by: Jake Zuniga M.D. on 08/07/2024 at 9:00 CT scan - head: Radiologist's Impression: [address] [address] [address] Scan Report Signed Patient: David Logan MR#: [id number] : 1940 Acct:[id number] Age/Sex: 84 / M Date of Service: 08/07/24 Loc: ED Accession Number: [id number] Procedure: CT head/brain wo con Ordering Provider: Dwight Garcia MD PROCEDURE: CT HEAD/BRAIN WO CON INDICATIONS: trauma/fall hit head on thinners TECHNIQUE: Noncontrast 4.5 mm thick angled axial sections acquired from the foramen magnum to the vertex, with coronal and sagittal reformats. For radiation dose reduction, the following was used: automated exposure control, adjustment of mA and/or kV according to patient size. COMPARISON: [facility], CT, CT HEAD/BRAIN WO CON, 05/11/2023, 22:52. [facility], CT, CT HEAD/BRAIN WO CON, 09/13/2022, 16:56. FINDINGS: Image quality: Diagnostic. CSF spaces: Basal cisterns are patent. No extra-axial fluid collections. The ventricles are symmetric in size and shape. 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 No intracranial bleeds or masses. There is cerebral volume loss for age, with resultant ventricular and sulcal prominence. There are periventricular and deep white matter chronic small vessel ischemic changes. There is intracranial internal carotid artery atherosclerosis. Skull and face: Calvarium and visualized facial bones appear intact, without suspicious lesions. Sinuses: Visualized sinuses and mastoids are clear. IMPRESSION: No acute intracranial pathology. Dictated by: Jake Zuniga M.D. on 08/07/2024 at 9:34 Approved by: Jake Zuniga M.D. on 08/07/2024 at 9:36 CT - cervical spine: Radiologist's Impression: [place] [address] CT Scan Report Signed Patient: David Logan MR#: [id number] : 1940 Acct:[id number] Age/Sex: 84 / M Date of Service: 08/07/24 Loc: ED Accession Number: [id number] Procedure: CT cervical spine wo con Ordering Provider: Dwight Garcia MD PROCEDURE: CT CERVICAL SPINE WO CON INDICATIONS: trauma/fall hit head on thinners TECHNIQUE: Noncontrast 3 mm thick sections acquired from the skull base to the T4 level. Sagittal and coronal reformats were then constructed. For radiation dose reduction, the following was used: automated exposure control, adjustment of mA and/or kV according to patient size. COMPARISON: None. FINDINGS: Image quality: Excellent. Bones: Diffuse osseous demineralization. No acute fracture or subluxation. Multilevel flowing anterior osteophyte formation of the cervical spine. Straightening of the cervical lordosis. Multilevel intervertebral disc height loss. Multilevel facet and uncinate arthropathy, severe at the right C2-C3 and left C7-T1 levels. Soft tissues: Prevertebral soft tissues are normal in thickness. No paravertebral hematomas. No apical pneumothoraces. Right pacemaker leads partially in the field of view. Mosaic attenuation of the lung apices, which can be seen with transient fluid overload. Likely inspissated secretions along the right posterolateral wall of the trachea () IMPRESSION: No acute CT abnormality of the cervical spine. Dictated by: Jake Zuniga M.D. on 08/07/2024 at 9:36 Approved by: Jake Zuniga M.D. on 08/07/2024 at 9:39 Extremity x-ray #1: Radiologist's Impression: [address] [address] XRay Report Signed Patient: David Logan MR#: [id number] : 1940 Acct:[id number] Age/Sex: 84 / M Date of Service: 08/07/24 Loc: ED Accession Number: [id number] Procedure: XR forearm RT 2V Ordering Provider: Dwight Garcia MD PROCEDURE: XR FOREARM RT 2V INDICATIONS: GLF R mid distal humerus pain TECHNIQUE: 2 views of the forearm were acquired. COMPARISON: None. FINDINGS: Diffuse osseous demineralization. Acute, minimally displaced radial head fracture with intra-articular extension. No other fracture or dislocation. 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 Peripheral IV overlying the antecubital fossa.. IMPRESSION: No acute fracture or dislocation of the distal forearm. If there is concern for wrist fractures, consider dedicated wrist x-rays. Dictated by: Jake Zuniga M.D. on 08/07/2024 at 12:59 Approved by: Jake Zuniga M.D. on 08/07/2024 at 13:00 Extremity x-ray #2: Radiologist's Impression: [address] [address] XRay Report Signed Patient: David Logan MR#: [id number] : 1940 Acct:[id number] Age/Sex: 84 / M Date of Service: 08/07/24 Loc: ED Accession Number: [id number] Procedure: XR elbow RT min 3V Ordering Provider: Dwight Garcia MD PROCEDURE: XR ELBOW RT MIN 3V INDICATIONS: GLF R elbow pain TECHNIQUE: 3 views of the elbow were acquired. COMPARISON: None. FINDINGS: Diffuse osseous demineralization. No significant joint effusion. Acute, minimally displaced radial head fracture with intra-articular extension. Peripheral IV overlying the antecubital fossa. IMPRESSION: Acute, minimally displaced radial head fracture with intra-articular extension. Dictated by: Jake Zuniga M.D. on 08/07/2024 at 12:57 Approved by: Jake Zuniga M.D. on 08/07/2024 at 12:58 ECG Data Attestation: I personally reviewed and interpreted this ECG as follows: Interpretation: Ventricular paced rhythm with rate of 70. QRS 162. QTC 511. MDM Narrative Medical decision making narrative: 84-year-old male with history of diabetes, lumbar stenosis, incomplete bladder emptying for which he self caths, hypertension, atrial fibrillation on chronic anticoagulation, pacemaker, with peripheral neuropathy. Had fall from standing position the patient attributes to his neuropathy problems, feels that way when he standing too long, similar falls in the past. With this fall he fell backwards and struck the back of his head. No loss of consciousness but does take Eliquis chronic anticoagulation. Denied neck pain. Also has right arm elbow pain. Screening labs unremarkable. EKG shows paced rhythm. Troponin indeterminate range. CT head negative. See radiology report. CT DJD changes but no acute changes. See radiology report. Chest x-ray mentions right upper lobe infiltrate, not described as pulmonary contusion, no pneumothorax or hemothorax, no mention of any broken ribs. See radiology report. IV ceftriaxone and oral doxycycline. Radiographs of the right elbow and right humerus are still pending at this time. Right elbow x-ray suspicious for intra-articular right humeral head fracture. See radiology report. Placed in long arm splint with sling. Patient uses walker, now has right upper extremity injury that precludes this. Has pneumonia and urinary tract infection. Antibiotics initiated. Consider admission. PCP Navjot. We will query admitting physician. 1440, case discussed with cross cover physician Dr. Palma who accepts patient for admission to observation. Requests orthopedic to be consulted regarding the radial head intra-articular fracture. We will contact orthopedic surgery Dr. Buckner on-call. Case discussed with Orthopedic surgery Dr. Cruz, agrees with splint sling for now, does not anticipate surgery but can consult as needed as inpatient Critical Care Time Critical Care Time Critical Care Time: Yes Total Critical Care Time: 35 Attestation: The high probability of a clinically significant, sudden or life threatening deterioration of the [cardiopulmonary, cerebrovascular, neurologic, orthopedic, musculoskeletal, genitourinary] system(s) required my full and direct attention, intervention and personal management. The aggregate critical care time was [35] minutes. This time is in addition to time spent performing reported procedures but includes the following: [x] Data Review and interpretation [x] Patient assessment and monitoring of vital signs [x] Documentation [x] Medication orders and management Discharge Plan Departure Patient Disposition: Admitted as Observation Clinical Impression: Ground-level fall, Contusion of scalp, Contusion of right elbow, Pneumonia, Urinary tract infection, Closed fracture of head of right radius Admit Date/Time: 08/07/24 14:39 Admit Provider: Logan Palma
--- NOTE | 2024-08-07 13:12 | DI.RAD.S_ITS ---
PROCEDURE: XR ELBOW RT MIN 3V INDICATIONS: GLF R elbow pain TECHNIQUE: 3 views of the elbow were acquired. COMPARISON: None. FINDINGS: Diffuse osseous demineralization. No significant joint effusion. Acute, minimally displaced radial head fracture with intra-articular extension. Peripheral IV overlying the antecubital fossa. IMPRESSION: Acute, minimally displaced radial head fracture with intra-articular extension. Dictated by: Jake Zuniga M.D. on 08/07/2024 at 12:57 Approved by: Jake Zuniga M.D. on 08/07/2024 at 12:58
--- NOTE | 2024-08-07 13:12 | DI.RAD.S_ITS ---
PROCEDURE: XR FOREARM RT 2V INDICATIONS: GLF R mid distal humerus pain TECHNIQUE: 2 views of the forearm were acquired. COMPARISON: None. FINDINGS: Diffuse osseous demineralization. Acute, minimally displaced radial head fracture with intra-articular extension. No other fracture or dislocation. 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 Peripheral IV overlying the antecubital fossa.. IMPRESSION: No acute fracture or dislocation of the distal forearm. If there is concern for wrist fractures, consider dedicated wrist x-rays. Dictated by: Jake Zuniga M.D. on 08/07/2024 at 12:59 Approved by: Jake Zuniga M.D. on 08/07/2024 at 13:00
[2024-08-07 13:33] LABS: Appearance Urine UA CLOUDY; Bilirubin Urine UA NEGATIVE (NEGATIVE); Color Urine UA YELLOW; Glucose Urine UA TRACE g/dL (Negative); Ketones Urine UA 1+ (NEGATIVE); Leukocyte Esterase Urine UA 2+ (NEGATIVE); Nitrite Urine UA POSITIVE (Negative); Occult Blood Urine UA TRACE-INTACT (Negative); Protein Urine UA 1+ (Negative); Specific Gravity Urine UA 1.025 (1.000-1.035); Urobilinogen Urine UA 0.2 E.U./dL (0.2)
[2024-08-07 13:43] LABS: Bacteria Urine Many (>30); Culture Indicated Urine Specimen Cultured; RBC Urine 0-1/HPF (0-5/HPF); Squamous Epithelial Cell Urine None Seen (0-5/HPF); Urine Volume 10mL (spun); WBC Urine 30-100/HPF (0-5/HPF)
[2024-08-07] MEDS: cefTRIAXone 1,000 MG in SODIUM CHLORIDE 0.9% 100 ML 200 MG IV (13:45)
[2024-08-07] MEDS: DOXYCYCLINE HYCLATE 100 MG TABLET PO ×2 (14:00→20:46)
--- NOTE | 2024-08-07 14:45 | PM.PN.1 ---
Subjective Subjective Interval history: I was called this afternoon regarding David's elbow and reviewed his films. He has a minimally displaced radial head fracture which is very subtle on Xray. This would be treated nonoperatively even in a younger, healthier patient and certainly will be treated nonoperatively in David's case given his multiple medical comorbidiites. A posterior slab splint can be used for pain control to immobilize the elbow during this admission. I will plan to transition him out of this after discharge from the hospital and use a sling, or potentially nothing, for immobilization beginning in approximately a week. It will be important for him to range the elbow through a full arc of flexion and extension to avoid stiffness after the splint is removed. Should he develop any stiffness I would send him for outpatient physical therapy, but this may not end up being necessary if he is able to maintain his motion after the splint is removed. Exam Vital Signs (past 8 hours): - 08/07/24 09:15 08/07/24 09:15 08/07/24 09:17 Temperature 98.7 F Pulse Rate 70 70 Respiratory Rate 16 Blood Pressure 158/81 H 158/81 H Pulse Oximetry 97 97 Oxygen Delivery Method Room Air 08/07/24 09:33 08/07/24 09:34 08/07/24 09:34 Temperature Pulse Rate 71 71 Respiratory Rate Blood Pressure 161/76 H Pulse Oximetry 96 96 Oxygen Delivery Method 08/07/24 10:00 08/07/24 10:00 08/07/24 10:30 Temperature Pulse Rate 69 69 Respiratory Rate 13 14 Blood Pressure 178/82 H Pulse Oximetry 97 98 Oxygen Delivery Method 08/07/24 10:30 08/07/24 11:00 08/07/24 11:00 Temperature Pulse Rate 69 Respiratory Rate 17 Blood Pressure 156/86 H 164/79 H Pulse Oximetry 99 Oxygen Delivery Method 08/07/24 11:30 08/07/24 11:30 08/07/24 12:00 Temperature Pulse Rate 69 Respiratory Rate 17 Blood Pressure 159/83 H 163/82 H Pulse Oximetry 98 Oxygen Delivery Method 08/07/24 12:00 08/07/24 12:30 08/07/24 12:31 Temperature Pulse Rate 69 69 Respiratory Rate 14 18 Blood Pressure 145/67 H Pulse Oximetry 97 97 Oxygen Delivery Method 08/07/24 12:31 08/07/24 13:00 08/07/24 13:00 Temperature Pulse Rate 69 69 Respiratory Rate 19 16 Blood Pressure 152/73 H Pulse Oximetry 97 96 Oxygen Delivery Method 08/07/24 13:30 08/07/24 13:30 08/07/24 14:00 Temperature Pulse Rate 69 69 Respiratory Rate 16 18 Blood Pressure 166/75 H Pulse Oximetry 97 98 Oxygen Delivery Method Room Air 08/07/24 14:01 Temperature Pulse Rate Respiratory Rate Blood Pressure 135/72 Pulse Oximetry Oxygen Delivery Method Oxygen Delivery Method Room Air Objective Labs 08/07/24 09:12 08/07/24 09:12 Labs: Laboratory Results - last 24 hr 08/07/24 08/07/24 08/07/24 09:12 11:13 12:35 WBC 9.5 RBC 4.13 L Hgb 14.0 Hct 41.5 MCV 100.5 H MCH 33.9 MCHC 33.7 RDW 14.4 Plt Count 166 Neut % (Auto) 74.8 Lymph % (Auto) 10.3 L [place] % (Auto) 11.6 Eos % (Auto) 2.5 Baso % (Auto) 0.8 Neut # (Auto) 7100 H Lymph # (Auto) 1000 L [place] # (Auto) 1100 H Eos # (Auto) 200 Baso # (Auto) 100 PT 16.7 H INR 1.5 H APTT 39 H Sodium 135 L Potassium 4.4 Chloride 101 Carbon Dioxide 24 BUN 31 H Creatinine 0.75 Estimated GFR > 60 BUN/Creatinine Ratio 41.3 H Glucose 212 H Calcium 10.1 Magnesium 2.0 Total Bilirubin 1.9 H AST 44 ALT 41 Alkaline Phosphatase 130 H Total Creatine Kinase 242 H Troponin I 0.048 H 0.047 H NT-Pro-B Natriuret Pep 1740 H Total Protein 7.8 Albumin 4.6 Globulin 3.2 Albumin/Globulin Ratio 1.4 Lipase 91 Urine Color Yellow Urine Appearance Cloudy Urine pH 6.0 Ur Specific [place] 1.025 Urine Protein 1+ H Urine Glucose (UA) Trace H Urine Ketones 1+ H Urine Occult Blood Trace-intact Urine Nitrate Positive H Urine Bilirubin Negative Urine Urobilinogen 0.2 Ur Leukocyte Esterase 2+ H Urine RBC 0-1/hpf Urine WBC 30-100/hpf H Ur Squamous Epith Cells None seen Urine Bacteria Many (>30) H Ur Culture Indicated? 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, flaccid Neurogenic bladder Urinary retention Facet arthropathy, lumbar Atrial fibrillation Spondylolisthesis at L4-L5 level Hypertension Diabetes Asthma Lumbar radiculopathy Obesity (BMI 30-39.9) Fatigue Excessive daytime sleepiness Obstructive sleep apnea Surgical History Anesthesia Pacemaker (05/27/16) Hx of cystoscopy (10/31/20) History of vasectomy History of transurethral resection of prostate History of penile implant (03/21/18) History of circumcision History of cholecystectomy (~2014) Family History Mother Cancer Mental health problem Father Stroke Family/Other Drug overdose Social History marital status: details: Has girlfriend who sometimes stays over household members: spouse occupational status: previously employed Smoking Status: Former smoker Tobacco: How many years used: 35 alcohol intake: former caffeine: Yes Assessment & Plan Time-Based Coding :: [TOTAL MINUTES] spent with patient and on the chart (including review of chart, obtaining history, exam, reviewing outside data, placing orders, documenting exam and treatment plan, and counseling patient) on [DATE].
--- NOTE | 2024-08-07 16:57 | PC.NURSE ---
call received from [facility] regarding clarification on RX's. Advised that plan of care has changed and pt was admitted instead of being DC'd. Per Dr Garcia, please cancel all rx's that were prescribed for this visit date.
[2024-08-07] MEDS: cefTRIAXone 2,000 MG in SODIUM CHLORIDE 0.9% 100 ML 200 MG IV (17:55)
--- NOTE | 2024-08-07 18:06 | P.HP_ITS ---
History of Present Illness History of Present Illness Date Patient Seen: 08/07/24 Time Patient Seen: 18:07 Date of Onset of Symptoms: 07/24/24 Chief complaint: GLF x3 Narrative: Patient 84-year-old male seen in [facility] for Dr. Lazaro Morfin who presents for fall. Patient has been feeling weak over the last 2 weeks. No fevers no chills no cough but just has not been feeling well. Has been having intermittent issues with urinary tract infections recurrent has had increased burning in urination over the last few days. But thought maybe it was not too bad. Patient otherwise has not had any significant new change. No headaches no visual symptoms no arm weakness the patient has been having increasing leg weakness. Has been having issues when he stands to long his legs give out. He can not sit down on the toilet because if he does he can not get back off. Yesterday he was urinating and fell back landing on his right arm. Had pain but did not think it was too bad. Fell again today hitting his head. These are all falls that are more slipping. He never feels like he passes out or has any other issues. Tries to use his walker most of the time. Has been having trouble sleeping when he gets out of bed. Called 911 and because he hit his head they brought him in today. 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, flaccid Neurogenic bladder Urinary retention Facet arthropathy, lumbar Atrial fibrillation Spondylolisthesis at L4-L5 level Hypertension Diabetes Asthma Lumbar radiculopathy Obesity (BMI 30-39.9) Fatigue Excessive daytime sleepiness Obstructive sleep apnea Surgical History Anesthesia Pacemaker (05/27/16) Hx of cystoscopy (10/31/20) History of vasectomy History of transurethral resection of prostate History of penile implant (03/21/18) History of circumcision History of cholecystectomy (~2014) Family History Mother Cancer Mental health problem Father Stroke Family/Other Drug overdose Social History marital status: details: Has girlfriend who sometimes stays over household members: none occupational status: previously employed Smoking Status: Former smoker Tobacco: How many years used: 35 alcohol intake: former caffeine: Yes Meds Home Medications and Allergies Home Medications Medication Instructions Recorded Confirmed Type apixaban 5 mg tablet (Eliquis) 5 mg PO BID 01/10/19 07/27/24 History cholecalciferol (vitamin D3) 25 1,000 unit PO DAILY 01/10/19 08/07/24 History mcg (1,000 unit) capsule ipratropium bromide 42 mcg (0.06 2 spray intranasal TID 01/10/19 08/07/24 History %) nasal spray multivitamin (Multiple Vitamins 1 tab PO DAILY 01/10/19 08/07/24 History tablet) acetaminophen 500 mg tablet 1,000 mg PO Q6H PRN Pain 08/06/20 08/07/24 History (Tylenol Extra Strength) coenzyme Q10 75 mg capsule (Ultra 300 mg PO DAILY 08/06/20 08/07/24 History CoQ10) magnesium 200 mg tablet 400 mg PO DAILY 08/06/20 08/07/24 History lactobacillus combination no.8 3 3,000 mmu cells PO DAILY 09/03/20 08/07/24 History billion cell capsule (Adult Probiotic) Respironics DreamStation BiPAP 06/13/21 07/27/24 History omeprazole 20 mg capsule,delayed 20 mg PO DAILY #90 caps 06/03/23 08/07/24 Rx release Disabled Parking Permit #1 ea 11/02/23 07/27/24 Rx sitagliptin phosphate 50 1 tab PO BID #180 tabs 02/09/24 07/27/24 Rx mg-metformin 1,000 mg tablet (Janumet) gabapentin 600 mg tablet 600 mg PO BID Neropothy pain and 03/16/24 08/07/24 Rx nerves #180 tabs ascorbate calcium (vitamin C) 500 1 g PO DAILY 04/27/24 08/07/24 History mg tablet d-mannose 500 mg capsule 500 mg PO DAILY 04/27/24 08/07/24 History ferrous sulfate 325 mg (65 mg 325 mg PO DAILY 04/27/24 08/07/24 History iron) tablet (Jeremías-Time) blood sugar diagnostic (KishoreTouch #100 ea 04/28/24 07/27/24 Rx Verio test strips) lancets 33 gauge (Duyen Terrazas #100 ea 04/29/24 07/27/24 Rx Plus Lancet) amoxicillin 875 mg tablet 875 mg PO BID dental infection 10 08/07/24 Rx days #20 tabs atorvastatin 40 mg tablet 40 mg PO DAILY 08/07/24 08/07/24 History cefdinir 300 mg capsule 300 mg PO BID 10 days #20 caps 08/07/24 Rx doxycycline hyclate 100 mg capsule 100 mg PO BID 10 days #20 caps 08/07/24 Rx duloxetine 20 mg capsule,delayed 20 mg PO ONCE PM 08/07/24 08/07/24 History release furosemide 40 mg tablet 40 mg PO DAILY 08/07/24 08/07/24 History hydroxyzine HCl 25 mg tablet 25 - 50 mg PO ONCE PM PRN itch 08/07/24 08/07/24 History lisinopril 5 mg tablet 5 mg PO DAILY 08/07/24 08/07/24 History methenamine hippurate 1 gram tablet 1 g PO BID 08/07/24 08/07/24 History metoprolol succinate 25 mg 25 mg PO DAILY 08/07/24 08/07/24 History tablet,extended release 24 hr potassium chloride 10 mEq 10 meq PO DAILY 08/07/24 08/07/24 History tablet,extended release testosterone 1 pump topical DAILY 08/07/24 08/07/24 History triamcinolone acetonide 0.1 % 1 applic topical DAILY PRN Rash 08/07/24 08/07/24 History topical cream Allergies Allergy/AdvReac Type Severity Reaction Status Date / Time latex Allergy Intermediate ITCHING Verified 07/27/24 09:37 Review of Systems Review of Systems Narrative: Review of systems is negative Exam Vital Signs (past 8 hours): - 08/07/24 10:30 08/07/24 10:30 08/07/24 11:00 Temperature Pulse Rate 69 Respiratory Rate 14 Blood Pressure 156/86 H 164/79 H Pulse Oximetry 98 Oxygen Delivery Method Oxygen Flow Rate 08/07/24 11:00 08/07/24 11:30 08/07/24 11:30 Temperature Pulse Rate 69 69 Respiratory Rate 17 17 Blood Pressure 159/83 H Pulse Oximetry 99 98 Oxygen Delivery Method Oxygen Flow Rate 08/07/24 12:00 08/07/24 12:00 08/07/24 12:30 Temperature Pulse Rate 69 69 Respiratory Rate 14 18 Blood Pressure 163/82 H Pulse Oximetry 97 97 Oxygen Delivery Method Oxygen Flow Rate 08/07/24 12:31 08/07/24 12:31 08/07/24 13:00 Temperature Pulse Rate 69 69 Respiratory Rate 19 16 Blood Pressure 145/67 H Pulse Oximetry 97 96 Oxygen Delivery Method Oxygen Flow Rate 08/07/24 13:00 08/07/24 13:30 08/07/24 13:30 Temperature Pulse Rate 69 Respiratory Rate 16 Blood Pressure 152/73 H 166/75 H Pulse Oximetry 97 Oxygen Delivery Method Oxygen Flow Rate 08/07/24 14:00 08/07/24 14:01 08/07/24 14:30 Temperature Pulse Rate 69 69 Respiratory Rate 18 22 Blood Pressure 135/72 Pulse Oximetry 98 91 Oxygen Delivery Method Room Air Oxygen Flow Rate 08/07/24 14:31 08/07/24 14:31 08/07/24 15:00 Temperature 98 F Pulse Rate 69 69 Respiratory Rate 17 17 Blood Pressure 167/77 H Pulse Oximetry 98 99 Oxygen Delivery Method Room Air Oxygen Flow Rate 08/07/24 15:05 08/07/24 15:05 08/07/24 15:30 Temperature Pulse Rate 69 70 Respiratory Rate 18 20 Blood Pressure 167/79 H 150/70 H Pulse Oximetry 98 99 Oxygen Delivery Method Oxygen Flow Rate 08/07/24 15:56 08/07/24 16:15 Temperature 97.3 F L Pulse Rate 71 69 Respiratory Rate 18 17 Blood Pressure 154/72 H 143/77 H Pulse Oximetry 98 95 Oxygen Delivery Method Room Air Oxygen Flow Rate 0 Oxygen Delivery Method Room Air Oxygen Flow Rate 0 Narrative Exam Narrative: Alert elderly male interactive appropriate in no acute distress. HEENT exam shows no bruising or tenderness. Pupils are equal round shortness on light posterior pharynx is normal neck supple without adenopathy JVD or bruits lungs are clear except the right upper lobe which has rhonchi. Heart is regular rate and rhythm without murmurs clicks rubs or gallops abdomen is soft positive bowel sounds nontender extremities without cyanosis clubbing edema as right arm is in a splint good capillary refill. Neurologic exam appears normal but I did not get him up and move him. Objective Labs 08/07/24 09:12 08/07/24 09:12 Labs: Laboratory Results - last 24 hr 08/07/24 08/07/24 08/07/24 09:12 11:13 12:35 WBC 9.5 RBC 4.13 L Hgb 14.0 Hct 41.5 MCV 100.5 H MCH 33.9 MCHC 33.7 RDW 14.4 Plt Count 166 Neut % (Auto) 74.8 Lymph % (Auto) 10.3 L [place] % (Auto) 11.6 Eos % (Auto) 2.5 Baso % (Auto) 0.8 Neut # (Auto) 7100 H Lymph # (Auto) 1000 L [place] # (Auto) 1100 H Eos # (Auto) 200 Baso # (Auto) 100 PT 16.7 H INR 1.5 H APTT 39 H Sodium 135 L Potassium 4.4 Chloride 101 Carbon Dioxide 24 BUN 31 H Creatinine 0.75 Estimated GFR > 60 BUN/Creatinine Ratio 41.3 H Glucose 212 H Calcium 10.1 Magnesium 2.0 Total Bilirubin 1.9 H AST 44 ALT 41 Alkaline Phosphatase 130 H Total Creatine Kinase 242 H Troponin I 0.048 H 0.047 H NT-Pro-B Natriuret Pep 1740 H Total Protein 7.8 Albumin 4.6 Globulin 3.2 Albumin/Globulin Ratio 1.4 Lipase 91 Urine Color Yellow Urine Appearance Cloudy Urine pH 6.0 Ur Specific [place] 1.025 Urine Protein 1+ H Urine Glucose (UA) Trace H Urine Ketones 1+ H Urine Occult Blood Trace-intact Urine Nitrate Positive H Urine Bilirubin Negative Urine Urobilinogen 0.2 Ur Leukocyte Esterase 2+ H Urine RBC 0-1/hpf Urine WBC 30-100/hpf H Ur Squamous Epith Cells None seen Urine Bacteria Many (>30) H Ur Culture Indicated? Specimen cultured Vol Urine Centrifuged 10ml (spun) Assessment & Plan Assessment & Plan narrative: Urinary tract infection. Apparently recurrent. Adding to his weakness and issue. Placed on Rocephin culture done by the emergency room. Will adjust medication as needed. And follow. Urologist may need to be involved will see how he does. He has been self cathing for many years. Will try condom cath at this point if he is having difficulty and had residuals will place catheter and consult Urology. Right upper lobe pneumonia. Patient has been weak but not having definitive symptoms. Certainly can hear on exam today. Will have to follow and make sure this does not represent something more than just pneumonia. But nothing seen on CT scan will add doxycycline with the Rocephin should have good coverage. Seems unlikely for TB although that would be in this location. Bilateral leg weakness. Probable combination of previous peripheral neuropathy and peripheral weakness. Certainly puts him at significant risk. It appears as if occupational therapy needs to evaluate his home he could probably use a toilet lift and probably needs bars throughout the house but will have to see where things go. Physical therapy for now. See if we can get him stronger. We will [place] would be good if we can get him to ambulate without a walker and use just a cane. History of falls. I do not think this is cardiac or neurologic it sounds very much like it is related to his weakness but we will have to see how things go. Fall with head concussion CT negative. Completely normal now. I do not think we have to worry too much about that. History of atrial fibrillation. Resume usual meds and follow from there. Rate control seems good History of congestive heart failure systolic no treatment Barretts esophagus will continue omeprazole Code status no code GI prophylaxis on omeprazole. Disposition. My guess is he will be here a couple of days. Will get him improved on his infection hopefully a strength will improve occupational therapy physical therapy and re-evaluate. 75 minutes spent with orders discussion with the patient chart review dictation Time-Based Coding :: [TOTAL MINUTES] spent with patient and on the chart (including review of chart, obtaining history, exam, reviewing outside data, placing orders, documenting exam and treatment plan, and counseling patient) on [DATE]. Quality VTE Deep Vein Thrombosis/Pulmonary Embolism Present on Admission: No
--- NOTE | 2024-08-07 18:36 | PC.NURSE ---
Patient is alert and oriented x4, he denies pain. Patient has a splinted cast to his r.arm in a sling from where he broke is radial bone. He self caths at home, we have a condom catheter on him now and he is putting out yellow urine. He has a prn order to bladder scan and also self cath if needed. He ate well at dinner and his blood sugar was 218.
[2024-08-07] MEDS: DULOXETINE 20 MG CAPSULE PO (18:56)
[2024-08-07] MEDS: SITAGLIPTIN 50 MG TABLET PO (20:46)
[2024-08-07] MEDS: APIXABAN 5 MG TABLET PO (20:46)
[2024-08-07] MEDS: GABAPENTIN 600 MG TABLET PO (20:46)
[2024-08-08] VITALS: BP 128/76; PULSE 77; RESP 17; TEMP 36.7; O2SAT 95
[2024-08-08 00:03] VITALS: O2SAT 95
[2024-08-08] MEDS: HYDROCODONE/ACET 5/325 TABLET 1 TAB PO ×2 (00:57→21:23)
[2024-08-08 06:38] VITALS: BP 136/77; PULSE 69; RESP 17; TEMP 36.6; O2SAT 97
[2024-08-08] MEDS: ATORVASTATIN 20 MG TABLET 40 MG PO (08:19)
[2024-08-08] MEDS: MULTIVITAMIN 1 TABLET 1 TAB PO (08:19)
[2024-08-08] MEDS: METOPROLOL ER 25 MG TABLET PO (08:19)
[2024-08-08] MEDS: MAGNESIUM OXIDE 400 MG TABLET PO (08:19)
[2024-08-08] MEDS: SITAGLIPTIN 50 MG TABLET PO ×2 (08:19→21:24)
[2024-08-08] MEDS: GABAPENTIN 600 MG TABLET PO ×2 (08:19→21:24)
[2024-08-08] MEDS: CHOLECALCIFEROL (VITAMIN D3) 1,000 UNIT TABLET 1000 UNIT PO (08:20)
[2024-08-08] MEDS: APIXABAN 5 MG TABLET PO ×2 (08:20→21:24)
[2024-08-08] MEDS: PANTOPRAZOLE DR 20 MG TABLET PO (08:20)
[2024-08-08] MEDS: lisinopriL 5 MG TABLET PO (08:20)
[2024-08-08] MEDS: DOXYCYCLINE HYCLATE 100 MG TABLET PO ×2 (08:22→21:24)
[2024-08-08] MEDS: METFORMIN HCL 500 MG TABLET 1000 MG PO ×2 (08:24→18:21)
--- NOTE | 2024-08-08 08:30 | DI.CT.S_ITS ---
PROCEDURE: CT ANGIO CHEST PE PROTOCOL INDICATIONS: hypoxia worsening chest xray TECHNIQUE: After the administration of intravenous contrast, 2 mm thick sections acquired from the pulmonary apices to the posterior costophrenic angles. 3-dimensional maximum intensity projection (MIP) coronal and sagittal reformats were then acquired through the thorax. For radiation dose reduction, the following was used: automated exposure control, adjustment of mA and/or kV according to patient size. COMPARISON: [facility], , XR CHEST 1V, 08/07/2024, 9:31. FINDINGS: Image quality: Diagnostic. Pulmonary arteries: Main pulmonary artery measures 3.6 cm in diameter, which can be seen in setting of pulmonary arterial hypertension. Pulmonary arteries are normal in size, and demonstrate no intraluminal filling defects to suggest central pulmonary embolism. Lower Neck: No enlarged lymph nodes. Thyroid: No thyroid nodules which require sonographic follow up, per consensus guidelines. Axillae: No enlarged lymph nodes. Chest Wall: Cardiac pacemaker is seen with pulse generator in the right chest. Bones: Moderate glenohumeral effusion. Lungs and Pleura: No pneumothorax or pleural effusions. Mild centrilobular and paraseptal emphysema, versus peripheral traction bronchiectasis. Mild subpleural reticulations. Mild opacities are seen at the posterolateral right upper lobe in the posterior left lower lobe. Small bilateral pleural effusions. No pneumothorax. No suspicious pulmonary nodules. Heart: Heart size is moderately enlarged. No pericardial effusion. Thoracic Vessels: No aortic aneurysm. Mediastinum and [place]: No enlarged lymph nodes. Esophagus: No wall thickening. No hiatal hernia. Upper Abdomen: Mild reflux of contrast material into the hepatic veins, which may be secondary to right heart failure versus tricuspid regurgitation. Status post cholecystectomy. Visualized upper abdomen solid organs and bowel loops appear normal. IMPRESSION: 1. No acute pulmonary embolus. 2. Small peripheral right upper lobe opacity corresponds to the recent radiographic finding and may represent pneumonia or atelectasis. 3. Small bilateral pleural effusions with mild bibasilar atelectasis. 4. Mild centrilobular emphysema. Probable moderate paraseptal emphysema although superimposed mild chronic fibrotic changes are not excluded. 5. Moderate cardiomegaly. Main pulmonary artery is enlarged, which can be seen in the setting of pulmonary arterial hypertension. Approved by: Josh Dupont M.D. on 08/08/2024 at 9:18
--- NOTE | 2024-08-08 09:00 | PM.PN.IH.1 ---
Subjective Subjective Date Patient Seen: 08/08/24 Time Patient Seen: 08:10 Interval history: Assumed care from Dr Palma, covering for Dr Morfin. The pt was hospitalized due to right radius fracture, pneumonia, and UTI with generalized weakness. The pt this morning expresses no specific concerns. He denies any SOB or chest pain. He is not coughing frequently. He states that his pain is well controlled. He continues to feel weak, but has not yet worked with PT. Exam Vital Signs (past 8 hours): - 08/08/24 06:38 Temperature 97.8 F Pulse Rate 69 Respiratory Rate 17 Blood Pressure 136/77 Pulse Oximetry 97 Oxygen Flow Rate 0 Oxygen Delivery Method Room Air Oxygen Flow Rate 0 Narrative Exam Narrative: Gen: NAD, sitting comfortably in bed eating breakfast, appears well CV: RRR Resp: faint crackles right base, otherwise clear to auscultation bilaterally without wheezes Abd: soft, nontender, nondistended, normoactive bowel sounds Ext: no edema, right arm in sling Objective Labs 08/07/24 09:12 08/07/24 09:12 Labs: Laboratory Results - last 24 hr 08/07/24 08/07/24 08/07/24 09:12 11:13 12:35 WBC 9.5 RBC 4.13 L Hgb 14.0 Hct 41.5 MCV 100.5 H MCH 33.9 MCHC 33.7 RDW 14.4 Plt Count 166 Neut % (Auto) 74.8 Lymph % (Auto) 10.3 L [place] % (Auto) 11.6 Eos % (Auto) 2.5 Baso % (Auto) 0.8 Neut # (Auto) 7100 H Lymph # (Auto) 1000 L [place] # (Auto) 1100 H Eos # (Auto) 200 Baso # (Auto) 100 PT 16.7 H INR 1.5 H APTT 39 H Sodium 135 L Potassium 4.4 Chloride 101 Carbon Dioxide 24 BUN 31 H Creatinine 0.75 Estimated GFR > 60 BUN/Creatinine Ratio 41.3 H Glucose 212 H Calcium 10.1 Magnesium 2.0 Total Bilirubin 1.9 H AST 44 ALT 41 Alkaline Phosphatase 130 H Total Creatine Kinase 242 H Troponin I 0.048 H 0.047 H NT-Pro-B Natriuret Pep 1740 H Total Protein 7.8 Albumin 4.6 Globulin 3.2 Albumin/Globulin Ratio 1.4 Lipase 91 Urine Color Yellow Urine Appearance Cloudy Urine pH 6.0 Ur Specific [place] 1.025 Urine Protein 1+ H Urine Glucose (UA) Trace H Urine Ketones 1+ H Urine Occult Blood Trace-intact Urine Nitrate Positive H Urine Bilirubin Negative Urine Urobilinogen 0.2 Ur Leukocyte Esterase 2+ H Urine RBC 0-1/hpf Urine WBC 30-100/hpf H Ur Squamous Epith Cells None seen Urine Bacteria Many (>30) H Ur Culture Indicated? 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, flaccid Neurogenic bladder Urinary retention Facet arthropathy, lumbar Atrial fibrillation Spondylolisthesis at L4-L5 level Hypertension Diabetes Asthma Lumbar radiculopathy Obesity (BMI 30-39.9) Fatigue Excessive daytime sleepiness Obstructive sleep apnea Surgical History Anesthesia Pacemaker (05/27/16) Hx of cystoscopy (10/31/20) History of vasectomy History of transurethral resection of prostate History of penile implant (03/21/18) History of circumcision History of cholecystectomy (~2014) Family History Mother Cancer Mental health problem Father Stroke Family/Other Drug overdose Social History marital status: details: Has girlfriend who sometimes stays over household members: none occupational status: previously employed Smoking Status: Former smoker Tobacco: How many years used: 35 alcohol intake: former caffeine: Yes Assessment & Plan Assessment & Plan narrative: Pt is a 84yo man with DM Type 2, asthma, RUDY, neurogenic bladder with self-cath at home and recurrent UTI, peripheral neuropathy, HTN, chronic anticoagulation on Eliquis, and low testosterone who presented after ground level fall at home, sustaining right radial head fracture. Also found to have UTI and pneumonia, likely contributing to underlying weakness. 1) Right radial fracture: - Ortho consulted at admission - Continue posterior splint for 1 week, then f/u with Ortho outpatient 2) UTI: Growing gram negative bacilli. Last UTI 10/2023 petersen-sensitive E coli - Continue IV Ceftriaxone - F/U urine culture to narrow to PO antibiotics at discharge - Using condom catheter without issues while in hospital, no significant evidence of urinary retention thus far 3) Pneumonia: No hypoxia - Continue IV Ceftriaxone, Doxycycline 4) Generalized weakness: Likely due to above infections. Peripheral neuropathy contributing as well. - PT/OT consulted - Would benefit from home OT eval for additional devices such as toilet lift - Continue Gabapentin for peripheral neuropathy 5) Paroxysmal atrial fibrillation: Rate controlled - Continue Eliquis, Metoprolol 6) HTN: BP stable - Continue Lisinopril, Metoprolol, Atorvastatin 7) DM Type 2: - Continue home Metformin, Januvia DVT ppx: On Eliquis FEN: Cardiac diet Dispo: Pending return of urine cultures for narrowing of antibiotics. Likely ready for discharge tomorrow. Will await PT/OT evals for home vs rehab/SNF for additional strengthening. Time-Based Coding :: [TOTAL MINUTES] spent with patient and on the chart (including review of chart, obtaining history, exam, reviewing outside data, placing orders, documenting exam and treatment plan, and counseling patient) on [DATE]. Quality VTE Deep Vein Thrombosis/Pulmonary Embolism Present on Admission: No [employer] Data Warehouse Consultant Document charge(s): Yes Charge Codes Subsequent inpatient/observation care: [id number]
[2024-08-08 09:07] VITALS: BP 126/80; PULSE 70; RESP 17; TEMP 36.5; O2SAT 94
--- NOTE | 2024-08-08 09:15 | PC.NURSE ---
Patient just down to CT scan, he is back. Medications given and blood sugar 118 this morning. Patient has a splinted cast with amadeo wrap to his R.arm. We are keeping this elevated on pillows. Patient has a condom cath on and has yellow urine in the bag. He is resting comfortably.
[2024-08-08] MEDS: FUROSEMIDE 20 MG/2 ML VIAL IV (09:48)
--- NOTE | 2024-08-08 10:21 | OT.IP.EVAL ---
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 Hypertension Lumbar radiculopathy Lumbar stenosis with neurogenic claudication Measles Mumps Neurogenic bladder Neurogenic bladder, flaccid Obesity (BMI 30-39.9) Obstructive sleep apnea Polyuria Sensory peripheral neuropathy Spondylolisthesis at L4-L5 level Urinary retention Surgical History (Last Reviewed 08/07/24 @ 18:11 by Logan Palma MD) Anesthesia History of cholecystectomy (~2014) History of circumcision History of penile implant (03/21/18) History of transurethral resection of prostate History of vasectomy Hx of cystoscopy (10/31/20) Pacemaker (05/27/16) Occupational Therapy Inpatient Evaluation/Re-Eval M1 PT/OT-IP Prior Functional Status Start: 08/08/24 09:18 Freq: NEEDED Status: Active Protocol: Document 08/08/24 13:57 CGR (Rec: 08/08/24 14:24 CGR [id number]) Medical Review Prior Functional Status Medical History Reviewed Yes Diet/Fluid Consistency Regular Communication SALAMATOF and hearing aides not charged, GF brought the quill cleaning machine operator during eval. Mobility and Gait Mod I with rollator in the house, 3 recent falls and pt c /o light-headedness Activities of Daily Living and IADL's Pt reports I with bathing and dressing and that he drove, he has a girlfriend who visits often Social History Household Members none Living Arrangements House Number of Floors (Floors) Two Floors Number of Stairs To Enter/Railing? 1 flight, 14 steps and left rail to get to main living level Home Environment High Toilet,Walk in Shower,Tub /Shower Home Equipment Four Wheel Walker,Quad Cane, Hand Held Shower Employment Status Retired Additional Social History Comment Pt has a flat bed M2 OT-IP Current Condition Start: 08/08/24 13:57 Freq: Status: Active Protocol: Document 08/08/24 13:57 CGR (Rec: 08/08/24 14:24 CGR [id number]) Occupational Therapy Current Condition Current Condition Evaluation Date 08/08/24 Treatment Diagnosis weakness, fall, R radial head fx Diagnosis Onset Date 08/07/24 M3 OT- IP Subjective and Pain Start: 08/08/24 13:57 Freq: Status: Active Protocol: Document 08/08/24 13:57 CGR (Rec: 08/08/24 14:24 CGR [id number]) OT- Subjective Occupational Therapy Visit Type Type Initial Evaluation Visit Start Time 09:42 Visit Stop Time 10:21 Notes Pt agreeable to activity. GF enetered the room towards the begining of the session. OT Pain Assessment Pain When Pain Assessed At Rest Pain Present Pain Present Denied Pain M4 OT- IP ADL's Start: 08/08/24 13:57 Freq: Status: Active Protocol: Document 08/08/24 13:57 CGR (Rec: 08/08/24 14:24 CGR [id number]) OT [id number] Comments OT Self-Feeding Comments not meal time OT ADL-Grooming General Evaluation Grooming Ability Standby Assistance Areas Needing Assistance Retrieving/Set-up of Grooming Items,Face Washing Comments OT Grooming Comments seated in chair OT ADL-Oral Care General Eval Oral Care Ability Standby Assistance Areas of Assistance Brushing Teeth,Retrieving/Set- Up of Items Comments Oral Care Comments seated in chair OT ADL-Dressing General Eval Lower Body Dressing Ability Total Assistance Areas Needing Assistance Socks OT ADL-Toileting Comments OT Toileting Comments not performed OT ADL-Bathing Comments OT Bathing Comments not performed M5 OT- IP IADL's Start: 08/08/24 13:57 Freq: Status: Active Protocol: Document 08/08/24 13:57 CGR (Rec: 08/08/24 14:24 CGR [id number]) OT-Instrumental Activities of Daily Living Deficits IADL Deficits Identified No Deficits Home Safety Awareness Awareness of Need for Assistance at Home Good Awareness Ability to Problem Solve Emergency Able to Problem Solve Situations Medication Management Medication Management No Deficits Identified Money Management Money Management No Deficits Identified Meal Preparation Meal Preparation Comments Concerns for pts ability to perform at this time. Cash Surrender Calculator Cash Surrender Calculator Comments Concerns for pts ability to perform at this time. M6 OT- IP Functional Cognition Start: 08/08/24 13:57 Freq: Status: Active Protocol: Document 08/08/24 13:57 CGR (Rec: 08/08/24 14:24 CGR [id number]) Cognitive Factors Limiting Selfcare Function Cognitive Ability Level of Alertness Alert Patient Orientation Name,Age,Birthday,Month,Date, Year,Day of Week,Place, Situation Attention Span Ability Capable of Focused Attention, Capable of Sustained Attention Ability to Follow Commands Able to Follow Multi-Step Commands OT- Vision and Hearing OT- Hearing Assessment OT- Hearing Assessment Hearing Impaired,Use of Hearing Aids OT- Vision Assessment Visual Acuity WFL Visual Attentiveness WFL Occular Pursuits WFL Visual Convergence WFL M7 OT- IP Mobility and Balance Start: 08/08/24 13:57 Freq: Status: Active Protocol: Document 08/08/24 13:57 CGR (Rec: 08/08/24 14:24 CGR [id number]) OT- Bed Mobility Assessment Supine to Sit Supine to Sit Assist Moderate Assistance,1 Person Assistance Scooting Scooting to Edge of Bed Standby Assistance OT-Transfer Assessment Sit to and From Stand Sit to and from Stand Minimal Assistance Transfers Transfer Ability Minimal Assistance Technique Transfer Destination Bed,Chair Transfer Technique Stand Step Pivot Devices Transfer Assistive Devices Gait Belt,Trev Walker Comments Mobility Comments Pt stood with min a and tranfered to chair using the hemiwalker. OT- Balance Assessment Sitting Balance and Reactions Static Sitting Balance Ability Good Dynamic Sitting Balance Ability Good M8 OT- IP Objective Assessments Start: 08/08/24 13:57 Freq: Status: Active Protocol: Document 08/08/24 13:57 CGR (Rec: 08/08/24 14:24 CGR [id number]) OT Gross Range of Motion Upper Extremity Range of Motion Assessment Within Functional Limits OT Strength Upper Extremity Strength Assessment Right Impaired Comments Strength Comments LUE 5/5 OT- Coordination Assessment Upper Extremity Finger to Nose Test Within Functional Limits Finger Tapping Test Within Functional Limits OT-Muscle Tone Assessment Muscle Tone WNL Yes OT Sensation Assessment Edema Edema Absent M9 OT- IP Assessment and Plan Start: 08/08/24 13:57 Freq: Status: Active Protocol: Document 08/08/24 13:57 CGR (Rec: 08/08/24 14:24 CGR [id number]) OT Summary Assessment and Plan Potential Rehabilitation Potential Good Analytic Complexity at Evaluation Moderate Summary OT Impairments Range of Motion,Balance, Functional Mobility,Grooming, Dressing,Toileting,Bathing, Toilet Transfers,Shower Transfers,Activity Tolerance Progress Towards Goals Progressing Toward Goals Assessment Summary Pt presents as a moderate complexity evaluation s/p admit for fall and recurrent UTI and R radial head fx. Pt is now is a sling and splint. Pt was able to transfer to chair with min a but needed mod a for getting out of a flat bed. Pt lives alone and has a flight of stairs to enter this main living area. Pt will benefit from SNF upon discharge for ADLs and home safety with RUE fx. Goals Grooming Goal Independent Dressing Goal Independent Toileting Goal Independent Bathing Goal Independent Toilet Transfer Goal Independent Shower Transfer Goal Independent Days to Meet Goals 15 Frequency of Treatment Other frequency 5x per week Treatment Plan OT Treatment Plan ADL Training,Functional Cognition Training,Functional Mobility,Patient/Family Education,Discharge Planning Other Treatment Recommendations and Next ADLS standing, one handed ADLS Treatment Focus , donning and doffing sling. Discharge Recommendations OT Discharge Recommendations SNF Rehab Home Equipment Needs TBD Transportation Needs at Discharge Private Vehicle
--- NOTE | 2024-08-08 10:54 | PT.IIE ---
Surgical History (Last Reviewed 08/07/24 @ 18:11 by Logan Palma MD) Anesthesia History of cholecystectomy (~2014) History of circumcision History of penile implant (03/21/18) History of transurethral resection of prostate History of vasectomy Hx of cystoscopy (10/31/20) Pacemaker (05/27/16) Medical History (Last Reviewed 07/27/24 @ 10:09 by Marck Gardiner DO) Allergies Asthma Atrial fibrillation Olmedo's esophagus Carpal tunnel syndrome Cataracts, bilateral Chicken pox Degenerative joint disease (DJD) of hip Diabetes Excessive daytime sleepiness Facet arthropathy, lumbar Fatigue Gait instability Hearing loss Hemorrhoid 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 Hypertension Lumbar radiculopathy Lumbar stenosis with neurogenic claudication Measles Mumps Neurogenic bladder Neurogenic bladder, flaccid Obesity (BMI 30-39.9) Obstructive sleep apnea Polyuria Sensory peripheral neuropathy Spondylolisthesis at L4-L5 level Urinary retention Physical Therapy Inpatient Evaluation/Re-Eval M1 PT/OT-IP Prior Functional Status Start: 08/08/24 09:18 Freq: NEEDED Status: Active Protocol: Document 08/08/24 10:12 MB (Rec: 08/08/24 10:54 MB [id number]) Medical Review Prior Functional Status Medical History Reviewed Yes Diet/Fluid Consistency Regular Communication MCGRATH and hearing aides not charged Mobility and Gait Mod I with rollator in the house, 3 recent falls and pt c /o light-headedness Activities of Daily Living and IADL's Pt reports I with bathing and dressing and that he drove, he has a girlfriend who visits often Social History Household Members none Living Arrangements House Number of Floors (Floors) Two Floors Number of Stairs To Enter/Railing? 1 flight, 14 steps and left rail to get to main living level Home Equipment Four Wheel Walker,Quad Cane Employment Status Retired Additional Social History Comment See OT note for rest of home set-up as far as bed and BR set-up given pt MCGRATH and OT just got info before PT arrived for treatment, also see OT note as OT checked pt's orthostatics before assisting pt OOB M2 PT-IP Current Condition Start: 08/08/24 09:18 Freq: NEEDED Status: Active Protocol: Document 08/08/24 10:12 MB (Rec: 08/08/24 10:54 MB [id number]) Physical Therapy Current Condition Current Condition Evaluation Date 08/08/24 Treatment Diagnosis Multiple falls, right radial head fracture M3 PT-IP Subjective Start: 08/08/24 09:18 Freq: NEEDED Status: Active Protocol: Document 08/08/24 10:12 MB (Rec: 08/08/24 10:54 MB [id number]) Subjective Physical Therapy Visit Type Type Initial Evaluation Visit Start Time 10:12 Visit Stop Time 10:30 Number of NEIGHBORHOOD COORDINATOR Visits 0 Physical Therapy Visit Comments Patient Comments Pt up in chair, is MCGRATH and hearing aides not charged Therapy Pain Assessment Pain When Pain Assessed At Rest Pain Present Pain Present Denied Pain M4 PT-IP Mobility and Gait Start: 08/08/24 09:18 Freq: NEEDED Status: Active Protocol: Document 08/08/24 10:12 MB (Rec: 08/08/24 10:54 MB [id number]) PT-Transfer Assessment Sit to and From Stand Sit to and from Stand Moderate Assistance,1 Person Assistance,Use of Upper Extremities Equipment Transfer Assistive Device Gait Belt,Trev Walker Transfers Transfer Destination Chair Transfer Technique Ambulation Transfer Ability Level of Assist Moderate Assistance,1 Person Assistance,Use of Upper Extremities Comments Mobility Comments Right arm in sling and cues to push up from the left armrest with left hand and pt requires mod A to stand up and CGA to sit down. With sitting , he does not reach back for chair but his legs are touching chair before he sits. Condom cath appears to leak during gait. OT recently got pt up to chair and OT checked orthostatics and stated (-), can see OT note for details. Pt denies light-headedness getting up with PT. B LEs scaly and pt with B LE neuropathy Gait Assessment Gait Gait Assistance Required: Contact Guard Assist Distance (Feet) 25 Assistive Devices Assistive Device Gait Belt,Trve Walker Gait Deviations General Gait Pattern Flexed Trunk,Step-to Gait,Wide Based Gait Factors Limiting Gait Function Factors Limiting Gait Function Poor Balance PT-Balance Assessment Sitting Balance and Reactions Static Sitting Balance Ability Normal Dynamic Sitting Balance Ability Good Standing Balance and Reactions Static Standing Balance Ability Good Dynamic Standing Balance Ability Good Device Used Left hemiwalker M5 PT-IP Objective Assessments Start: 08/08/24 09:18 Freq: NEEDED Status: Active Protocol: Document 08/08/24 10:12 MB (Rec: 08/08/24 10:54 MB [id number]) Orientation Orientation/Cognition Level of Alertness Alert Orientation Name,Age,Birthday,Month,Date, Place,Situation Language Function Ability Hard of Hearing Safety Awareness Decreased Safety Awareness Memory Description No Deficits Noted Comments Pt is very MCGRATH, hearing aides not charged Gross Range of Motion Upper Extremity ROM Impairments Defer to OT Lower Extremity ROM Impairments B knee extension, ankle DF and great toe extension normal, did not check hips in sitting Strength Lower Extremity Strength Hip Did not check Knee B knee extension 5/5 Ankle B DF and great toe extension 5 /5 Coordination Assessment Assessment Coordination Comments NT Sensation Assessment Sensation Gross Sensation Right LE Impaired,Left LE Impaired Comments Sensation Comments Skin changes distal knees B with scaly skin, vascular appearing and history of LE neuropathy M6 PT-IP Treatment Start: 08/08/24 09:18 Freq: NEEDED Status: Active Protocol: Document 08/08/24 10:12 MB (Rec: 08/08/24 10:54 MB [id number]) Physical Therapy Treatment Education Education Provided Safety M7 PT-IP Assessment and Plan Start: 08/08/24 09:18 Freq: NEEDED Status: Active Protocol: Document 08/08/24 10:12 MB (Rec: 08/08/24 10:54 MB [id number]) PT Summary Assessment and Plan Potential Rehabilitation Potential Fair Status of Condition at Evaluation Evolving Summary Impairments Balance,Coordination,Sensation ,Bed Mobility,Transfers,Gait Assessment Summary Pt is an 84 y/o male adm to hospital after many falls and right radial fx and RUE is in sling. OT just got pt up to chair upon PT arrival and reports pt had (-) orthostatics. Pt O2 is 96% on RA and HR is 73 BPM. Pt reports light-headedness when up at home and states he thinks that is why he fell, girlfriend states later that pt has B LE neuropathy and his B LEs are red and scaly. Mod A to get up from the chair and CGA for gait with left hemiwalker that is in the room . Gait with hemiwalker is awkward and PT replaces with QC to use for future gait and pt states that he has QC at home. Recommend increased assistance and PT at d/c: home with assistance and HH vs SNF . Unsure if his girlfriend can assist him at home. Not having use of RUE will be a functional impairment and may affect gait, balance and fall risk d/t he typically uses rollator at home. Goals Bed Mobility Goal Independent Transfer Goal Independent,Cane Gait Goal Independent,Cane Gait Distance 75 Other Goals Pt will ascend and descend 7 steps with left rail ascend and no more than CGA to allow safe home entrance. Days to Meet Goals 5 Frequency of Treatment Frequency Of Treatment Once a Day Treatment Plan Physical Therapy Treatment Plan Bed Mobility Training,Transfer Training,Gait Training, Therapeutic Exercise,Balance Retraining,Discharge Planning, Hot or Cold Pack,Neuromuscular Re-ed,Coordination Retraining ,Manual Therapy Other Recommendations and Next Treatment Consider checking orthostatics Focus again, steps, gait with QC Weight Bearing Status Allowed Weight Bearing Amount (enter % RUE in sling and assume NWB or #) (%) for use on AD for gait Recommendations To Nursing Amount of Assist Needed 1 Person Assist Discharge Recommendations PT Discharge Recommendations Home vs SNF Other Discharge Recommendations If home, 24 hour assistance and HHPT Transportation Needs at Discharge Private Vehicle - PT assist x1
--- NOTE | 2024-08-08 12:34 | PC.NURSE ---
Rn started shift at noon, pt up in chair eating lunch, A&O x4, call light in reach
[2024-08-08 16:00] VITALS: BP 121/71; PULSE 72; RESP 17; TEMP 36.4; O2SAT 96
[2024-08-08] MEDS: cefTRIAXone 2,000 MG in SODIUM CHLORIDE 0.9% 100 ML 200 MG IV (16:06)
--- NOTE | 2024-08-08 16:11 | CM.DANOTE ---
Patient is an 84 yo male who was admitted INPT Status on 08/07/24 for UTI/Pneumonia/GLF. Pt has MCR and REG PPO for insurance and his PCP is Dr. Lazaro Morfin. EMR was reviewed. Per MD, pt with hx of recurrent UTIs and weakness and had GLF and hit his head with arm fx and being treated for UTI and pneumonia. Likely a couple more days. Per PT/OT, pending pt's progress recommending HH vs SNF. SW met bedside with pt and explained role and pt A&O x3 and confirms he lives at home in [place] alone but has Sig Other who stays a couple nights a week at his house and sometimes he stays with her. Pt has cane and walker at home and denies any recent admission or need for HH or SNF. SW discussed pt's current recommendation from PT/OT of HH vs SNF and pt having a really hard time being willing to allow referrals for either at this time today. Pt requesting to think of his options and to work more with PT to determine which is his preference. No referrals sent yet at this time. Plan: SW to follow closely Tues AM to determine HH vs SNF pending pt's progress and his preference for discharge plan. TAISHA Meredith Discharge Planning/Care Management CM Discharge Assessment Start: 08/08/24 16:09 Freq: Status: Active Protocol: Document 08/08/24 16:09 BF (Rec: 08/08/24 16:11 [id number]) Discharge Planning Assessment Assigned [place] Cutter TAISHA Viveros Advance Directives? Yes Advance Directives on File Yes History Provided By Patient,Significant Other, Medical Record Has Patient been admitted in last 30 No days? Prior Living Arrangements House Comment significant other goes to pt's house 4 day/week and he goes to her house 3 days/week Household Members none Type of transporation used prior to Drives own vehicle admit Independent with ADL's Yes Is patient alert and oriented? Yes Needs Assistance With Home Chores / Shopping Caregiver for Another No DME Already Rented / Owned FWW / Walker Patient/Family Preference Retirement Facility,Home with Home Health Comment SNF vs HH pending progress Barriers to Discharge No Discharge Plan Home with Home Health Transportation Arrangement Likely sig other can transport if safe for home Additional Comment Pending further PT HH vs SNF Whiteboard Updated in Patient Room with Yes name and ext. # of [place] [employer] Review Status In Process Please Provide Date Initial DC 08/08/24 Assessment Was Performed Next Review Type Continued Stay Review
[2024-08-08] MEDS: DULOXETINE 20 MG CAPSULE PO (18:22)
[2024-08-08 19:00] VITALS: BP 124/72; PULSE 70; RESP 20; TEMP 36.6; O2SAT 97
[2024-08-09] VITALS (8 sets, daily range): BP systolic 108–130; BP diastolic 52–80; PULSE 69–77; RESP 14–20; TEMP 36.5–36.9; O2SAT 92–97
[2024-08-09] MEDS: HYDROCODONE/ACET 5/325 TABLET 1 TAB PO (02:06)
[2024-08-09 05:55] LABS: Add Manual Diff / Slide Review NO; Basophils Absolute Auto 100 /uL (0-100); Eosinophils Absolute Auto 300 /uL (0-450); Eosinophils Percent Auto 3.7 % (2-4); Hematocrit 36.6 % (41-53); Hemoglobin 12.1 g/dL (13.5-17.5); Lymphocytes Absolute Auto 900 /uL (1100-4500); Lymphocytes Percent Auto 12.5 % (25-40); Mean Corpuscular Hemoglobin 33.5 PG (26-34); Mean Corpuscular Volume 101.5 fL (80-100); Monocytes Absolute Auto 1000 /uL (0-900); Monocytes Percent Auto 14.2 % (3-14); Neutrophils Absolute Auto 5000 /uL (1500-7000); Neutrophils Percent Auto 68.6 % (50-75); Platelet Count 143 X10^3/uL (150-400); Red Blood Cell Count 3.61 X10^6/uL (4.5-5.9); Red Cell Distribution Width 14.3 % (11.6-14.8); White Blood Cell Count 7.3 X10^3/uL (4.5-11.0)
[2024-08-09 06:00] LABS: Alanine Aminotransferase 34 IU/L (<50); Albumin 3.5 g/dL (3.5-5.0); Albumin Globulin Ratio 1.3 (1.0-2.8); Alkaline Phosphatase 114 U/L (38-126); Aspartate Aminotransferase 35 IU/L (17-59); BUN Creatinine Ratio 35.9 (6-22); Blood Urea Nitrogen 23 mg/dL (9-20); Calcium 9.4 mg/dL (8.4-10.2); Carbon Dioxide 23 mmol/L (22-32); Chloride 104 mmol/L (98-107); Estimated Glomerular Filt Rate > 60 mL/min (>60); Globulin 2.6 g/dL (1.7-4.1); Glucose 202 mg/dL (80-110); HEMOLYSIS 19 (0-50); Potassium 4.2 mmol/L (3.4-5.1); Sodium 136 mmol/L (137-145); Total Protein 6.1 g/dL (6.3-8.2)
--- NOTE | 2024-08-09 07:56 | P.PN_ITS ---
Subjective Subjective Date Patient Seen: 08/09/24 Time Patient Seen: 07:40 Interval history: Patient resting comfortably in bed with right arm in soft wrap sling. No specific concerns today, denies significant pain. Does not recall seeing PT yesterday but believes he met with them the day before. Exam Vital Signs (past 8 hours): - 08/09/24 12:00 08/09/24 18:00 Temperature 98.4 F 98.0 F Pulse Rate 77 70 Respiratory Rate 16 14 Blood Pressure 122/80 120/68 Pulse Oximetry 96 96 Oxygen Flow Rate 0 0 Oxygen Delivery Method Room Air Oxygen Flow Rate 0 Narrative Exam Narrative: General: Pleasant, NAD HEENT: NC/AT, EOMI, moist membranes CV: RRR, normal S1-S2, no m/g/r Resp: CTAB, comfortable WOB Abd: Soft, NTND, +BS Ext: RUE in soft wrap sling, no edema Skin: No rash or lesions noted Neuro: A&O x3, moves all extremities, no focal deficits Objective Labs 08/09/24 05:31 08/09/24 05:31 Labs: Laboratory Results - last 24 hr 08/09/24 05:31 WBC 7.3 RBC 3.61 L Hgb 12.1 L Hct 36.6 L MCV 101.5 H MCH 33.5 MCHC 33.0 RDW 14.3 Plt Count 143 L Neut % (Auto) 68.6 Lymph % (Auto) 12.5 L Burke % (Auto) 14.2 H Eos % (Auto) 3.7 Baso % (Auto) 1.0 Neut # (Auto) 5000 Lymph # (Auto) 900 L Burke # (Auto) 1000 H Eos # (Auto) 300 Baso # (Auto) 100 Sodium 136 L Potassium 4.2 Chloride 104 Carbon Dioxide 23 BUN 23 H Creatinine 0.64 L Estimated GFR > 60 BUN/Creatinine Ratio 35.9 H Glucose 202 H Calcium 9.4 Total Bilirubin 1.0 AST 35 ALT 34 Alkaline Phosphatase 114 Total Protein 6.1 L Albumin 3.5 Globulin 2.6 Albumin/Globulin Ratio 1.3 PFSH Medical History Polyuria Gait instability Sensory peripheral neuropathy Allergies Carpal tunnel syndrome Mumps Measles Chicken pox Hearing loss Cataracts, bilateral Hemorrhoid 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 Lumbar stenosis with neurogenic 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, flaccid Neurogenic bladder Urinary retention Facet arthropathy, lumbar Atrial fibrillation Spondylolisthesis at L4-L5 level Hypertension Diabetes Asthma Lumbar radiculopathy Obesity (BMI 30-39.9) Fatigue Excessive daytime sleepiness Obstructive sleep apnea Surgical History Anesthesia Pacemaker (05/27/16) Hx of cystoscopy (10/31/20) History of vasectomy History of transurethral resection of prostate History of penile implant (03/21/18) History of circumcision History of cholecystectomy (~2014) Family History Mother Cancer Mental health problem Father Stroke Family/Other Drug overdose Social History marital status: details: Has girlfriend who sometimes stays over household members: none occupational status: previously employed Smoking Status: Former smoker Tobacco: How many years used: 35 alcohol intake: former caffeine: Yes Assessment & Plan Assessment & Plan narrative: 84-year-old male with T2DM, asthma, RUDY, neurogenic bladder with self-cath at home and recurrent UTI, peripheral neuropathy, HTN, chronic anticoagulation on Eliquis, and low testosterone who was admitted after GLF at home, sustaining right radial head fracture. Also found to have UTI and pneumonia, likely contributing to underlying weakness. 1) Right radial fracture: - Ortho consulted at admission - Continue posterior splint for 1 week, then f/u with Ortho outpatient 2) UTI: Culture grew petersen-sensitive E coli. - Augmentin BID (08/09- ), s/p IV ceftriaxone () - Using condom catheter without issues while in hospital, no significant evidence of urinary retention thus far 3) Pneumonia: No hypoxia. - Continue doxycycline BID (08/07- ), s/p IV ceftriaxone () 4) Generalized weakness: Likely due to above infections. Peripheral neuropathy contributing as well. - PT/OT consulted - Would benefit from home OT eval for additional devices such as toilet lift - Continue gabapentin for peripheral neuropathy 5) Paroxysmal atrial fibrillation: Rate controlled - Continue Eliquis, metoprolol 6) HTN: BP stable - Continue Lisinopril, Metoprolol, Atorvastatin 7) T2DM: - Continue home metformin, Januvia DVT ppx: On Eliquis FEN: Cardiac diet Dispo: Home tomorrow pending PT/OT evals for home vs rehab/SNF for additional strengthening. Time-Based Coding :: 25 minutes spent with patient and on the chart (including review of chart, obtaining history, exam, reviewing outside data, placing orders, documenting exam and treatment plan, and counseling patient) on 08/09/2024. Quality VTE Deep Vein Thrombosis/Pulmonary Embolism Present on Admission: No [facility] [employer] Library Director Document charge(s): Yes Charge Codes Subsequent inpatient/observation care: [id number]
[2024-08-09] MEDS: CHOLECALCIFEROL (VITAMIN D3) 1,000 UNIT TABLET 1000 UNIT PO (09:19)
[2024-08-09] MEDS: APIXABAN 5 MG TABLET PO ×2 (09:19→20:54)
[2024-08-09] MEDS: METOPROLOL ER 25 MG TABLET PO (09:19)
[2024-08-09] MEDS: MAGNESIUM OXIDE 400 MG TABLET PO (09:19)
[2024-08-09] MEDS: ATORVASTATIN 20 MG TABLET 40 MG PO (09:20)
[2024-08-09] MEDS: GABAPENTIN 600 MG TABLET PO ×2 (09:20→20:54)
[2024-08-09] MEDS: DOXYCYCLINE HYCLATE 100 MG TABLET PO ×2 (09:20→20:54)
[2024-08-09] MEDS: PANTOPRAZOLE DR 20 MG TABLET PO (09:20)
[2024-08-09] MEDS: lisinopriL 5 MG TABLET PO (09:20)
[2024-08-09] MEDS: MULTIVITAMIN 1 TABLET 1 TAB PO (09:20)
[2024-08-09] MEDS: SITAGLIPTIN 50 MG TABLET PO ×2 (09:20→20:54)
[2024-08-09] MEDS: AMOXICILLIN/CLAV 875/125 MG 1 TAB PO ×2 (09:20→20:54)
[2024-08-09] MEDS: METFORMIN HCL 500 MG TABLET 1000 MG PO ×2 (09:22→17:17)
--- NOTE | 2024-08-09 10:05 | PT.IPTN ---
Current Diagnoses Urinary tract infection, site not specified (08/07/24) Physical Therapy Treatment Note M2 PT-IP Current Condition Start: 08/08/24 09:18 Freq: NEEDED Status: Active Protocol: Document 08/08/24 10:12 MB (Rec: 08/08/24 10:54 MB [id number]) Physical Therapy Current Condition Current Condition Evaluation Date 08/08/24 Treatment Diagnosis Multiple falls, right radial head fracture M3 PT-IP Subjective Start: 08/08/24 09:18 Freq: NEEDED Status: Active Protocol: Document 08/09/24 09:40 KS (Rec: 08/09/24 12:17 KS [id number]) Subjective Physical Therapy Visit Type Type Treatment Note Visit Start Time 09:40 Visit Stop Time 10:05 Number of NUCLEAR SECURITY OFFICER Visits 1 Physical Therapy Visit Comments Patient Comments Pt in bed upon arrival. M4 PT-IP Mobility and Gait Start: 08/08/24 09:18 Freq: NEEDED Status: Active Protocol: Document 08/09/24 09:40 KS (Rec: 08/09/24 12:17 KS [id number]) PT-Bed Mobility Assessment Supine to Sit Supine to Sit Moderate Assistance,1 Person Assistance,Head of Bed Elevated Scooting Scooting to Edge of Bed Maximum Assistance Scooting Up and Down in Bed Maximum Assistance PT-Transfer Assessment Sit to and From Stand Sit to and from Stand Moderate Assistance,1 Person Assistance,Use of Upper Extremities Equipment Transfer Assistive Device Gait Belt,Large Based Quad Cane Transfers Transfer Destination Bed Transfer Technique sit<>stand Transfer Ability Level of Assist Moderate Assistance,1 Person Assistance,Use of Upper Extremities Comments Mobility Comments Pt in bed upon arrival, agreeable to work w/ PT. Mod A for sup<>sit, Max A for scooting EOB. Repositioned sling when pt sitting. Mod A for sit<>stand w/ QC. Pt leaning heavily against bed for support while standing and unable to step away from bed and maintain balance. Pt reports dizziness an sits down . INSULATION WORKER arrived for assistance. Pt completed second sit<>stand and again unable to maintain balance w/ QC and 2PA without leaning against bed. Pt intially agreeable to transfer to chair, but due to him being unable to maintain standing balance and increased dizziness when standing, pt went back to bed. BP 122/72 sitting EOB. Max A x2 for sit< >Sup and scooting up in bed. Gait Assessment Factors Limiting Gait Function Factors Limiting Gait Function Poor Balance Comments Gait Comments Unable to ambulate today - try platform walker next tx. PT-Balance Assessment Sitting Balance and Reactions Static Sitting Balance Ability Fair Dynamic Sitting Balance Ability Fair Standing Balance and Reactions Static Standing Balance Ability Poor Dynamic Standing Balance Ability Poor Device Used LBQC M5 PT-IP Objective Assessments Start: 08/08/24 09:18 Freq: NEEDED Status: Active Protocol: Document 08/08/24 10:12 MB (Rec: 08/08/24 10:54 MB [id number]) Orientation Orientation/Cognition Level of Alertness Alert Orientation Name,Age,Birthday,Month,Date, Place,Situation Language Function Ability Hard of Hearing Safety Awareness Decreased Safety Awareness Memory Description No Deficits Noted Comments Pt is very [place], hearing aides not charged Gross Range of Motion Upper Extremity ROM Impairments Defer to OT Lower Extremity ROM Impairments B knee extension, ankle DF and great toe extension normal, did not check hips in sitting Strength Lower Extremity Strength Hip Did not check Knee B knee extension 5/5 Ankle B DF and great toe extension 5 /5 Coordination Assessment Assessment Coordination Comments NT Sensation Assessment Sensation Gross Sensation Right LE Impaired,Left LE Impaired Comments Sensation Comments Skin changes distal knees B with scaly skin, vascular appearing and history of LE neuropathy M6 PT-IP Treatment Start: 08/08/24 09:18 Freq: NEEDED Status: Active Protocol: Document 08/09/24 09:40 KS (Rec: 08/09/24 12:17 KS [id number]) Physical Therapy Treatment Exercises Exercises Ankle Pumps,Gluteal Sets,Quad Sets,Heel Slides Education Education Provided Safety M7 PT-IP Assessment and Plan Start: 08/08/24 09:18 Freq: NEEDED Status: Active Protocol: Document 08/09/24 09:40 KS (Rec: 08/09/24 12:17 KS [id number]) PT Summary Assessment and Plan Potential Rehabilitation Potential Fair Summary Impairments Balance,Coordination,Sensation ,Bed Mobility,Transfers,Gait Progress Towards Goals Slow Progress - Other Assessment Summary Pt w/ decreased balance today and unable to progress ambulation due to poor balance , weakness, and dizziness when standing. Mod A for sup<>sit and sit<>stand, Max A x2 for scooting up in bed. Pt does not feel safe to go home and at this time would benefit from SNF to improve strength and functional mobility. Goals Bed Mobility Goal Independent Transfer Goal Independent,Cane Gait Goal Independent,Cane Gait Distance 75 Other Goals Pt will ascend and descend 7 steps with left rail ascend and no more than CGA to allow safe home entrance. Days to Meet Goals 5 Frequency of Treatment Frequency Of Treatment Once a Day Treatment Plan Physical Therapy Treatment Plan Bed Mobility Training,Transfer Training,Gait Training, Therapeutic Exercise,Balance Retraining,Discharge Planning, Hot or Cold Pack,Neuromuscular Re-ed,Coordination Retraining ,Manual Therapy Other Recommendations and Next Treatment try platform walker? Pt uses Focus FWW at baseline. Weight Bearing Status Allowed Weight Bearing Amount (enter % RUE in sling and assume NWB or #) (%) for use on AD for gait Recommendations To Nursing Amount of Assist Needed 1 Person Assist Discharge Recommendations PT Discharge Recommendations SNF Rehab Other Discharge Recommendations If home, 24 hour assistance and HHPT Transportation Needs at Discharge Private Vehicle - PT assist x2
--- NOTE | 2024-08-09 10:41 | CM.DPC ---
Dr Morfin called and said this patient is ready to be discharged to SNF or HH as of today. Patient is being switched to oral antibiotics. PT also spoke to me regarding this patient. PT strongly recommends SNF rather than HH due to very poor balance. I discussed this with the patient. He agreed with a short stay at a SNF to heal as fast as possible. Patient agreed with being referred to [facility]. Referral sent. I placed a call to Marcia at [facility] to notify her of the referral. Insurance will not cover SNF until tomorrow at the soonest since admission was 08/07.
--- NOTE | 2024-08-09 11:22 | OT.IP.TRT ---
Current Diagnoses Urinary tract infection, site not specified (08/07/24) Occupational Therapy Treatment Note M2 OT-IP Current Condition Start: 08/08/24 13:57 Freq: Status: Active Protocol: Document 08/08/24 13:57 CGR (Rec: 08/08/24 14:24 CGR [id number]) Occupational Therapy Current Condition Current Condition Evaluation Date 08/08/24 Treatment Diagnosis weakness, fall, R radial head fx Diagnosis Onset Date 08/07/24 M3 OT- IP Subjective and Pain Start: 08/08/24 13:57 Freq: Status: Active Protocol: Document 08/09/24 11:22 [facility] (Rec: 08/09/24 11:31 [facility] [id number]) OT- Subjective Occupational Therapy Visit Type Type Treatment Note Visit Start Time 10:58 Visit Stop Time 11:22 Occupational Therapy Visit Comments Patient Comments Pt agreed to get up to go over how to blaine/doff the sling. Patient/Caregiver Goals TO get better and open to go to skilled rehab. OT Pain Assessment Pain When Pain Assessed At Rest Pain Present Pain Present Denied Pain M4 OT- IP ADL's Start: 08/08/24 13:57 Freq: Status: Active Protocol: Document 08/09/24 11:22 [facility] (Rec: 08/09/24 11:31 [facility] [id number]) OT [id number] Comments OT Self-Feeding Comments not meal time OT ADL-Grooming Comments OT Grooming Comments Not performed. OT ADL-Oral Care Comments Oral Care Comments NOt performed. OT ADL-Dressing General Eval Upper Body Dressing Ability Maximum Assistance Comments OT Dressing Comments Educated pt how to blaine/doff the sling. Pt still having difficulties and will benefit from assist. OT ADL-Toileting Comments OT Toileting Comments not performed OT ADL-Bathing Comments OT Bathing Comments Pt states will probably sponge bath initially. M5 OT- IP IADL's Start: 08/08/24 13:57 Freq: Status: Active Protocol: Document 08/08/24 13:57 CGR (Rec: 08/08/24 14:24 CGR [id number]) OT-Instrumental Activities of Daily Living Deficits IADL Deficits Identified No Deficits Home Safety Awareness Awareness of Need for Assistance at Home Good Awareness Ability to Problem Solve Emergency Able to Problem Solve Situations Medication Management Medication Management No Deficits Identified Money Management Money Management No Deficits Identified Meal Preparation Meal Preparation Comments Concerns for pts ability to perform at this time. Assistant Child Care Teacher Assistant Child Care Teacher Comments Concerns for pts ability to perform at this time. M6 OT- IP Functional Cognition Start: 08/08/24 13:57 Freq: Status: Active Protocol: Document 08/09/24 11:22 [facility] (Rec: 08/09/24 11:31 [facility] [id number]) Cognitive Factors Limiting Selfcare Function Cognitive Comments Cognitive Assessment Comments Pt able to follow commands for ADL and mobility needs. M7 OT- IP Mobility and Balance Start: 08/08/24 13:57 Freq: Status: Active Protocol: Document 08/09/24 11:22 [facility] (Rec: 08/09/24 11:31 [facility] [id number]) OT- Bed Mobility Assessment Supine to Sit Supine to Sit Assist Maximum Assistance,1 Person Assistance,Head of Bed Elevated,Bedrails Sit to Supine Sit to Supine Assist Maximum Assistance,1 Person Assistance OT- Balance Assessment Sitting Balance and Reactions Static Sitting Balance Ability Good Dynamic Sitting Balance Ability Fair M8 OT- IP Objective Assessments Start: 08/08/24 13:57 Freq: Status: Active Protocol: Document 08/08/24 13:57 CGR (Rec: 08/08/24 14:24 CGR [id number]) OT Gross Range of Motion Upper Extremity Range of Motion Assessment Within Functional Limits OT Strength Upper Extremity Strength Assessment Right Impaired Comments Strength Comments RASTAE 5/5 OT- Coordination Assessment Upper Extremity Finger to Nose Test Within Functional Limits Finger Tapping Test Within Functional Limits OT-Muscle Tone Assessment Muscle Tone WNL Yes OT Sensation Assessment Edema Edema Absent M9 OT- IP Assessment and Plan Start: 08/08/24 13:57 Freq: Status: Active Protocol: Document 08/09/24 11:22 [facility] (Rec: 08/09/24 11:31 [facility] [id number]) OT Summary Assessment and Plan Potential Rehabilitation Potential Good Analytic Complexity at Evaluation Moderate Summary OT Impairments Range of Motion,Balance, Functional Mobility,Grooming, Dressing,Toileting,Bathing, Toilet Transfers,Shower Transfers,Activity Tolerance Progress Towards Goals Progressing Toward Goals Assessment Summary Pt needing MAXA X to get out of bed today and having more difficulty with his dynamic balance. Able to go over sling management and how to blaine/ doff the sling with pt. Pt to go to skilled rehab when medically stable. Goals Grooming Goal Independent Dressing Goal Independent Toileting Goal Independent Bathing Goal Independent Toilet Transfer Goal Independent Shower Transfer Goal Independent Days to Meet Goals 15 Frequency of Treatment Other frequency 5x per week Treatment Plan OT Treatment Plan ADL Training,Functional Cognition Training,Functional Mobility,Patient/Family Education,Discharge Planning Other Treatment Recommendations and Next ADLS standing, one handed ADLS Treatment Focus , donning and doffing sling. Discharge Recommendations OT Discharge Recommendations SNF Rehab Transportation Needs at Discharge Wheelchair/Cabulance
[2024-08-09] MEDS: DULOXETINE 20 MG CAPSULE PO (17:17)
[2024-08-10] VITALS: BP 131/77; PULSE 70; RESP 19; TEMP 36.7; O2SAT 97
[2024-08-10 06:00] VITALS: BP 143/80; PULSE 86; RESP 19; TEMP 36.8; O2SAT 94
--- NOTE | 2024-08-10 07:58 | PM.DS.IH.1 ---
History of Present Illness History of Present Illness Date Patient Seen: 08/10/24 Time Patient Seen: 07:58 Chief complaint: GLF x3 Narrative: 84-year-old male with history of T2DM, neuropathy, hypertension, incomplete bladder emptying requiring self catheterization, chronic lower extremity lymphedema, chronic AFib anticoagulated with Eliquis. Presented to ER after falling backward in his bathroom during which struck his head. No LOC, N/V, focal weakness/numbness to the arm leg. Labs in ER generally unremarkable, EKG showed paced rhythm, troponin indeterminate range. CT head was negative, CT neck showed degenerative disease but no acute fracture. UA consistent with recurrent UTI, CXR notable for right upper lobe infiltrate suspicious for pneumonia. Started on IV ceftriaxone and oral doxycycline. Right elbow x-ray demonstrated intra-articular right humeral fracture. Admitted for observation in orthopedic consultation. Discharge Providers Provider Date of admission: 08/07/24 14:39 Discharge Date: 08/10/24 Primary care physician: Lazaro Morfin MD Consults: 08/07/24 18:05 Consult to Occupational Therapy Evaluate & Treat Comment: Physician Instructions: Evaluate and treat Consult to Physical Therapy Evaluate & Treat Comment: Physician Instructions: Evaluate and Treat Discharge provider: Lazaro Morfin MD Summary Hospital Course Discharge Diagnosis: #right radial fracture #UTI #pneumonia #generalize weakness #ground level fall #paroxysmal AFib #HTN #T2DM Hospital Course: The admitted for observation and antibiotic treatment for UTI as well as suspected right upper lobe pneumonia. Orthopedics consulted for right radial head fracture, recommended nonsurgical treatment with splinting and outpatient follow-up. Remained afebrile, converted to p.o. Augmentin with continuation of doxycycline on hospital day 3. PT/OT with strong recommendation for discharge to SNF for rehabilitation due to significant weakness. Discharged to [facility]. Status at Discharge Cognitive/behavioral status at discharge: at baseline, oriented Functional status at discharge: independent ambulation Overall status at discharge: patient is progressing back to baseline Time Spent with Patient Time spent: Less than 30 minutes Exam Vital Signs (past 8 hours): - 08/10/24 00:00 08/10/24 06:00 Temperature 98.0 F 98.3 F Pulse Rate 70 86 Respiratory Rate 19 19 Blood Pressure 131/77 143/80 H Pulse Oximetry 97 94 Oxygen Delivery Method Room Air Oxygen Flow Rate 0 Narrative Exam Narrative: General: Pleasant, NAD HEENT: NC/AT, EOMI, moist membranes CV: RRR, normal S1-S2, no m/g/r Resp: Mild crackles in right lung base, comfortable WOB Abd: Soft, NTND, +BS Ext: RUE in soft wrap sling, no edema Skin: No rash or lesions noted Neuro: A&O x3, moves all extremities, no focal deficits Objective Labs 08/09/24 05:31 08/09/24 05:31 [facility] Medical History Polyuria Gait instability Sensory peripheral neuropathy Allergies Carpal tunnel syndrome Mumps Measles Chicken pox Hearing loss Cataracts, bilateral Hemorrhoid 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 Lumbar stenosis with neurogenic 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, flaccid Neurogenic bladder Urinary retention Facet arthropathy, lumbar Atrial fibrillation Spondylolisthesis at L4-L5 level Hypertension Diabetes Asthma Lumbar radiculopathy Obesity (BMI 30-39.9) Fatigue Excessive daytime sleepiness Obstructive sleep apnea Surgical History Anesthesia Pacemaker (05/27/16) Hx of cystoscopy (10/31/20) History of vasectomy History of transurethral resection of prostate History of penile implant (03/21/18) History of circumcision History of cholecystectomy (~2014) Family History Mother Cancer Mental health problem Father Stroke Family/Other Drug overdose Social History marital status: details: Has girlfriend who sometimes stays over household members: none occupational status: previously employed Smoking Status: Former smoker Tobacco: How many years used: 35 alcohol intake: former caffeine: Yes Discharge Assessment & Plan Assessment and Plan Assessment: 84-year-old male with T2DM, asthma, RUDY, neurogenic bladder with self-cath at home and recurrent UTI, peripheral neuropathy, HTN, chronic anticoagulation on Eliquis, and low testosterone who was admitted after GLF at home, sustaining right radial head fracture. Also found to have UTI and pneumonia, likely contributing to underlying weakness. Plan of Treatment: 1) Right radial fracture: - Ortho consulted at admission, recommended nonoperative management - Continue posterior splint for 1 week, then f/u with Ortho outpatient 2) UTI: Culture grew petersen-sensitive E coli. - Augmentin BID (), s/p IV ceftriaxone () - Using condom catheter without issues while in hospital, no significant evidence of urinary retention thus far 3) Pneumonia: No hypoxia. - Continue doxycycline BID (), s/p IV ceftriaxone () 4) Generalized weakness: Likely due to above infections. Peripheral neuropathy contributing as well. - PT/OT consulted - Would benefit from home OT eval for additional devices such as toilet lift - Continue gabapentin for peripheral neuropathy 5) Paroxysmal atrial fibrillation: Rate controlled - Continue Eliquis, metoprolol 6) HTN: BP stable - Continue Lisinopril, Metoprolol, Atorvastatin 7) T2DM: - Continue home metformin, Januvia Discharge Plan Discharge Plan Patient Disposition: SNF Transfer to: [facility] Discharge orders & Medications Prescriptions: New doxycycline hyclate 100 mg Tablet 100 mg PO BID Qty: 7 0RF amoxicillin-pot clavulanate 875-125 mg Tablet 1 tab PO BID Qty: 7 0RF Continued acetaminophen [Tylenol Extra Strength] 500 mg tablet 1,000 mg PO Q6H PRN (Reason: Pain) Ultra CoQ10 75 mg capsule 300 mg PO DAILY magnesium 200 mg tablet 400 mg PO DAILY omeprazole 20 mg capsule,delayed release(DR/EC) 20 mg PO DAILY Qty: 90 3RF Janumet 50-1,000 mg tablet 1 tab PO BID Qty: 180 3RF gabapentin 600 mg tablet 600 mg PO BID Qty: 180 1RF Hold Instructions: Home Medication placed on hold at Doctor's office (DME) OneTouch Verio test strips Strip See Rx Instructions .ROUTE .MEDSUPPLY Qty: 100 3RF Rx Instructions: Test glucose 3-5times daily (DME) lancets [OneTouch Delica Plus Lancet] 33 gauge misc See Rx Instructions .ROUTE 3XD Qty: 100 3RF Rx Instructions: Test glucose 3-5times daily furosemide 40 mg tablet 40 mg PO DAILY atorvastatin 40 mg tablet 40 mg PO DAILY potassium chloride 10 mEq tablet extended release 10 meq PO DAILY triamcinolone acetonide 0.1 % cream 1 applic topical DAILY PRN (Reason: Rash) methenamine hippurate 1 gram tablet 1 g PO BID hydroxyzine HCl 25 mg tablet 25 - 50 mg PO ONCE PM PRN (Reason: itch) lisinopril 5 mg tablet 5 mg PO DAILY metoprolol succinate 25 mg tablet extended release 24 hr 25 mg PO DAILY duloxetine 20 mg capsule,delayed release(DR/EC) 20 mg PO ONCE PM testosterone 20.25 mg/1.25 gram (1.62 %) gel in metered-dose pump 1 pump topical DAILY Adult Probiotic 3 billion cell capsule 3,000 mmu cells PO DAILY Rx Instructions: administer with a meal (DME) Disabled Parking Permit See Rx Instructions .ROUTE .MEDSUPPLY Qty: 1 0RF Rx Instructions: Patient qualifies for disabled parking as per the attached form. multivitamin [Multiple Vitamins] tablet 1 tab PO DAILY ipratropium bromide 42 mcg (0.06 %) spray,non-aerosol 2 spray NASAL TID cholecalciferol (vitamin D3) 1,000 unit capsule 1,000 unit PO DAILY Eliquis 5 mg tablet 5 mg PO BID (DME) Respironics DreamStation BiPAP See Rx Instructions .Route .MEDSUPPLY Rx Instructions: IPAP: 16 EPAP: 5 MaxPS: 5 MinPS: 5 DME: [employer] d-mannose 500 mg capsule 500 mg PO DAILY ascorbate calcium (vitamin C) 500 mg tablet 1 g PO DAILY ferrous sulfate [Jeremías-Time] 325 mg (65 mg iron) tablet 325 mg PO DAILY Follow up/Referrals: Lazaro Morfin MD [Primary Care Provider] - Visit Report/Discharge Packet Stand Alone Forms: Patient Portal/API, Patient Portal/API/Survey Discharge Data Primary Care Provider: Lazaro Morfin Discharges patient from system. Discharge Date/Time: 08/10/24 13:35 Quality VTE Deep Vein Thrombosis/Pulmonary Embolism Present on Admission: No IH PROFEE Charge Codes Discharge inpatient/observation: 12319
[2024-08-10 08:46] VITALS: BP 143/80; PULSE 86
[2024-08-10] MEDS: METOPROLOL ER 25 MG TABLET PO (08:46)
[2024-08-10] MEDS: lisinopriL 5 MG TABLET PO (08:46)
[2024-08-10] MEDS: METFORMIN HCL 500 MG TABLET 1000 MG PO (08:47)
[2024-08-10] MEDS: DOXYCYCLINE HYCLATE 100 MG TABLET PO (08:47)
[2024-08-10] MEDS: GABAPENTIN 600 MG TABLET PO (08:47)
[2024-08-10] MEDS: ATORVASTATIN 20 MG TABLET 40 MG PO (08:47)
[2024-08-10] MEDS: MULTIVITAMIN 1 TABLET 1 TAB PO (08:47)
[2024-08-10] MEDS: AMOXICILLIN/CLAV 875/125 MG 1 TAB PO (08:47)
[2024-08-10] MEDS: PANTOPRAZOLE DR 20 MG TABLET PO (08:47)
[2024-08-10] MEDS: APIXABAN 5 MG TABLET PO (08:47)
[2024-08-10] MEDS: CHOLECALCIFEROL (VITAMIN D3) 1,000 UNIT TABLET 1000 UNIT PO (08:47)
[2024-08-10] MEDS: SITAGLIPTIN 50 MG TABLET PO (08:47)
[2024-08-10] MEDS: MAGNESIUM OXIDE 400 MG TABLET PO (08:47)
[2024-08-10 09:00] VITALS: O2SAT 94
[2024-08-10 09:16] VITALS: BP 128/82; PULSE 69
--- NOTE | 2024-08-10 10:49 | CM.DPC ---
DCP Cont. Reviewed EMR and team rounds for status updates. Pt has been medically cleared for home d/c w/hospice starting early afternoon. Arranged for O2 tank for transport, no further CM d/c needs indicated at this time.
[2024-08-10] MEDS: IPRATROPIUM 0.06% NASAL 15 ML 2 SPRAY NASAL (11:44)
[2024-08-10 12:00] VITALS: BP 128/82; PULSE 69; RESP 18; TEMP 36.6
--- NOTE | 2024-08-10 13:37 | PC.NURSE ---
Day shift: Called GEOVANNI Morgan at [facility] to give report. Completed discharge packet given to [facility] transport. Heavy 2PA + quad cane from bed to wheelchair. PIV removed prior to discharge. Condom cathetar left in place. All belongings with patient and patient's partner.
== END 2024-08-10 13:35 | DRG 562 ==
LOC: ED 14:22 → AC 15:55
PROVIDERS: Admitting Provider Family Medicine; Emergency Provider Emergency Medicine; PCP Family Medicine; Referring Provider Emergency Medicine; Visit Provider Family Medicine
DX: S52.121A Displaced fracture of head of right radius, initial encounter for closed fracture (principal); J18.9 Pneumonia, unspecified organism; N39.0 Urinary tract infection, site not specified; S06.0X0A Concussion without loss of consciousness, initial encounter; K22.70 Barrett's esophagus without dysplasia; I48.0 Paroxysmal atrial fibrillation; N31.9 Neuromuscular dysfunction of bladder, unspecified; E11.42 Type 2 diabetes mellitus with diabetic polyneuropathy; B96.20 Unspecified Escherichia coli [E. coli] as the cause of diseases classified elsewhere; G47.33 Obstructive sleep apnea (adult) (pediatric); J45.909 Unspecified asthma, uncomplicated; W18.30XA Fall on same level, unspecified, initial encounter; Z87.891 Personal history of nicotine dependence; Z87.440 Personal history of urinary (tract) infections; Z91.81 History of falling; Z79.84 Long term (current) use of oral hypoglycemic drugs; Z79.01 Long term (current) use of anticoagulants
CPT/HCPCS: 29105; 36415; 70450; 71045; 71275; 72125; 73080; 73090; 80053; 81001; 81003; 82550; 82962; 83690; 83735; 83880; 84484; 85025; 85610; 85730; 87077; 87086; 87186; 93005; 93010; 96365; 97110; 97162; 97166; 97530; 97535; 99232; 99233; 99238; 99285; 99291; G0390; J0696; J1940; Q9967

== ENCOUNTER → 2024-09-19 09:18 | Outpatient (CLI) | payer MEDICARE, OTHER, SELFPAY ==
[2024-08-07 14:43] VITALS: BMI 34.3
[2024-09-19 10:27] LABS: Hematocrit 32.2 % (41-53); Mean Corpuscular HGB Conc 34.2 % (30-36); Mean Corpuscular Hemoglobin 33.5 PG (26-34); Platelet Count 143 X10^3/uL (150-400); Red Blood Cell Count 3.28 X10^6/uL (4.5-5.9); Red Cell Distribution Width 14.8 % (11.6-14.8); White Blood Cell Count 7.7 X10^3/uL (4.5-11.0)
[2024-09-19 10:45] LABS: Alanine Aminotransferase 30 IU/L (<50); Albumin 3.8 g/dL (3.5-5.0); Albumin Globulin Ratio 1.5 (1.0-2.8); Alkaline Phosphatase 124 U/L (38-126); Aspartate Aminotransferase 26 IU/L (17-59); BUN Creatinine Ratio 28.2 (6-22); Bilirubin Total 1.2 mg/dL (0.2-1.3); Blood Urea Nitrogen 24 mg/dL (9-20); Calcium 9.7 mg/dL (8.4-10.2); Carbon Dioxide 24 mmol/L (22-32); Chloride 105 mmol/L (98-107); Cholesterol 101 mg/dL (140-199); Estimated Glomerular Filt Rate > 60 mL/min (>60); Globulin 2.5 g/dL (1.7-4.1); Glucose 216 mg/dL (70-99); HDL Cholesterol 31 mg/dL (40-60); HEMOLYSIS < 15 (0-50); LDL Cholesterol Calculated 56 mg/dL (<100); Potassium 4.9 mmol/L (3.4-5.1); Sodium 136 mmol/L (137-145); Total Protein 6.3 g/dL (6.3-8.2); Triglycerides 70 mg/dL (35-150)
[2024-09-19 11:21] LABS: Testosterone 323 ng/dL (71.8-623)
== END ==
PROVIDERS: Urology; PCP Family Medicine; Referring Provider Family Medicine; Visit Provider Family Medicine
DX: I10 Essential (primary) hypertension (principal); E11.9 Type 2 diabetes mellitus without complications; R79.89 Other specified abnormal findings of blood chemistry
CPT/HCPCS: 36415; 80053; 80061; 83036; 84403; 85027

== ENCOUNTER → 2024-10-04 13:51 | Outpatient (CLI) | payer MEDICARE, OTHER, SELFPAY ==
[2024-08-07 14:43] VITALS: BMI 34.3
[2024-10-04 15:18] LABS: Appearance Urine UA CLOUDY; Bilirubin Urine UA NEGATIVE (NEGATIVE); Color Urine UA YELLOW; Glucose Urine UA 1+ g/dL (Negative); Ketones Urine UA TRACE (NEGATIVE); Leukocyte Esterase Urine UA 2+ (NEGATIVE); Nitrite Urine UA NEGATIVE (Negative); Occult Blood Urine UA TRACE-INTACT (Negative); Protein Urine UA 3+ (Negative); Specific Gravity Urine UA 1.025 (1.000-1.035); Urobilinogen Urine UA 0.2 E.U./dL (0.2)
[2024-10-04 15:26] LABS: Bacteria Urine Many (>30); RBC Urine None Seen (0-5/HPF); Squamous Epithelial Cell Urine 0-1 /HPF (0-5/HPF); Urine Volume 10mL (spun); WBC Urine >100/HPF (0-5/HPF)
[2024-10-04 15:27] LABS: Culture Indicated Urine Specimen Cultured
== END ==
LOC: LAB 13:52
PROVIDERS: PCP Family Medicine; Visit Provider Urology
DX: N39.0 Urinary tract infection, site not specified (principal)
CPT/HCPCS: 81001; 87077; 87086; 87186

== ENCOUNTER → 2024-10-21 13:25 | Outpatient (CLI) | payer MEDICARE, OTHER, SELFPAY ==
[2024-08-07 14:43] VITALS: BMI 34.3
== END ==
LOC: WC 13:27
PROVIDERS: Family Provider Family Medicine; PCP Family Medicine; Referring Provider Family Medicine; Visit Provider Physician Assistant
DX: I87.2 Venous insufficiency (chronic) (peripheral) (principal); L97.822 Non-pressure chronic ulcer of other part of left lower leg with fat layer exposed; E11.621 Type 2 diabetes mellitus with foot ulcer; E11.42 Type 2 diabetes mellitus with diabetic polyneuropathy; L97.522 Non-pressure chronic ulcer of other part of left foot with fat layer exposed; S51.812A Laceration without foreign body of left forearm, initial encounter; Z79.01 Long term (current) use of anticoagulants; I48.91 Unspecified atrial fibrillation; J45.909 Unspecified asthma, uncomplicated; E66.9 Obesity, unspecified; Z68.34 Body mass index [BMI] 34.0-34.9, adult; R33.9 Retention of urine, unspecified; Z95.0 Presence of cardiac pacemaker; I10 Essential (primary) hypertension; R26.81 Unsteadiness on feet; G61.0 Guillain-Barre syndrome; H25.813 Combined forms of age-related cataract, bilateral
CPT/HCPCS: 11042; 99213; 99214

== ENCOUNTER → 2024-10-24 08:31 | Outpatient (CLI) | payer MEDICARE, OTHER, SELFPAY ==
[2024-08-07 14:43] VITALS: BMI 34.3
== END ==
LOC: WC 08:33
PROVIDERS: Family Provider Family Medicine; PCP Family Medicine; Referring Provider Family Medicine; Visit Provider Surgery
DX: I87.2 Venous insufficiency (chronic) (peripheral) (principal); L97.822 Non-pressure chronic ulcer of other part of left lower leg with fat layer exposed; E11.621 Type 2 diabetes mellitus with foot ulcer; E11.42 Type 2 diabetes mellitus with diabetic polyneuropathy; L97.522 Non-pressure chronic ulcer of other part of left foot with fat layer exposed; S51.812A Laceration without foreign body of left forearm, initial encounter; L53.9 Erythematous condition, unspecified; R60.0 Localized edema
CPT/HCPCS: 29581

== ENCOUNTER → 2024-10-26 05:28 | Outpatient (CLI) | payer MEDICARE, OTHER, SELFPAY ==
[2024-08-07 14:43] VITALS: BMI 34.3
--- NOTE | 2024-10-26 05:32 | DI.US.S_ITS ---
PROCEDURE: US RENAL COMPLETE INDICATIONS: 84 y/o M w/ neurogenic bladder, eval for hydro TECHNIQUE: Real-time scanning was performed of the kidneys and bladder, with image documentation. COMPARISON: None. FINDINGS: Kidneys: Kidneys are normal in size. Right kidney measures 13.6 cm long; left kidney measures 11.8 cm long. Right renal cortical thickness is 1.2 cm; left renal cortical thickness is 1.8 cm. Renal cortical echotexture is normal. No hydronephrosis or nephrolithiasis. No suspicious solid mass lesions. Bladder: Pre-void bladder volume is 247 mL. Reported neurogenic bladder and postvoid imaging not performed. Pre-void images demonstrate no intraluminal masses or stones. On pre-void images, neither the right nor left ureteral jets are noted with color Doppler interrogation. (Of note, ureteral jets may not be detectable in up to 25% of cases due to insufficient differences in specific gravity between ureteral and bladder urine). Miscellaneous: No free pelvic fluid. IMPRESSION: No hydronephrosis. Dictated by: Melody Jeffrey MD, PhD on 10/26/2024 at 10:50 Approved by: Melody Jeffrey MD, PhD on 10/26/2024 at 10:51
[2024-10-26 08:08] LABS: Hematocrit 34.7 % (41-53)
[2024-10-26 08:28] LABS: Alanine Aminotransferase 23 IU/L (<50); Albumin 3.9 g/dL (3.5-5.0); Albumin Globulin Ratio 1.7 (1.0-2.8); Alkaline Phosphatase 124 U/L (38-126); Aspartate Aminotransferase 28 IU/L (17-59); BUN Creatinine Ratio 38.7 (6-22); Bilirubin Total 0.9 mg/dL (0.2-1.3); Blood Urea Nitrogen 36 mg/dL (9-20); Carbon Dioxide 26 mmol/L (22-32); Chloride 102 mmol/L (98-107); Estimated Glomerular Filt Rate > 60 mL/min (>60); Globulin 2.3 g/dL (1.7-4.1); Glucose 210 mg/dL (70-99); HEMOLYSIS < 15 (0-50); Potassium 4.8 mmol/L (3.4-5.1); Sodium 135 mmol/L (137-145); Total Protein 6.2 g/dL (6.3-8.2)
[2024-10-26 08:42] LABS: Creatinine Urine Random 38.38 mg/dL
== END ==
PROVIDERS: Family Provider Family Medicine; PCP Family Medicine; Referring Provider Urology; Visit Provider Urology
DX: N31.9 Neuromuscular dysfunction of bladder, unspecified (principal); R79.89 Other specified abnormal findings of blood chemistry; E11.9 Type 2 diabetes mellitus without complications
CPT/HCPCS: 36415; 76770; 80053; 82043; 82570; 85014

== ENCOUNTER → 2024-10-28 10:07 | Outpatient (CLI) | payer MEDICARE, OTHER, SELFPAY ==
[2024-08-07 14:43] VITALS: BMI 34.3
== END ==
LOC: WC 10:10
PROVIDERS: PCP Family Medicine; Referring Provider Family Medicine; Visit Provider Physician Assistant
DX: I87.2 Venous insufficiency (chronic) (peripheral) (principal); L97.822 Non-pressure chronic ulcer of other part of left lower leg with fat layer exposed; S51.812A Laceration without foreign body of left forearm, initial encounter; Z79.01 Long term (current) use of anticoagulants; Z86.31 Personal history of diabetic foot ulcer
CPT/HCPCS: 11042; 87070; 87075; 87077; 87147; 87186; 87205; 99213

== ENCOUNTER → 2024-11-04 14:13 | Outpatient (CLI) | payer MEDICARE, OTHER, SELFPAY ==
[2024-08-07 14:43] VITALS: BMI 34.3
== END ==
LOC: WC 14:15
PROVIDERS: PCP Family Medicine; Referring Provider Family Medicine; Visit Provider Physician Assistant
DX: I87.2 Venous insufficiency (chronic) (peripheral) (principal); L97.822 Non-pressure chronic ulcer of other part of left lower leg with fat layer exposed; S51.812A Laceration without foreign body of left forearm, initial encounter; E11.42 Type 2 diabetes mellitus with diabetic polyneuropathy; I10 Essential (primary) hypertension; I48.91 Unspecified atrial fibrillation; Z79.84 Long term (current) use of oral hypoglycemic drugs; Z79.01 Long term (current) use of anticoagulants
CPT/HCPCS: 11042

== ENCOUNTER → 2024-11-11 14:18 | Outpatient (CLI) | payer MEDICARE, OTHER, SELFPAY ==
[2024-08-07 14:43] VITALS: BMI 34.3
== END ==
LOC: WC 14:19
PROVIDERS: PCP Family Medicine; Referring Provider Family Medicine; Visit Provider Surgery
DX: L97.822 Non-pressure chronic ulcer of other part of left lower leg with fat layer exposed (principal); I87.2 Venous insufficiency (chronic) (peripheral); S51.812D Laceration without foreign body of left forearm, subsequent encounter; E11.622 Type 2 diabetes mellitus with other skin ulcer; I10 Essential (primary) hypertension; I48.91 Unspecified atrial fibrillation; Z79.01 Long term (current) use of anticoagulants; Z95.0 Presence of cardiac pacemaker
CPT/HCPCS: 97597; 99213

== ENCOUNTER → 2024-11-17 10:25 | Outpatient (CLI) | payer MEDICARE, OTHER, SELFPAY ==
[2024-08-07 14:43] VITALS: BMI 34.3
== END ==
LOC: WC 10:27
PROVIDERS: PCP Family Medicine; Referring Provider Family Medicine; Visit Provider Surgery
DX: I87.2 Venous insufficiency (chronic) (peripheral) (principal); L97.822 Non-pressure chronic ulcer of other part of left lower leg with fat layer exposed; E11.42 Type 2 diabetes mellitus with diabetic polyneuropathy; Z79.01 Long term (current) use of anticoagulants; Z79.84 Long term (current) use of oral hypoglycemic drugs; R60.0 Localized edema; L53.9 Erythematous condition, unspecified; E66.9 Obesity, unspecified; Z68.34 Body mass index [BMI] 34.0-34.9, adult
CPT/HCPCS: 97602; 99213

== ENCOUNTER → 2024-11-24 13:42 | Outpatient (CLI) | payer MEDICARE, OTHER, SELFPAY ==
[2024-08-07 14:43] VITALS: BMI 34.3
== END ==
PROVIDERS: PCP Family Medicine; Referring Provider Family Medicine; Visit Provider Surgery
DX: Z87.2 Personal history of diseases of the skin and subcutaneous tissue (principal); R60.0 Localized edema; Z79.01 Long term (current) use of anticoagulants
CPT/HCPCS: 99212; 99213

== ENCOUNTER → 2024-12-28 10:31 | Outpatient (CLI) | payer MEDICARE, OTHER, SELFPAY ==
[2024-08-07 14:43] VITALS: BMI 34.3
[2024-12-28 11:17] LABS: Hematocrit 37.9 % (41-53); Hemoglobin 12.6 g/dL (13.5-17.5); Mean Corpuscular HGB Conc 33.3 % (30-36); Mean Corpuscular Hemoglobin 34.4 PG (26-34); Mean Corpuscular Volume 103.2 fL (80-100); Platelet Count 156 X10^3/uL (150-400)
[2024-12-28 12:01] LABS: Hemoglobin A1C% w Est Avg Glu 8.9 % (4.0-6.0)
[2024-12-28 12:03] LABS: Alanine Aminotransferase 54 IU/L (<50); Albumin 4.3 g/dL (3.5-5.0); Albumin Globulin Ratio 1.7 (1.0-2.8); Alkaline Phosphatase 170 U/L (38-126); Blood Urea Nitrogen 30 mg/dL (9-20); Calcium 10.1 mg/dL (8.4-10.2); Carbon Dioxide 21 mmol/L (22-32); Chloride 105 mmol/L (98-107); Cholesterol 118 mg/dL (140-199); Estimated Glomerular Filt Rate > 60 mL/min (>60); Globulin 2.6 g/dL (1.7-4.1); Glucose 275 mg/dL (70-99); HDL Cholesterol 41 mg/dL (40-60); HEMOLYSIS < 15 (0-50); Potassium 4.4 mmol/L (3.4-5.1); Sodium 138 mmol/L (137-145); Total Protein 6.9 g/dL (6.3-8.2); Triglycerides 113 mg/dL (35-150)
== END ==
PROVIDERS: PCP Family Medicine; Referring Provider Family Medicine; Visit Provider Family Medicine
DX: E11.9 Type 2 diabetes mellitus without complications (principal); Z12.5 Encounter for screening for malignant neoplasm of prostate; D53.9 Nutritional anemia, unspecified
CPT/HCPCS: 36415; 80053; 80061; 83036; 85027; G0103

== ENCOUNTER 2025-01-10 14:41 | Outpatient (CLI) | payer MEDICARE, OTHER, SELFPAY ==
[2024-08-07 14:43] VITALS: BMI 34.3
[2025-01-10] VITALS (9 sets, daily range): BP systolic 119–191; BP diastolic 60–115; PULSE 69–76; RESP 13–18; TEMP 36.6; O2SAT 95–100
[2025-01-10] MEDS: MIDAZOLAM 2 MG/2 ML VIAL IV (16:45)
[2025-01-10] MEDS: BETAMETHASONE 30 MG/5 ML MDV 12 MG INJ (16:50)
[2025-01-10] MEDS: BETAMETHASONE 30 MG/5 ML MDV 6 MG INJ (16:57)
--- NOTE | 2025-01-10 17:15 | P.PCN_ITS ---
Date/Time/Diagnoses Date of procedure: 01/10/25 Time of procedure: 17:15 Pre-procedure diagnosis: 1. FORAMINAL STENOSIS WITH LE SYMPTOMS Post-procedure diagnosis: same Procedure Notes Procedure: 1. FLUOROSCOPICALLY GUIDED CONTRAST CONTROLLED TRANSFORAMINAL EPIDURAL STEROID INJECTION - BILATERAL L3/4 TFESI Indications: David is referred by Dr. Morfin for treatment of Foraminal Stenosis with bilateral LE Symptoms Physician: Logan Mcintosh Total Fluoroscopy time (seconds): 22 Total sedation minutes: 24 Complications: none Procedure in detail & Post-procedure care: FINDINGS Foraminal Nerve Root Compression secondary to disc disease and facet hypertrophy DESCRIPTION OF PROCEDURE Following review of allergy and review of potential side effects and complications, including, but not necessarily limited to, infection, allergic reaction, local tissue breakdown, stroke, temporary or permanent nerve injury, paralysis, and possible , the patient indicated that the patient understood and agreed to proceed. An informed consent document was signed by the patient, witnessed by a nurse, and placed in the patient's chart. Additionally, other treatment options including medications, modalities, and physical therapy were reviewed with the patient. After review of previous anaesthesic history and IV conscious sedation the patient was deemed safe to proceed with today?s procedure with IV conscious sedation as ASA class II designation. Safety time-out was performed to confirm patient ID, procedure to be performed and site of procedure. IV sedation was accomplished with a combination of 2mg of Versed was administered by the RN after DO order, titrated to patient comfort during the course of the procedure while the patient remained responsive to all verbal commands In the prone position following sterile prep and drape of the lumbar region, the right L3/4 posterior neuroforamen was identified fluoroscopically. The skin was anesthetized via a 25-gauge 1.5-inch needle with 1% lidocaine solution. At this point, a 25-gauge 3.5-inch spinal needle was atraumatically introduced and advanced under fluoroscopic guidance through the posterior right L3/4 neuroforamen to approximately the anterior aspect of the canal. Depth was confirmed on lateral view. Following negative aspiration, injection of approximately 1.5cc of Isovue 200 under live fluoroscopy in the AP view confirmed excellent flow along the nerve root, into the epidural space without vascular or intrathecal uptake observed Radiological data, including multiple fluoroscopic views of the lumbosacral spine, reveal a spinal needle at the right L3/4 posterior neuroforamen. Subsequent views show flow of contrast material flowing superiorly and inferiorly along the nerve root confirming epidural flow. Subsequently, a test dose of 1.5cc of 1% lidocaine solution was administered and patient was observed for two minutes for signs or symptoms of complications, including abdominal pain, shortness of breath, bilateral upper or lower e xtremity weakness, nausea and vomiting, prior to steroid injection. At this point, a total of 2cc or 10mg of dexamethasone and 6mg betamethasone was injected without incident. Attention was then refocused to the left L3/4 level where the identical procedure was replicated. The procedure tolerated the procedure well without signs or symptoms of complications prior to transfer to the recovery area continued monitoring without incident. The patient was then transferred to the recovery area where they were observed for an appropriate time after the injection. The patient reported a VAS score of 7 prior to the procedure and a post-procedure VAS of 0. POST OP INSTRUCTIONS The patient was provided a Pain Log to continue to record their response to the target-specific procedure prior to follow-up visit with their referring physician. Additionally, specific post-injection care instructions and a contact number to our office were provided if concerns arise regarding possible complications associated with the procedure are suspected.
== END 2025-01-10 17:23 | disposition home or self-care (01) ==
PROVIDERS: PCP Family Medicine; Referring Provider Physical Medicine & Rehabilitation; Visit Provider Physical Medicine & Rehabilitation
DX: M48.061 Spinal stenosis, lumbar region without neurogenic claudication (principal); M51.16 Intervertebral disc disorders with radiculopathy, lumbar region; M47.26 Other spondylosis with radiculopathy, lumbar region
CPT/HCPCS: 64483; 99152; 99153; J0702; J1100; J2250

== ENCOUNTER → 2025-02-03 13:43 | Outpatient (CLI) | payer MEDICARE, OTHER, SELFPAY ==
[2024-08-07 14:43] VITALS: BMI 34.3
--- NOTE | 2025-02-03 15:11 | DIAB.MNTFU ---
Follow-up Diabetes Medical Nutrition Therapy Assessment Name: David Logan (Carlos) Date: 02/03/25 Time: 205-305p Dx: Type II Diabetes Carlos presents for DM follow-up visit. Now wearing personal CGM. Seems to have consistently elevated BG mid day over 250mg/dl. We examined his food journal to make some diet adjustments. Most of his diet seems within recommendations for carbs, but continues to have elevated numbers. Likely needs additional DM medications, however Rybelsus and Ozempic were too expensive and per provider notes pt had excessive UTIs with SGLT2i. May benefit from trying different injectable GLP1 preferred by insurance or basal insulin. Today he has nutrition questions. He also has questions regarding why BG raises at different times. Also questions about calibration. Kept a food journal. Breakfast often cereal high in fiber, with protein shake and fruit cup in lower sugar syrup with coffee and sf creamer. Then will have mid morning snack close to breakfast, ie fruit or yogurt. Anthropometrics: Ht: 68 Wt: 225# 12/2024 Reports 221.5# at home today Physical Activity: No program now but plans for PT again. Self-Monitoring Blood Glucose: Getting Dexcom G7 from DME. TIR: 21% very high 37% high 42% in range 0% low or very low avmg/dl GMI: 8.2% std dev: 62 mg/dl variance: 30.4% Diabetes Medications: 10mg Glipizide 3mg Ryelsus-- not taking due to cost 50-1000mg Janumet BID Pertinent Labs: HgA1c: 8.9% 12/2024 Past Medical History: (Last Reviewed 12/21/24 @ 13:38 by Logan Mcintosh DO) Allergies Asthma Atrial fibrillation Olmedo's esophagus Carpal tunnel syndrome Cataracts, bilateral Chicken pox Closed fracture of head of right radius Degenerative joint disease (DJD) of hip Diabetes Excessive daytime sleepiness Facet arthropathy, lumbar Fatigue Gait instability Hearing loss Hearing aidsHemorrhoid 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 Hypertension Lumbar radiculopathy Lumbar stenosis with neurogenic claudication Measles Moderately increased albuminuria 06/16/23: 96.6 ug/mg CRMumps Neurogenic bladder Neurogenic bladder, flaccid Obesity (BMI 30-39.9) Obstructive sleep apnea Polyuria Sensory peripheral neuropathy Spondylolisthesis at L4-L5 level Urinary retention Nutrition Rx: Carbohydrates: Meal:30-45gSnack:15-30g Nutrition Diagnosis: - Inconsistent protein intake r/t nutrition knowledge deficit aeb pt report and diet recall- improved/in progress - Predicted excessive CHO intake r/t breakfast/mid day choices aeb food journal and elevated BG- new Intervention: This participant was very receptive. Provided appropriate educational handouts. Discussed the following topics: Diet changes to reduce mid morning BG Macronutrients and impact on BG Recommended portions meal/snack timing CGM: location, calibration Lanie phenomenon Created SMART goals for patient self-care and success. Goals: Try adding 2-3oz protein to mid day snack/meal- 50% met Wear CGM x 10.5 days- met Call [facility] for CGM rx in 1 week prn- met Cut out peach cup at breakfast- new Move morning snack to 1030a- new Try smaller portion of shredded wheat- new Follow-up: ARLET ROMERO follow-up in 2 weeks Yamel Zavala RDN, HEATHER Certified Diabetes Care and Chronic Care Nurse P: [phone] Thank you for this referral
== END ==
LOC: DIET 13:47
PROVIDERS: PCP Family Medicine; Referring Provider Family Medicine
DX: E11.9 Type 2 diabetes mellitus without complications (principal); Z71.3 Dietary counseling and surveillance; Z79.84 Long term (current) use of oral hypoglycemic drugs
CPT/HCPCS: 97803

== ENCOUNTER → 2025-02-16 13:55 | Outpatient (CLI) | payer MEDICARE, OTHER, SELFPAY ==
[2024-08-07 14:43] VITALS: BMI 34.3
--- NOTE | 2025-03-10 08:03 | DIAB.FU ---
Follow-up Diabetes Education Assessment Name: David Logan (Carlos) Date: 02/16/25 Time: 205-240p Dx: Type II Diabetes Carlos presents for DM follow-up visit. Has questions about BG trending up while sleeping. Endorses having no feeling in feet. 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 Eyes: UTD No bare feet. Does not lotion feet, reports feet are dry. Dental: none Rybelsus and Ozempic too expensive per report. insurance may prefer different GLP1, Trulicity? needs some ideas for breakfast. Anthropometrics: Ht: 68 Wt: 225# 12/2024 Reports 221.5# at home today Physical Activity: No program now but plans for PT again. Self-Monitoring Blood Glucose: Wearing Dexcom G7. TIR improved, however still excessive time with hyperglycemia. TIR: 10% very high 29% high 61% in range 0% low or very low avmg/dl GMI: 7.5% std dev: 52 mg/dl variance: 30% Last TIR: 21% very high 37% high 42% in range 0% low or very low avmg/dl GMI: 8.2% std dev: 62 mg/dl variance: 30.4% Diabetes Medications: 10mg Glipizide 3mg Ryelsus-- not taking due to cost 50-1000mg Janumet BID Pertinent Labs: HgA1c: 8.9% 12/2024 Past Medical History: (Last Reviewed 12/21/24 @ 13:38 by Logan Mcintosh DO) Allergies Asthma Atrial fibrillation Olmedo's esophagus Carpal tunnel syndrome Cataracts, bilateral Chicken pox Closed fracture of head of right radius Degenerative joint disease (DJD) of hip Diabetes Excessive daytime sleepiness Facet arthropathy, lumbar Fatigue Gait instability Hearing loss Hearing aidsHemorrhoid 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 Provided appropriate educational handouts. Discussed the following topics: Breakfast ideas DM complication risk reduction: eyes, feet, dental Lanie phenomenon Created SMART goals for patient self-care and success. Goals: Cut out peach cup at breakfast- met Move morning snack to 1030a- not met Try smaller portion of shredded wheat- met Lotion feet- new Try HS snack more consistently- new D/c shredded wheat cereal- new Try micowave eggs- new Call PT- new Follow-up: ARLET ROMERO follow-up in 2-3 weeks Yamel Zavala RDN, HEATHER Certified Diabetes Care and Ore Storage Drier P: [phone] Thank you for this referral
== END ==
LOC: DIET 13:55
PROVIDERS: PCP Family Medicine; Referring Provider Family Medicine
DX: E11.65 Type 2 diabetes mellitus with hyperglycemia (principal); Z71.3 Dietary counseling and surveillance; Z79.84 Long term (current) use of oral hypoglycemic drugs
CPT/HCPCS: G0108

== ENCOUNTER → 2025-03-01 09:16 | Outpatient (CLI) | payer MEDICARE, OTHER, SELFPAY ==
[2024-08-07 14:43] VITALS: BMI 34.3
[2025-03-01 09:58] LABS: Hematocrit 36.7 % (41-53)
[2025-03-01 10:05] LABS: Hemoglobin A1C% w Est Avg Glu 8.4 % (4.0-6.0)
[2025-03-01 10:14] LABS: Alanine Aminotransferase 49 IU/L (<50); Albumin 4.2 g/dL (3.5-5.0); Albumin Globulin Ratio 1.6 (1.0-2.8); Alkaline Phosphatase 142 U/L (38-126); Blood Urea Nitrogen 30 mg/dL (9-20); Calcium 10.1 mg/dL (8.4-10.2); Carbon Dioxide 23 mmol/L (22-32); Chloride 103 mmol/L (98-107); Estimated Glomerular Filt Rate > 60 mL/min (>60); Globulin 2.6 g/dL (1.7-4.1); Glucose 237 mg/dL (70-99); HEMOLYSIS < 15 (0-50); Potassium 5.0 mmol/L (3.4-5.1); Sodium 135 mmol/L (137-145); Total Protein 6.8 g/dL (6.3-8.2)
== END ==
PROVIDERS: Urology; PCP Family Medicine; Referring Provider Family Medicine; Visit Provider Family Medicine
DX: E11.29 Type 2 diabetes mellitus with other diabetic kidney complication (principal); R80.9 Proteinuria, unspecified; R79.89 Other specified abnormal findings of blood chemistry
CPT/HCPCS: 36415; 80053; 83036; 84403; 85014

== ENCOUNTER → 2025-03-09 09:04 | Outpatient (CLI) | payer MEDICARE, OTHER, SELFPAY ==
[2024-08-07 14:43] VITALS: BMI 34.3
[2025-03-09 09:55] LABS: Add Manual Diff / Slide Review NO; Hematocrit 35.9 % (41-53); Hemoglobin 12.0 g/dL (13.5-17.5); Lymphocytes Absolute Auto 900 /uL (1100-4500); Mean Corpuscular HGB Conc 33.3 % (30-36); Mean Corpuscular Hemoglobin 34.2 PG (26-34); Mean Corpuscular Volume 102.6 fL (80-100); Platelet Count 171 X10^3/uL (150-400)
[2025-03-09 10:14] LABS: HEMOLYSIS < 15 (0-50); Iron 76 ug/dL (49-181)
[2025-03-09 10:19] LABS: Alanine Aminotransferase 47 IU/L (<50); Albumin 4.2 g/dL (3.5-5.0); Albumin Globulin Ratio 1.6 (1.0-2.8); Alkaline Phosphatase 136 U/L (38-126); Blood Urea Nitrogen 23 mg/dL (9-20); Calcium 9.9 mg/dL (8.4-10.2); Carbon Dioxide 21 mmol/L (22-32); Chloride 106 mmol/L (98-107); Estimated Glomerular Filt Rate > 60 mL/min (>60); Globulin 2.6 g/dL (1.7-4.1); Glucose 298 mg/dL (70-99); HEMOLYSIS < 15 (0-50); Potassium 4.8 mmol/L (3.4-5.1); Sodium 136 mmol/L (137-145); Total Protein 6.8 g/dL (6.3-8.2)
[2025-03-09 10:25] LABS: Percent Iron Saturation 20 % (20-50); Total Iron Binding Capacity 374 ug/dL (261-462); Transferrin 329 mg/dL (206-381)
[2025-03-09 10:50] LABS: Ferritin 54 ng/mL (18-464)
== END ==
PROVIDERS: PCP Family Medicine; Referring Provider Physician Assistant; Visit Provider Physician Assistant
DX: L29.89 Other pruritus (principal)
CPT/HCPCS: 80053; 82728; 83516; 83540; 83550; 85025

== ENCOUNTER → 2025-03-10 09:54 | Outpatient (CLI) | payer MEDICARE, OTHER, SELFPAY ==
[2024-08-07 14:43] VITALS: BMI 34.3
--- NOTE | 2025-04-12 09:20 | DIAB.FU ---
Follow-up Diabetes Education Assessment Name: David Logan (Carlos) Date: 03/10/25 Time: 10-1030a Dx: Type II Diabetes Carlos presents for DM follow-up visit. Per CGM having mostly mid day elevations. has questions about low BG tx, though no lows per CGM reports. Does not keep sugar in the house. Also has questions about fruit intake for apples and berries. Diet recall: B: fiber one cereal with protein shake L: berries, yogurt OR eggs D: frozen veg and chx HS sn: yogurt with berries or just berries Anthropometrics: Ht: 68 Wt: 225# 12/2024 Reports 221.5# at home today Physical Activity: No program now but plans for PT again. Self-Monitoring Blood Glucose: Wearing Dexcom G7. Some increase in hyperglycemia since last visit. Most elevations happening mid day. RD has messaged PCP regarding possible GLP1 option that his insurance may cover better. TIR: 15% very high 29% high 56% in range 0% low or very low avmg/dl GMI: 7.7% std dev: 62 mg/dl variance: 34.3% Last TIR: 10% very high 29% high 61% in range 0% low or very low avmg/dl GMI: 7.5% std dev: 52 mg/dl variance: 30% Diabetes Medications: 10mg Glipizide 3mg Ryelsus-- not taking due to cost 50-1000mg Janumet BID Pertinent Labs: HgA1c: 8.9% 12/2024 8.4% 02/2025 Past Medical History: (Last Reviewed 12/21/24 @ 13:38 by Logan Mcintosh DO) Allergies Asthma Atrial fibrillation Olmedo's esophagus Carpal tunnel syndrome Cataracts, bilateral Chicken pox Closed fracture of head of right radius Degenerative joint disease (DJD) of hip Diabetes Excessive daytime sleepiness Facet arthropathy, lumbar Fatigue Gait instability Hearing loss Hearing aidsHemorrhoid 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 Provided appropriate educational handouts. Discussed the following topics: Treating lows and s/s Fruit impact of BG and portions Macro pairing Strategies for reducing mid day elevations Created SMART goals for patient self-care and success. Goals: Lotion feet- met Try HS snack more consistently- met D/c shredded wheat cereal- met Try micowave eggs- met Call PT- met Keep glucose tabs in house- new Try small apple for snack- new Follow-up: ARLET ROMERO follow-up in 4-6 weeks Yamel Zavala RDN, HEATHER Certified Diabetes Care and Retail Pricing Coordinator P: [phone] Thank you for this referral
== END ==
LOC: DIET 09:55
PROVIDERS: PCP Family Medicine; Referring Provider Family Medicine
DX: E11.65 Type 2 diabetes mellitus with hyperglycemia (principal); Z71.3 Dietary counseling and surveillance; Z79.84 Long term (current) use of oral hypoglycemic drugs
CPT/HCPCS: G0108

== ENCOUNTER → 2025-03-14 07:56 | Outpatient (CLI) | payer MEDICARE, OTHER, SELFPAY ==
[2024-08-07 14:43] VITALS: BMI 34.3
[2025-03-14 08:43] LABS: Hematocrit 36.6 % (41-53); Hemoglobin 12.2 g/dL (13.5-17.5); Mean Corpuscular HGB Conc 33.4 % (30-36); Mean Corpuscular Hemoglobin 34.2 PG (26-34); Mean Corpuscular Volume 102.2 fL (80-100); Platelet Count 154 X10^3/uL (150-400)
[2025-03-14 08:44] LABS: Reticulocyte Count, Percent 1.9 % (0.9-2.6)
[2025-03-14 08:59] LABS: Atypical Lymphocytes Percent 1.0 %; Eosinophils Percent Manual 5.0 % (2-4); Lymphocytes Percent Manual 13.0 % (25-45); Monocytes Percent Manual 14.0 % (2-11); Neutrophils Absolute Manual 4623 /uL (3000-5900); RBC Morphology Normal Morphology; Segmented Neutrophils Percent 67.0 % (38-70); Total Cells Counted 100
[2025-03-14 09:13] LABS: Appearance Urine UA CLOUDY; Bilirubin Urine UA NEGATIVE (NEGATIVE); Color Urine UA YELLOW; Glucose Urine UA NEGATIVE (Negative); Ketones Urine UA NEGATIVE (NEGATIVE); Leukocyte Esterase Urine UA 2+ (NEGATIVE); Nitrite Urine UA NEGATIVE (Negative); Occult Blood Urine UA 1+ (Negative); Protein Urine UA 1+ (Negative); Specific Gravity Urine UA 1.020 (1.000-1.035); Urobilinogen Urine UA 0.2 E.U./dL (0.2); pH Urine UA 5.5 (4.5-8.0)
[2025-03-14 09:37] LABS: Culture Indicated Urine Specimen Cultured
[2025-03-14 10:09] LABS: Alanine Aminotransferase 60 IU/L (<50); Albumin 4.5 g/dL (3.5-5.0); Albumin Globulin Ratio 1.6 (1.0-2.8); Alkaline Phosphatase 139 U/L (38-126); Blood Urea Nitrogen 24 mg/dL (9-20); Calcium 9.8 mg/dL (8.4-10.2); Carbon Dioxide 20 mmol/L (22-32); Chloride 107 mmol/L (98-107); Estimated Glomerular Filt Rate > 60 mL/min (>60); Globulin 2.8 g/dL (1.7-4.1); Glucose 207 mg/dL (70-99); HEMOLYSIS < 15 (0-50); Potassium 4.7 mmol/L (3.4-5.1); Sodium 136 mmol/L (137-145); Total Protein 7.3 g/dL (6.3-8.2)
[2025-03-14 10:58] LABS: Vitamin B12 Reflex MMA if <400 > 1000 pg/mL (239-931)
[2025-03-14 11:15] LABS: Folate > 20.0 ng/mL (2.76-20.0)
== END ==
PROVIDERS: PCP Family Medicine; Referring Provider Urology; Visit Provider Urology
DX: E11.9 Type 2 diabetes mellitus without complications (principal); D53.9 Nutritional anemia, unspecified
CPT/HCPCS: 36415; 80053; 81001; 82525; 82607; 82668; 82746; 83010; 83615; 84630; 85025; 85045; 87077; 87086

== ENCOUNTER → 2025-04-03 09:35 | Outpatient (CLI) | payer MEDICARE, OTHER, SELFPAY ==
[2024-08-07 14:43] VITALS: BMI 34.3
[2025-04-03 10:16] LABS: Hematocrit 39.6 % (41-53)
[2025-04-03 11:08] LABS: Alanine Aminotransferase 45 IU/L (<50); Albumin 4.7 g/dL (3.5-5.0); Albumin Globulin Ratio 1.7 (1.0-2.8); Alkaline Phosphatase 130 U/L (38-126); Calcium 10.8 mg/dL (8.4-10.2); Carbon Dioxide 23 mmol/L (22-32); Chloride 104 mmol/L (98-107); Globulin 2.8 g/dL (1.7-4.1); Glucose 193 mg/dL (70-99); HEMOLYSIS < 15 (0-50); Potassium 4.4 mmol/L (3.4-5.1); Sodium 140 mmol/L (137-145); Total Protein 7.5 g/dL (6.3-8.2)
[2025-04-03 11:13] LABS: Blood Urea Nitrogen 33 mg/dL (9-20); Estimated Glomerular Filt Rate > 60 mL/min (>60)
== END ==
PROVIDERS: PCP Family Medicine; Referring Provider Urology; Visit Provider Urology
DX: R79.89 Other specified abnormal findings of blood chemistry (principal)
CPT/HCPCS: 36415; 80053; 84403; 85014

== ENCOUNTER → 2025-04-18 13:32 | Outpatient (CLI) | payer MEDICARE, OTHER, SELFPAY ==
[2024-08-07 14:43] VITALS: BMI 34.3
--- NOTE | 2025-05-16 08:41 | DIAB.FU ---
Follow-up Diabetes Education Assessment Name: David Logan (Carlos) Date: 04/18/25 Time: 2-245p Dx: Type II Diabetes Carlos presents for DM follow-up visit. At the time of this visit, pt reports Victoza was not covered by insurance. RD messaged PCP about other GLP1 potential options. Continues with elevated BG excessively, despite balanced nutrition intake reported. Diet recall: B: fiber one cereal with protein shake OR steven and eggs OR sometimes oats L: sandwich OR fruit D: frozen veg and chx Or salad and protein HS sn: yogurt with berries or just berries Anthropometrics: Ht: 68 Wt: 237# 03/2025 225# 12/2024 Reports 221.5# at home today Physical Activity: Not discussed Self-Monitoring Blood Glucose: Wearing Dexcom G7. Increase in hyperglycemia since last visit. Unclear of etiology at this time, ie lifestyle vs progression of Dm vs accuracy of this sensor. TIR: 30% very high 41% high 29% in range 0% low or very low avmg/dl GMI: 8.5% std dev: 58 mg/dl variance: 26.6% Last TIR: 15% very high 29% high 56% in range 0% low or very low avmg/dl GMI: 7.7% std dev: 62 mg/dl variance: 34.3% Diabetes Medications: 10mg Glipizide 50-1000mg Janumet BID Pertinent Labs: HgA1c: 8.9% 12/2024 8.4% 02/2025 Past Medical History: (Last Reviewed 12/21/24 @ 13:38 by Logan Mcintosh DO) Allergies Asthma Atrial fibrillation Olmedo's esophagus Carpal tunnel syndrome Cataracts, bilateral Chicken pox Closed fracture of head of right radius Degenerative joint disease (DJD) of hip Diabetes Excessive daytime sleepiness Facet arthropathy, lumbar Fatigue Gait instability Hearing loss Hearing aidsHemorrhoid History of Guillain-[place] syndrome due to influenza immunization Hypertension Lumbar radiculopathy Lumbar stenosis with neurogenic claudication Measles Moderately increased albuminuria 06/16/23: 96.6 ug/mg CRMumps Neurogenic bladder Neurogenic bladder, flaccid Obesity (BMI 30-39.9) Obstructive sleep apnea Polyuria Sensory peripheral neuropathy Spondylolisthesis at L4-L5 level Urinary retention Intervention: This participant was very receptive. Provided appropriate educational handouts. Discussed the following topics: Meal planning for lower CHO supervisor sign shop GLP1 prn Created SMART goals for patient self-care and success. Goals: Keep glucose tabs in house- not discussed Try small apple for snack- met Try new meal idea discussed- new supervisor sign shop GLP1 prn- new Follow-up: ARLET ROMERO follow-up in 4 weeks Yamel Zavala RDN, HEATHER Certified Diabetes Care and Sheriffs Officer P: [phone] Thank you for this referral
== END ==
PROVIDERS: PCP Family Medicine; Referring Provider Family Medicine
DX: E11.65 Type 2 diabetes mellitus with hyperglycemia (principal); Z71.3 Dietary counseling and surveillance; Z79.84 Long term (current) use of oral hypoglycemic drugs
CPT/HCPCS: G0108

== ENCOUNTER 2025-05-12 12:32 | Emergency (ER) | payer MEDICARE, OTHER, SELFPAY ==
[2024-08-07 14:43] VITALS: BMI 34.3
[2025-05-12] VITALS (14 sets, daily range): BP systolic 131–159; BP diastolic 67–89; PULSE 58–73; RESP 12–22; TEMP 36.5; O2SAT 91–98; BMI 34.8
--- NOTE | 2025-05-12 14:31 | EKG_ITS ---
[place] [address] [place] [id number] Test Date: 2025-05-12 Pat Name: David Logan Department: [facility] Room: Gender: Male Cash Teller: LEE : 1940 Requested By: Order Number: [id number] Reading MD: David Reyes MD Measurements Intervals [place] Rate: 63 P: [place]: QRS: 52 QRSD: 88 T: -61 QT: 440 QTc: 450 Interpretive Statements Atrial fibrillation with occasional ventricular-paced complexes Septal infarct , age undetermined ST & T wave abnormality, consider inferolateral ischemia Electronically Signed On 05-12-2025 15:59:51 PST by David Reyes MD
--- NOTE | 2025-05-12 14:31 | DI.RAD.S_ITS ---
PROCEDURE: XR CHEST 1V INDICATIONS: Shortness of breath TECHNIQUE: One view of the chest was acquired. COMPARISON: [facility], CR, XR CHEST 1V, 08/07/2024, 9:31. FINDINGS: Surgical changes and devices: 2 lead cardiac pacemaker, unchanged Lungs and pleura: Consolidation in the right lower lung. No pleural effusions or pneumothorax. Mediastinum: Mediastinal contours appear normal. Heart size is normal. Bones and chest wall: No suspicious bony lesions. Overlying soft tissues appear unremarkable. IMPRESSION: Consolidation concerning for pneumonia. Dictated by: Eduardo Dao M.D. on 05/12/2025 at 15:35 Approved by: Eduardo Dao M.D. on 05/12/2025 at 15:36
[2025-05-12 15:07] LABS: Add Manual Diff / Slide Review NO; Hematocrit 41.7 % (41-53); Hemoglobin 14.0 g/dL (13.5-17.5); Lymphocytes Absolute Auto 900 /uL (1100-4500); Mean Corpuscular HGB Conc 33.6 % (30-36); Mean Corpuscular Hemoglobin 35.3 PG (26-34); Mean Corpuscular Volume 105.1 fL (80-100); Platelet Count 128 X10^3/uL (150-400)
[2025-05-12 15:15] LABS: Alanine Aminotransferase 54 IU/L (<50); Albumin 4.7 g/dL (3.5-5.0); Albumin Globulin Ratio 1.5 (1.0-2.8); Alkaline Phosphatase 158 U/L (38-126); Blood Urea Nitrogen 29 mg/dL (9-20); Calcium 10.2 mg/dL (8.4-10.2); Carbon Dioxide 22 mmol/L (22-32); Chloride 104 mmol/L (98-107); Estimated Glomerular Filt Rate > 60 mL/min (>60); Globulin 3.1 g/dL (1.7-4.1); Glucose 218 mg/dL (70-99); HEMOLYSIS < 15 (0-50); Lactate (Lactic Acid) 2.1 mmol/L (0.7-2.1); Potassium 4.4 mmol/L (3.4-5.1); Sodium 140 mmol/L (137-145); Total Protein 7.8 g/dL (6.3-8.2)
[2025-05-12 15:21] LABS: INR 1.8 (0.9-1.3); Prothrombin Time 20.5 SECONDS (9.4-12.5)
[2025-05-12 15:26] LABS: NT-proBNP (BNP-Adult 18+) 1730 pg/mL (<450); Troponin I 0.053 ng/mL (0.01-0.034)
--- NOTE | 2025-05-12 15:56 | PC.NURSE ---
pt moved from triage room 2 to room 10 for cardiac monitoring
[2025-05-12 16:31] LABS: Reflexed Lactate in 2 Hours Y
--- NOTE | 2025-05-12 16:49 | ED.SOB ---
HPI - SOB/Dyspnea General Chief Complaint: Shortness of Breath/Dyspnea Stated Complaint: Edema in both legs, turning black Time Seen by Provider: 05/12/25 16:49 Source: patient Mode of arrival: Ambulatory Limitations: no limitations History of Present Illness HPI Narrative: 85-year-old gentleman history of neuropathy, afib, t2d, hypertension, diastolic chf, chronic lower extremity lymphedema, chronic anticoagulation with Eliquis, uses walker baseline presents with bilateral leg swelling and nonproductive cough. Per PCP for he has had leg swelling since November 2023. He sees his cone winder who has increase his furosemide to 40 mg daily with potassium supplementation. He denies any active chest pain, fever, chills, body aches, radiating symptoms, nausea vomiting diaphoresis. Other than what is stated 14 point review of system is negative. Related Data Home Medications ?Medication ?Instructions ?Recorded ?Confirmed apixaban 5 mg tablet (Eliquis) 5 mg PO BID 01/10/19 05/08/25 cholecalciferol (vitamin D3) 25 1,000 unit PO DAILY 01/10/19 05/08/25 mcg (1,000 unit) capsule ipratropium bromide 42 mcg (0.06 2 spray intranasal TID 01/10/19 05/08/25 %) nasal spray multivitamin (Multiple Vitamins 1 tab PO DAILY 01/10/19 05/08/25 tablet) acetaminophen 500 mg tablet 1,000 mg PO Q6H PRN Pain 08/06/20 05/08/25 (Tylenol Extra Strength) coenzyme Q10 75 mg capsule (Ultra 300 mg PO DAILY 08/06/20 05/08/25 CoQ10) magnesium 200 mg tablet 400 mg PO DAILY 08/06/20 05/08/25 lactobacillus combination no.8 3 3,000 mmu cells PO DAILY 09/03/20 05/08/25 billion cell capsule (Adult Probiotic) Respironics DreamStation BiPAP 06/13/21 05/08/25 ferrous sulfate 325 mg (65 mg 325 mg PO DAILY 04/27/24 05/08/25 iron) tablet (Jeremías-Time) atorvastatin 40 mg tablet 40 mg PO DAILY 08/07/24 05/08/25 hydroxyzine HCl 25 mg tablet 25 - 50 mg PO ONCE PM PRN itch 08/07/24 05/08/25 Held on 05/08/25. Instructions: Home Medication placed on hold at Doctor's office metoprolol succinate 25 mg 25 mg PO DAILY 08/07/24 05/08/25 tablet,extended release 24 hr triamcinolone acetonide 0.1 % 1 applic topical DAILY PRN Rash 08/07/24 05/08/25 topical cream ascorbate calcium (vitamin C) 500 1 g PO BID 09/12/24 05/08/25 mg tablet d-mannose 500 mg capsule 1,000 mg PO BID 09/12/24 05/08/25 loratadine 10 mg tablet (Allergy 10 mg PO DAILY 09/12/24 05/08/25 Relief (loratadine)) Held on 05/08/25. Instructions: Home Medication placed on hold at Doctor's office mecobalamin (vitamin B12) 1,000 1,000 mcg sublingual DAILY 09/12/24 05/08/25 mcg disintegrating tablet,sublingual ultra cranberry .Route 09/12/24 05/08/25 furosemide 20 mg tablet 20 mg PO DAILY 12/21/24 05/08/25 Previous Rx's ?Medication ?Instructions ?Recorded omeprazole 20 mg capsule,delayed 20 mg PO DAILY #90 caps 06/03/23 release Disabled Parking Permit #1 ea 11/02/23 lisinopril 5 mg tablet 5 mg PO DAILY #90 tabs 09/30/24 methenamine hippurate 1 gram tablet 1 g PO BID #180 tabs 11/04/24 gabapentin 600 mg tablet 600 mg PO BID Neropothy pain and 12/19/24 Held on 12/21/24. nerves #180 tabs Instructions: Home Medication placed on hold at Doctor's office testosterone 1 pump topical DAILY #75 grams 12/21/24 blood sugar diagnostic (OneTouch #100 ea 12/26/24 Verio test strips) lancets 33 gauge (OneTouch Delica #100 ea 12/26/24 Plus Lancet) blood-glucose sensor (Time Warden G7 #4 ea 01/05/25 Sensor device) blood-glucose,aluminum molder,cont #1 ea 01/05/25 (Dexcom G7 Location Manager) glipizide 10 mg tablet, extended 10 mg PO DAILY #30 tabs 01/05/25 release 24 hr bupropion HCl 150 mg 24 hr tablet, 150 mg PO QAM #30 tabs 04/06/25 extended release metformin 1,000 mg tablet 1,000 mg PO BID #180 tabs 04/06/25 tirzepatide 2.5 mg/0.5 mL 2.5 mg (0.5 mL) SUBCUT QWEEK #2 mL 04/25/25 subcutaneous pen injector amoxicillin 875 mg-potassium 1 tab PO Q12H #14 tabs 05/12/25 clavulanate 125 mg tablet azithromycin 250 mg tablet 250 mg PO DAILY 4 days #4 tabs 05/12/25 metoprolol succinate 50 mg capsule 50 mg PO DAILY #30 ea 05/12/25 sprinkle, ext. release 24 hr Allergies Allergy/AdvReac Type Severity Reaction Status Date / Time latex Allergy Intermediate ITCHING Verified 05/12/25 14:25 duloxetine AdvReac Intermediate Confusion Verified 05/12/25 14:25 Review of Systems Review of Systems ROS Unobtainable: All systems reviewed & are unremarkable except as noted in HPI and below Patient History Medical History Allergies Asthma Atrial fibrillation Olmedo's esophagus Carpal tunnel syndrome Cataracts, bilateral Chicken pox Closed fracture of head of right radius Degenerative joint disease (DJD) of hip Diabetes Excessive daytime sleepiness Facet arthropathy, lumbar Fatigue Gait instability Hearing loss Hemorrhoid 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 Hypertension Lumbar radiculopathy Lumbar stenosis with neurogenic claudication Measles Moderately increased albuminuria Mumps Neurogenic bladder Neurogenic bladder, flaccid Obesity (BMI 30-39.9) Obstructive sleep apnea Polyuria Sensory peripheral neuropathy Spondylolisthesis at L4-L5 level Urinary retention Surgical History Anesthesia History of cholecystectomy (~2014) History of circumcision History of penile implant (03/21/18) History of transurethral resection of prostate History of vasectomy Hx of cystoscopy (10/31/20) Pacemaker (05/27/16) Family History Mother Cancer Mental health problem Father Stroke Family/Other Drug overdose Social History marital status: details: Has girlfriend who sometimes stays over household members: none occupational status: previously employed Smoking Status: Former smoker Tobacco: How many years used: 35 alcohol intake: former caffeine: Yes Smoking Status: Former smoker Exam Narrative Exam Narrative: GENERAL: [85] year old patient appears stated age. Well-developed patient, in mild distress. HEAD: Atraumatic. Normocephalic. EYES: Pupils equal round and reactive. Extraocular motions intact. No scleral icterus. No injection or drainage. ENT: Nose without bleeding, purulent drainage. Throat without erythema, tonsillar hypertrophy or exudate. Airway patent. NECK: Trachea midline. Non tender CARDIOVASCULAR: Regular rate and rhythm without murmurs, gallops, or rubs. RESPIRATORY: Clear to auscultation. Breath sounds equal bilaterally. No wheezes, rales, or rhonchi. GASTROINTESTINAL: Abdomen soft, non-tender, nondistended. EXTREMITIES: Trace edema b/l l/e with venous stasis BACK: Nontender without deformity or crepitance. No flank tenderness. NEURO: AOx3. SKIN: No rash or erythema of visible areas Initial Vital Signs Initial Vital Signs: Vital Signs Temperature 97.7 F 05/12/25 14:25 Pulse Rate 60 05/12/25 14:25 Respiratory Rate 22 05/12/25 14:25 Blood Pressure 148/72 H 05/12/25 14:25 Pulse Oximetry 98 05/12/25 14:25 Oxygen Delivery Method Room Air 05/12/25 14:25 Course Orders Ordered: ED Orders 05/12/25 14:31 XR chest 1V Stat EKG-12 Lead Stat Measure peak expiratory flow STAT RT Consult Eval and Treat STAT 05/12/25 14:50 Complete Blood Count AUTO DIFF Stat Comprehensive Metabolic Panel Stat Lactate (Lactic Acid) Stat NT-proBNP (BNP-Adult 18+) Stat Prothrombin Time INR Stat Troponin I Stat 05/12/25 15:54 EKG-12 Lead Stat 05/12/25 16:50 Troponin I Stat Vital Signs Vital signs: Vital Signs - 8 hr 05/12/25 14:25 Temperature 97.7 F Pulse Rate 60 Respiratory Rate 22 Blood Pressure 148/72 H Pulse Oximetry 98 Oxygen Delivery Method Room Air MDM - SOB/Dyspnea Lab Data 05/12/25 14:50 05/12/25 14:50 Labs: Lab Results 05/12/25 Range/Units 14:50 WBC 6.6 (4.5-11.0) X10^3/uL RBC 3.97 L (4.5-5.9) X10^6/uL Hgb 14.0 (13.5-17.5) g/dL Hct 41.7 (41-53) % MCV 105.1 H (80-100) fL MCH 35.3 H (26-34) PG MCHC 33.6 (30-36) % RDW 16.7 H (11.6-14.8) % Plt Count 128 L (150-400) X10^3/uL Neut % (Auto) 72.5 (50-75) % Lymph % (Auto) 13.9 L (25-40) % [place] % (Auto) 9.9 (3-14) % Eos % (Auto) 2.4 (2-4) % Baso % (Auto) 1.3 (0-2) % Neut # (Auto) 4800 (7991-9631) /uL Lymph # (Auto) 900 L (4757-7089) /uL [place] # (Auto) 700 (0-900) /uL Eos # (Auto) 200 (0-450) /uL Baso # (Auto) 100 (0-100) /uL PT 20.5 H (9.4-12.5) SECONDS INR 1.8 H (0.9-1.3) Sodium 140 (137-145) mmol/L Potassium 4.4 (3.4-5.1) mmol/L Chloride 104 (98-107) mmol/L Carbon Dioxide 22 (22-32) mmol/L BUN 29 H (9-20) mg/dL Creatinine 0.83 (0.66-1.25) mg/dL Estimated GFR > 60 (>60) mL/min BUN/Creatinine Ratio 34.9 H (6-22) Glucose 218 H (70-99) mg/dL Lactate 2.1 (0.7-2.1) mmol/L Calcium 10.2 (8.4-10.2) mg/dL Total Bilirubin 1.7 H (0.2-1.3) mg/dL AST 44 (17-59) IU/L ALT 54 H (<50) IU/L Alkaline Phosphatase 158 H (38-126) U/L Troponin I 0.053 H (0.01-0.034) ng/mL NT-Pro-B Natriuret Pep 1730 H (<450) pg/mL Total Protein 7.8 (6.3-8.2) g/dL Albumin 4.7 (3.5-5.0) g/dL Globulin 3.1 (1.7-4.1) g/dL Albumin/Globulin Ratio 1.5 (1.0-2.8) Imaging Data Chest x-ray: Radiologist's Impression: [facility] [place] [id number] XRay Report Signed Patient: David Logan MR#: [id number] : 1940 Acct:[id number] Age/Sex: 85 / M Date of Service: 05/12/25 Loc: ED Accession Number: [id number] Procedure: XR chest 1V Ordering Provider: David Resendiz D.O. PROCEDURE: XR CHEST 1V INDICATIONS: Shortness of breath TECHNIQUE: One view of the chest was acquired. COMPARISON: [facility], , XR CHEST 1V, 08/07/2024, 9:31. FINDINGS: Surgical changes and devices: 2 lead cardiac pacemaker, unchanged Lungs and pleura: Consolidation in the right lower lung. No pleural effusions or pneumothorax. Mediastinum: Mediastinal contours appear normal. Heart size is normal. Bones and chest wall: No suspicious bony lesions. Overlying soft tissues appear unremarkable. IMPRESSION: Consolidation concerning for pneumonia. ECG Data Interpretation: Afib HR 63 IN undetermined QRS [address]-t wave change Change from 08/07/24 [facility] Narrative Medical decision making narrative: All lab work, vital signs, nurse triage note, medication list, previous ER visits, and all imaging studies reviewed. EKG Afib with occassional PVC Chest x-ray showed consolidation right lower lung concerning for pneumonia. WBC 6.6 globin 14 platelet 120 INR 1.8 sodium 140 potassium 4.4 chloride 104 CO2 22 BUN 29 creatinine 0.83 glucose 218. First set troponin 0.053 and second troponin 0.053. BNP 1730. Case d/w troponin leak secondary to Afib/chf f/u with cards for stress test. Differential dx chf, covid, flu, rsv, pneumonia, dvt, cellulitis. D/c home on augmentin and zpack Discharge Plan Departure Patient Disposition: Home Clinical Impression: Pneumonia Instructions: DI for Pneumonia -- Adult Activity Restrictions/Additional Instructions: Return with new or worsening symptoms. Follow up with Cardiology for stress test. Take medicines as directed for pneumonia. Prescriptions: New amoxicillin-pot clavulanate 875-125 mg tablet 1 tab PO Q12H Qty: 14 0RF azithromycin 250 mg tablet 250 mg PO DAILY 4 Days Qty: 4 0RF metoprolol succinate 50 mg capsule,sprinkle,ER 24hr 50 mg PO DAILY Qty: 30 0RF No Action (DME) Dexcom G7 Sensor Device See Rx Instructions .Route Qty: 4 6RF Rx Instructions: USE 1 SENSOR EVERY 10 DAYS (DME) Dexcom G7 Location Manager Misc See Rx Instructions .Route Qty: 1 0RF Rx Instructions: As directed glipizide 10 mg tablet extended release 24hr 10 mg PO DAILY Qty: 30 2RF metformin 1,000 mg tablet 1,000 mg PO BID Qty: 180 1RF bupropion HCl 150 mg tablet extended release 24 hr 150 mg PO QAM Qty: 30 2RF acetaminophen [Tylenol Extra Strength] 500 mg tablet 1,000 mg PO Q6H PRN (Reason: Pain) Ultra CoQ10 75 mg capsule 300 mg PO DAILY magnesium 200 mg tablet 400 mg PO DAILY omeprazole 20 mg capsule,delayed release(DR/EC) 20 mg PO DAILY Qty: 90 3RF lisinopril 5 mg tablet 5 mg PO DAILY Qty: 90 1RF methenamine hippurate 1 gram tablet 1 g PO BID Qty: 180 3RF gabapentin 600 mg tablet 600 mg PO BID Qty: 180 1RF testosterone 20.25 mg/1.25 gram (1.62 %) gel in metered-dose pump 1 pump topical DAILY Qty: 75 5RF Rx Instructions: apply 1 pump amount over max area of ONE upper arm and shoulder (DME) OneTouch Verio test strips Strip See Rx Instructions .ROUTE .MEDSUPPLY Qty: 100 3RF Rx Instructions: Test glucose 3-5times daily (DME) lancets [OneTouch Delica Plus Lancet] 33 gauge misc See Rx Instructions .ROUTE 3XD Qty: 100 3RF Rx Instructions: Test glucose 3-5times daily tirzepatide 2.5 mg/0.5 mL pen injector 2.5 mg SUBCUT QWEEK Qty: 2 2RF Rx Instructions: for 4 weeks ascorbate calcium (vitamin C) 500 mg tablet 1 g PO BID d-mannose 500 mg capsule 1,000 mg PO BID ultra cranberry 500 mg capsule .Route Rx Instructions: Take 1 capsule (500 mg) BID. mecobalamin (vitamin B12) 1,000 mcg tablet,disintegrating 1,000 mcg sublingual DAILY Patient Comments: Patient started B12 tablet once daily on his own. Rx Instructions: place tablet under tongue and allow to dissolve for at least30 secs before swallowing loratadine [Allergy Relief (loratadine)] 10 mg tablet 10 mg PO DAILY atorvastatin 40 mg tablet 40 mg PO DAILY triamcinolone acetonide 0.1 % cream 1 applic topical DAILY PRN (Reason: Rash) hydroxyzine HCl 25 mg tablet 25 - 50 mg PO ONCE PM PRN (Reason: itch) metoprolol succinate 25 mg tablet extended release 24 hr 25 mg PO DAILY Adult Probiotic 3 billion cell capsule 3,000 mmu cells PO DAILY Rx Instructions: administer with a meal furosemide 20 mg tablet 20 mg PO DAILY (DME) Disabled Parking Permit See Rx Instructions .ROUTE .MEDSUPPLY Qty: 1 0RF Rx Instructions: Patient qualifies for disabled parking as per the attached form. multivitamin [Multiple Vitamins] tablet 1 tab PO DAILY ipratropium bromide 42 mcg (0.06 %) spray,non-aerosol 2 spray NASAL TID cholecalciferol (vitamin D3) 1,000 unit capsule 1,000 unit PO DAILY Eliquis 5 mg tablet 5 mg PO BID (DME) Respironics DreamStation BiPAP See Rx Instructions .Route .MEDSUPPLY Rx Instructions: IPAP: 16 EPAP: 5 MaxPS: 5 MinPS: 5 DME: [employer] ferrous sulfate [Jeremías-Time] 325 mg (65 mg iron) tablet 325 mg PO DAILY Referrals: Lazaro Morfin MD [Primary Care Provider, Family Practice] Stand Alone Forms: Patient Portal/API
[2025-05-12 17:21] LABS: Lactate 2HR (Lactic Acid Rflx) 2.0 mmol/L (0.7-2.1)
--- NOTE | 2025-05-12 17:22 | EKG_ITS ---
[place] [address] [address] [address] Test Date: 2025-05-12 Pat Name: David Logan Department: Room: Gender: Male Account Liaison: : 1940 Requested By: Order Number: [id number] Reading MD: Jean Carlos Cunha Measurements Intervals [place] Rate: 60 P: AK: QRS: -72 QRSD: 162 T: 91 QT: 510 QTc: 510 Interpretive Statements Ventricular-paced rhythm Electronically Signed On 05-15-2025 10:19:06 PST by Jean Carlos Cunha
[2025-05-12 17:32] LABS: Troponin I 0.062 ng/mL (0.01-0.034)
[2025-05-12] MEDS: AZITHROMYCIN 500 MG in DEXTROSE 5% IN WATER 250 ML 250 MG IV (19:14)
== END 2025-05-12 20:15 | disposition home or self-care (01) ==
PROVIDERS: Emergency Provider Family Medicine; PCP Family Medicine
DX: J18.9 Pneumonia, unspecified organism (principal); R22.43 Localized swelling, mass and lump, lower limb, bilateral; I10 Essential (primary) hypertension
CPT/HCPCS: 36415; 71045; 80053; 81003; 81015; 83605; 83880; 84484; 85025; 85610; 87040; 87077; 87086; 87186; 93005; 96365; 96367; 99284; J0696; J7050; J7060

== ENCOUNTER → 2025-05-16 13:38 | Outpatient (CLI) | payer MEDICARE, OTHER, SELFPAY ==
[2024-08-07 14:43] VITALS: BMI 34.3
--- NOTE | 2025-05-16 16:20 | DIAB.FU ---
Follow-up Diabetes Education Assessment Name: David Logan (Carlos) Date: 05/16/25 Time: 205-235p Dx: Type II Diabetes Carlos presents for DM follow-up visit. Started Mounjaro at 2.5mg x 2 weeks. No rx for titration yet. Recent ED visit for pneumonia and plans to see PCP soon, needs appt. Encouraged him to discuss GLP1 titration schedule with provider as well. Denies any significant SE with Mounjaro, some nausea which subsides. No constipation. Predicted increased BG recently with illness. Reports poor sleep with frequent itching, which nephrology social worker attributed to anemia per report. Carlos then had iron infusion 04/25 per report. Still itching. Sees Seismograph Helper in 2 months. Has made diet changes we discussed. Still having elevated BG UTD on eye appt. Sees q 6 months. No concerns. Checks feet q day Diet recall: B: fiber one cereal with protein shake OR steven and eggs with [place] steven L: 1/2 sandwich OR fruit D: frozen veg and chx Or salad and protein HS sn: yogurt with berries or just berries Anthropometrics: Ht: 68 Wt: 237# 03/2025 225# 12/2024 Reports 221.5# at home today Physical Activity: No program. Feeling fatigue, unclear if from anemia or recent illness per report. Plans to restart PT next week. Self-Monitoring Blood Glucose: Wearing Dexcom G7. Increase in hyperglycemia 180-250mg/dl, however reduced BG >250mg/dl since last visit. TIR: 15% very high 70% high 15% in range 0% low or very low avmg/dl GMI: 8.5% std dev: 34 mg/dl variance: 15.7% Last TIR: 30% very high 41% high 29% in range 0% low or very low avmg/dl GMI: 8.5% std dev: 58 mg/dl variance: 26.6% Diabetes Medications: 10mg Glipizide 50-1000mg Janumet BID 2.5mg Mounjaro weekly Pertinent Labs: HgA1c: 8.9% 12/2024 8.4% 02/2025 Past Medical History: (Last Reviewed 12/21/24 @ 13:38 by Logan Mcintosh DO) Allergies Asthma Atrial fibrillation Olmedo's esophagus Carpal tunnel syndrome Cataracts, bilateral Chicken pox Closed fracture of head of right radius Degenerative joint disease (DJD) of hip Diabetes Excessive daytime sleepiness Facet arthropathy, lumbar Fatigue Gait instability Hearing loss Hearing aidsHemorrhoid History of Guillain-Hatfield syndrome due to influenza immunization Hypertension Lumbar radiculopathy Lumbar stenosis with neurogenic claudication Measles Moderately increased albuminuria 06/16/23: 96.6 ug/mg CRMumps Neurogenic bladder Neurogenic bladder, flaccid Obesity (BMI 30-39.9) Obstructive sleep apnea Polyuria Sensory peripheral neuropathy Spondylolisthesis at L4-L5 level Urinary retention Intervention: This participant was very receptive. Provided appropriate educational handouts. Discussed the following topics: Usual titration schedule for GLP1 Action and Se potential with GLP1 Impact of sleep and illness on BG Created SMART goals for patient self-care and success. Goals: Try new meal idea discussed- met fitness supervisor GLP1 prn- met Make appt with PCP and discuss GLP1 titration- new Call nephrology social worker for visit- new Follow-up: ARLET ROMERO follow-up in 4-5 weeks Yamel Zavala RDN, HEATHER Certified Diabetes Care and Resident Services Manager P: [phone] Thank you for this referral
== END ==
LOC: DIET 13:39
PROVIDERS: PCP Family Medicine; Referring Provider Family Medicine
DX: E11.65 Type 2 diabetes mellitus with hyperglycemia (principal); Z71.3 Dietary counseling and surveillance; Z79.85 Long-term (current) use of injectable non-insulin antidiabetic drugs; Z79.84 Long term (current) use of oral hypoglycemic drugs
CPT/HCPCS: G0108